=== PATIENT | male | born 1950 | race Caucasian/White ===

== ENCOUNTER 2019-03-19 18:41 | Inpatient (IN) | payer MEDICARE, BC ==
[2019-03-19] MEDS ORDERED: SODIUM CHLORIDE 0.9% 1,000 ML IV STA ×2 (19:36)
[2019-03-19] MEDS ORDERED: KETOROLAC 30 MG/ML 1 ML VIAL IVP STA (19:37)
--- NOTE | 2019-03-19 19:40 | ED ---
Fever HPI - General Chief Complaint: Fever Stated Complaint: Chills, Back Pain Time Seen by Provider: 03/19/19 18:53 Source: patient, family, RN notes reviewed Mode of arrival: wheelchair Limitations: no limitations - History of Present Illness Initial Comments: This is a 68-year-old male with a history of hypertension appendectomy past who just arrived this afternoon for [facility] where he drove from to attend a democrat today. Approximate 2-30 p.m. today started developing shakes upon arrival here he was found have a fever with a temperature 104.7. He is tachycardic he complains left flank pain. No prior history of kidney disease kidney stones pyelonephritis no overt abdominal pain. No cough or shortness of breath no other symptoms other than sharp left-sided flank pain at this time. MD Complaint: fever, other - Related Data Home Medications Medication Instructions Recorded Confirmed Aspirin EC [Ecotrin Low Dose] 81 mg PO DAILY 03/19/19 03/19/19 Atorvastatin [Lipitor] 40 mg PO DAILY 03/19/19 03/19/19 Lisinopril 20 mg PO DAILY 03/19/19 03/19/19 Lisinopril [Zestril] 10 mg PO DAILY 03/19/19 03/19/19 Multivitamins, Thera [Multivitamin 1 tab PO DAILY 03/19/19 03/19/19 (formulary)] Allergies Allergy/AdvReac Type Severity Reaction Status Date / Time No Known Allergies Allergy Verified 03/19/19 19:50 Review of Systems ROS Statement: Those systems with pertinent positive or pertinent negative responses have been documented in the HPI. ROS Other: All systems not noted in ROS Statement are negative. Past Medical History Past Medical History: Hyperlipidemia, Hypertension History of Any Multi-Drug Resistant Organisms: None Reported Past Surgical History: Appendectomy, Orthopedic Surgery Past Psychological History: No Psychological Hx Reported Smoking Status: Never smoker Past Alcohol Use History: Daily Past Drug Use History: None Reported General Exam - General Exam Comments Initial Comments: This is a well-developed well-nourished awake alert oriented times 3 male Limitations: no limitations General appearance: alert, anxious, in distress Head exam: Present: atraumatic, normocephalic, normal inspection Eye exam: Present: normal appearance, PERRL, EOMI. Absent: scleral icterus, conjunctival injection, periorbital swelling ENT exam: Present: mucous membranes dry Neck exam: Present: normal inspection. Absent: tenderness, meningismus, lymphadenopathy Respiratory exam: Present: normal lung sounds bilaterally. Absent: respiratory distress, wheezes, rales, rhonchi, stridor Cardiovascular Exam: Present: normal rhythm, tachycardia, normal heart sounds. Absent: systolic murmur, diastolic murmur, rubs, gallop, clicks GI/Abdominal exam: Present: soft, normal bowel sounds. Absent: distended, tenderness, guarding, rebound, rigid Extremities exam: Present: normal inspection, full ROM, normal capillary refill. Absent: tenderness, pedal edema, joint swelling, calf tenderness Back exam: Present: normal inspection Neurological exam: Present: alert, oriented X3, CN II-XII intact Psychiatric exam: Present: normal affect, normal mood Skin exam: Present: warm, dry, intact, normal color. Absent: rash Course Vital Signs 03/19/19 03/19/19 03/19/19 18:53 19:27 19:42 Temperature 103 F H 104.7 F H 104.7 F H Pulse Rate 129 H 129 H 130 H Respiratory 20 20 20 Rate Blood Pressure 115/70 165/80 149/80 O2 Sat by Pulse 93 L 93 L 95 Oximetry 03/19/19 03/19/19 03/19/19 19:57 20:00 20:15 Temperature 104.7 F H 104.7 F H 104.8 F H Pulse Rate 128 H 135 H 129 H Respiratory 18 19 19 Rate Blood Pressure 141/95 148/82 125/81 O2 Sat by Pulse 94 L 93 L 94 L Oximetry 03/19/19 03/19/19 03/19/19 20:30 20:45 22:03 Temperature 104.9 F H 104.9 F H 102.5 F H Pulse Rate 133 H 130 H 106 H Respiratory 19 19 19 Rate Blood Pressure 122/88 119/76 118/75 O2 Sat by Pulse 95 93 L 93 L Oximetry 03/20/19 00:21 Temperature 99.4 F Pulse Rate 99 Respiratory 18 Rate Blood Pressure 121/77 O2 Sat by Pulse 94 L Oximetry - Reevaluation(s) Reevaluation #1: 03/20/19 00:23 I did reevaluate patient several occasions he did get some improvement after IV fluids and pain medication. Medical Decision Making - Medical Decision Making I did discuss the findings with the patient family members. Patient be admitted I did discuss case with Dr. Rider. The presentation consistent with pneumonia hyper pyrexia some dehydration - Lab Data Result diagrams: 03/19/19 20:41 03/19/19 20:41 Lab Results 03/19/19 03/19/19 03/19/19 Range/Units 19:25 20:41 20:41 WBC 13.8 H (3.8-10.6) k/uL RBC 4.68 (4.30-5.90) m/uL Hgb 14.4 (13.0-17.5) gm/dL Hct 43.6 (39.0-53.0) % MCV 93.2 (80.0-100.0) fL MCH 30.9 (25.0-35.0) pg MCHC 33.1 (31.0-37.0) g/dL RDW 14.0 (11.5-15.5) % Plt Count 243 (150-450) k/uL Neutrophils % 91 % Lymphocytes % 3 % Monocytes % 4 % Eosinophils % 2 % Basophils % 0 % Neutrophils # 12.5 H (1.3-7.7) k/uL Lymphocytes # 0.4 L (1.0-4.8) k/uL Monocytes # 0.5 (0-1.0) k/uL Eosinophils # 0.2 (0-0.7) k/uL Basophils # 0.1 (0-0.2) k/uL Sodium 137 (137-145) mmol/L Potassium 4.2 (3.5-5.1) mmol/L Chloride 105 (98-107) mmol/L Carbon Dioxide 23 (22-30) mmol/L Anion Gap 9 mmol/L BUN 17 (9-20) mg/dL Creatinine 1.04 (0.66-1.25) mg/dL Est GFR (CKD-EPI)AfAm 84 (>60 ml/min/1.73 sqM) Est GFR (CKD-EPI)NonAf 73 (>60 ml/min/1.73 sqM) Glucose 155 H (74-99) mg/dL Plasma Lactic Acid Reilly (0.7-2.0) mmol/L Calcium 9.5 (8.4-10.2) mg/dL Magnesium 1.8 (1.6-2.3) mg/dL Total Bilirubin 0.7 (0.2-1.3) mg/dL AST 23 (17-59) U/L ALT 27 (21-72) U/L Alkaline Phosphatase 98 (38-126) U/L Creatine Kinase 183 H (55-170) U/L Total Protein 7.0 (6.3-8.2) g/dL Albumin 4.1 (3.5-5.0) g/dL Urine Color Yellow Urine Appearance Clear (Clear) Urine pH 6.0 (5.0-8.0) Ur Specific [place] 1.025 (1.001-1.035) Urine Protein 1+ H (Negative) Urine Glucose (UA) Negative (Negative) Urine Ketones Negative (Negative) Urine Blood Negative (Negative) Urine Nitrite Negative (Negative) Urine Bilirubin Negative (Negative) Urine Urobilinogen 4.0 (<2.0) mg/dL Ur Leukocyte Esterase Negative (Negative) Urine RBC 1 (0-5) /hpf Urine WBC 2 (0-5) /hpf Ur Squamous Epith Cells <1 (0-4) /hpf Hyaline Casts 13 H (0-2) /lpf Urine Mucus Many H (None) /hpf 03/19/19 Range/Units 20:41 WBC (3.8-10.6) k/uL RBC (4.30-5.90) m/uL Hgb (13.0-17.5) gm/dL Hct (39.0-53.0) % MCV (80.0-100.0) fL MCH (25.0-35.0) pg MCHC (31.0-37.0) g/dL RDW (11.5-15.5) % Plt Count (150-450) k/uL Neutrophils % % Lymphocytes % % Monocytes % % Eosinophils % % Basophils % % Neutrophils # (1.3-7.7) k/uL Lymphocytes # (1.0-4.8) k/uL Monocytes # (0-1.0) k/uL Eosinophils # (0-0.7) k/uL Basophils # (0-0.2) k/uL Sodium (137-145) mmol/L Potassium (3.5-5.1) mmol/L Chloride (98-107) mmol/L Carbon Dioxide (22-30) mmol/L Anion Gap mmol/L BUN (9-20) mg/dL Creatinine (0.66-1.25) mg/dL Est GFR (CKD-EPI)AfAm (>60 ml/min/1.73 sqM) Est GFR (CKD-EPI)NonAf (>60 ml/min/1.73 sqM) Glucose (74-99) mg/dL Plasma Lactic Acid Reilly 1.6 (0.7-2.0) mmol/L Calcium (8.4-10.2) mg/dL Magnesium (1.6-2.3) mg/dL Total Bilirubin (0.2-1.3) mg/dL AST (17-59) U/L ALT (21-72) U/L Alkaline Phosphatase (38-126) U/L Creatine Kinase (55-170) U/L Total Protein (6.3-8.2) g/dL Albumin (3.5-5.0) g/dL Urine Color Urine Appearance (Clear) Urine pH (5.0-8.0) Ur Specific [place] (1.001-1.035) Urine Protein (Negative) Urine Glucose (UA) (Negative) Urine Ketones (Negative) Urine Blood (Negative) Urine Nitrite (Negative) Urine Bilirubin (Negative) Urine Urobilinogen (<2.0) mg/dL Ur Leukocyte Esterase (Negative) Urine RBC (0-5) /hpf Urine WBC (0-5) /hpf Ur Squamous Epith Cells (0-4) /hpf Hyaline Casts (0-2) /lpf Urine Mucus (None) /hpf - Radiology Data Radiology results: report reviewed (I did review the imaging and report evidence of a left lower lobe infiltrate. Nonspecific abdominal findings renal cyst noted), image reviewed Disposition Clinical Impression: Left lower lobe pneumonia, Hyperpyrexia, Dehydration, Tachycardia, Left flank pain Disposition: ADMITTED IP TO THIS [facility] Condition: Fair Referrals: Nonstaff,Physician [Primary Care Provider] - 1-2 days
[2019-03-19 19:53] LABS: Appearance,Urine Clear (Clear); Bilirubin,Urine Negative (Negative); Blood,Urine Negative (Negative); Color,Urine Yellow; Glucose,Urine (UA) Negative (Negative); Hyaline Casts,Urine 13 /lpf (0-2); Ketones,Urine Negative (Negative); Leukocyte Esterase,Urine Negative (Negative); Mucus,Urine Many /hpf; Nitrite,Urine Negative (Negative); Protein,Urine 1+ (Negative); RBC,Urine 1 /hpf (0-5); Specific Gravity,Urine 1.025 (1.001-1.035); Squamous Epithelial Cell,Urine <1 /hpf (0-4)
[2019-03-19] MEDS ORDERED: cefTRIAXone IN SWFI 1,000 MG/10 ML SYRINGE IVP STA (20:14)
--- NOTE | 2019-03-19 20:18 | XR ---
EXAMINATION TYPE: XR chest 2V DATE OF EXAM: 03/19/2019 COMPARISON: None HISTORY: 68-year-old male with cough TECHNIQUE: PA and lateral views FINDINGS: Are normal size. Low lung volumes and crowded vascular markings. Aorta within normal limits. Possible subtle nodularity or summation artifact right midlung. Possible larger nodularity versus infiltrate along the left heart margin. Additional patchy left basilar and posterior basilar opacity. IMPRESSION: Either atelectasis or pneumonia the left base. Correlate with patient's symptoms. Follow-up after treatment to exclude a mass along the left heart margin. On the follow-up exam, the r ight mid lung can also be assessed to exclude a nodule here.
--- NOTE | 2019-03-19 20:20 | XR ---
EXAMINATION TYPE: XR KUB DATE OF EXAM: 03/19/2019 CLINICAL DATA: 68-year-old male with pain, PHH COMPARISON: None FINDINGS: Lung bases are clear. No evidence for free intraperitoneal air. There are scattered colonic air-fluid levels. No significant stool burden. A small bowel loop in the right midabdomen is dilated at 4.0 cm. Rectal air is present. IMPRESSION: Scattered air-fluid levels. Air-fluid levels are present in the colon as well suggesting liquid stool . A dilated small bowel loop in the right mid abdomen measures 4.0 cm. Correlate for enteritis or gen eralized ileus.
[2019-03-19 20:56] LABS: Basophils # (A) 0.1 k/uL (0-0.2); Basophils % (A) 0 %; Eosinophils # (A) 0.2 k/uL (0-0.7); Eosinophils % (A) 2 %; HCT 43.6 % (39.0-53.0); HGB 14.4 gm/dL (13.0-17.5); Lymphocytes # (A) 0.4 k/uL (1.0-4.8); Lymphocytes % (A) 3 %; MCH 30.9 pg (25.0-35.0); MCHC 33.1 g/dL (31.0-37.0); MCV 93.2 fL (80.0-100.0); Mean Platelet Volume 7.4; Monocytes # (A) 0.5 k/uL (0-1.0); Monocytes % (A) 4 %; Neutrophils # (A) 12.5 k/uL (1.3-7.7); Neutrophils % (A) 91 %; Platelet Count 243 k/uL (150-450); RBC 4.68 m/uL (4.30-5.90); WBC 13.8 k/uL (3.8-10.6)
[2019-03-19 21:04] LABS: Albumin 4.1 g/dL (3.5-5.0); Calcium 9.5 mg/dL (8.4-10.2); Magnesium 1.8 mg/dL (1.6-2.3); Potassium 4.2 mmol/L (3.5-5.1); Total Bilirubin 0.7 mg/dL (0.2-1.3)
--- NOTE | 2019-03-19 23:40 | CT ---
EXAM: CT Chest With Intravenous Contrast CLINICAL HISTORY: Trauma fever chills back pain TECHNIQUE: Axial computed tomography images of the chest with intravenous contrast. CTDI is 24.3 mGy and DLP is 1439 mGy-cm. This CT exam was performed using one or more of the following dose reduction techniques: automated exposure control, adjustment of the mA and/or kV according to patient size, and/or use of iterative reconstruction technique. COMPARISON: No relevant prior studies available. FINDINGS: Lungs: Consolidation and infiltrate in the left lower lobe with small associated pleural effusion findings may represent infectious pneumonic process. Mild chronic changes in the right lung base from atelectasis. Pleural space: Unremarkable. No pneumothorax. No significant effusion. Heart: Unremarkable. No cardiomegaly. No significant pericardial effusion. Bones/joints: Unremarkable. No acute fracture. Old healed rib fractures on the left. Soft tissues: Unremarkable. Vasculature: Unremarkable. No thoracic aortic aneurysm. Lymph nodes: Unremarkable. No enlarged lymph nodes. IMPRESSION: Left lower lobe consolidation and associated effusion suspicious for an infectious pneumonic process EXAM: CT Abdomen and Pelvis With Intravenous Contrast CLINICAL HISTORY: Trauma, fevers chills back pain TECHNIQUE: Axial computed tomography images of the abdomen and pelvis with intravenous contrast. CTDI is 24.3 mGy and DLP is 1439 mGy-cm. This CT exam was performed using one or more of the following dose reduction techniques: automated exposure control, adjustment of the mA and/or kV according to patient size, and/or use of iterative reconstruction technique. COMPARISON: No relevant prior studies available. FINDINGS: Lung bases: Unremarkable. No mass. No consolidation. ABDOMEN: Liver: Unremarkable. No mass. Gallbladder and bile ducts: Unremarkable. No calcified stones. No ductal dilation. Pancreas: Unremarkable. No mass. No ductal dilation. Spleen: Unremarkable. No splenomegaly. Adrenals: Unremarkable. No mass. Kidneys and ureters: 7.4 cm cyst upper pole left kidney. No evidence for hydronephrosis. There is some bilateral perinephric stranding but no evidence for acute abnormality of the kidneys. No solid mass. No hydronephrosis. Stomach and bowel: Unremarkable. No obstruction. No mucosal thickening. PELVIS: Appendix: The appendix is not identified. Bladder: Unremarkable. No mass. Reproductive: Unremarkable as visualized. ABDOMEN and PELVIS: Intraperitoneal space: Unremarkable. No free air. No significant fluid collection. Bones/joints: Chronic degenerative changes lumbar spine no evidence for acute fracture areas bilateral spondylolysis at L5-S1 which is chronic. Soft tissues: Unremarkable. Vasculature: Unremarkable. No abdominal aortic aneurysm. Lymph nodes: Unremarkable. No enlarged lymph nodes. IMPRESSION: No acute abnormality in the abdomen or pelvis
[2019-03-20] MEDS ORDERED: AZITHROMYCIN 500 MG in SODIUM CHLORIDE 0.9% 250 ML IVPB STA (00:26)
[2019-03-20] MEDS ORDERED: PNEUMONIA PROTOCOL UTILIZED 1 EACH MISC PO PRN (00:26)
[2019-03-20] MEDS: SODIUM CHLORIDE 0.9% 1,000 ML IV SCH ×3 (00:55→20:08)
[2019-03-20] MEDS: HYDROcodone/APAP 5-325MG 1 EACH TAB PO PRN ×2 (02:43→11:32)
--- NOTE | 2019-03-20 02:43 | P.HPIM ---
History of Present Illness H&P Date: 03/20/19 Chief Complaint: fever and chills, coughing 5-year-old male with history of hypertension hyperlipidemia Patient has been at his baseline status of health up until few days ago when he noticed some coughing yesterday productive of thick sputum today [place]daughter[place] graduation libertarian when in route he felt weak started having chills and fever felt extremely tired and decided come the hospital He denies any chest pain or trouble breathing denies any wheezing denies any nausea vomiting or any no sore throat abdominal pain changes in his urinary or bowel habits denies any GI bleeding he denies any recent traveling out of the country or exposure to any inhalant irritants. He denies any smoking denies any weight loss denies any hemoptysis denies any night sweats In the ED CT scan showed consolidation left lower lobe with effusion suggestive of pneumonia patient was febrile tachycardic with elevated white count admitted for sepsis 08/20 penumonia Review of Systems Pertinent positives as noted in HPI. All other systems were reviewed and are negative Past Medical History Past Medical History: Hyperlipidemia, Hypertension Additional Past Medical History / Comment(s): Pt has sleep apnea, just completed sleep study; has new CPAP History of Any Multi-Drug Resistant Organisms: None Reported Past Surgical History: Appendectomy, Orthopedic Surgery Additional Past Surgical History / Comment(s): left knee surgery 50 years Past Anesthesia/Blood Transfusion Reactions: No Reported Reaction Past Psychological History: No Psychological Hx Reported Smoking Status: Former smoker Past Alcohol Use History: Daily Past Drug Use History: None Reported Medications and Allergies Home Medications Medication Instructions Recorded Confirmed Type Aspirin EC [Ecotrin Low Dose] 81 mg PO DAILY 03/19/19 03/19/19 History Atorvastatin [Lipitor] 40 mg PO DAILY 03/19/19 03/19/19 History Lisinopril 20 mg PO DAILY 03/19/19 03/19/19 History Lisinopril [Zestril] 10 mg PO DAILY 03/19/19 03/19/19 History Multivitamins, Thera [Multivitamin 1 tab PO DAILY 03/19/19 03/19/19 History (formulary)] Allergies Allergy/AdvReac Type Severity Reaction Status Date / Time No Known Allergies Allergy Verified 03/19/19 19:50 Physical Exam Vitals: Vital Signs Temp Pulse Pulse Resp BP BP Pulse Ox 03/20/19 01:50 98.6 F 83 20 118/73 94 L 03/20/19 00:21 99.4 F 99 18 121/77 94 L 03/19/19 22:03 102.5 F H 106 H 19 118/75 93 L 03/19/19 20:45 104.9 F H 130 H 19 119/76 93 L 03/19/19 20:30 104.9 F H 133 H 19 122/88 95 03/19/19 20:15 104.8 F H 129 H 19 125/81 94 L 03/19/19 20:00 104.7 F H 135 H 19 148/82 93 L 03/19/19 19:57 104.7 F H 128 H 18 141/95 94 L 03/19/19 19:42 104.7 F H 130 H 20 149/80 95 03/19/19 19:27 104.7 F H 129 H 20 165/80 93 L 03/19/19 18:53 103 F H 129 H 20 115/70 93 L Intake and Output 03/19/19 03/19/19 03/20/19 14:59 22:59 06:59 Other: Weight 90.718 kg Constitutional: No acute distress, conversant, pleasant Eyes: Anicteric sclerae, moist conjunctiva, no lid-lag Pupils equal round reactive to light ENMT: NC/AT Oropharynx clear, no erythema, exudates Neck: Supple, FROM, no masses, or JVD No carotid bruits No thyromegaly Lungs: good breath sounds bilaterally, inspiratory rales at lung bases Clear to percussion Normal respiratory effort, no accessory muscle use Cardiovascular: Heart regular in rate and rhythm, No murmurs, gallops, or rubs No peripheral edema Abdominal: Soft Nontender, no guarding, rebound or rigidity Abdomen moving with respiration Normoactive bowel sounds No hepatomegaly, No splenomegaly No palpable mass No abdominal wall hernia noted Skin: Normal temperature, tone, texture, turgor No induration No subcutaneous nodules No rash, lesions No ulcers Extremities: No digital cyanosis No clubbing Pedal pulses intact and symmetrical Radial pulses intact and symmetrical No calf tenderness Psychiatric: Alert and oriented to person, place and time Appropriate affect fair judgement Neuro Muscles Strength 5/5 in all 4 extremities Sensation to light touch grossly present throughout Cranial nerves II-XII grossly intact No focal sensory deficits Lymphatics: no palpable cervical or supraclavicular , or inguinal lymph nodes Results CBC & Chem 7: 03/19/19 20:41 03/19/19 20:41 Labs: Abnormal Lab Results - Last 24 Hours (Table) 03/19/19 03/19/19 03/19/19 Range/Units 19:25 20:41 20:41 WBC 13.8 H (3.8-10.6) k/uL Neutrophils # 12.5 H (1.3-7.7) k/uL Lymphocytes # 0.4 L (1.0-4.8) k/uL Glucose 155 H (74-99) mg/dL Creatine Kinase 183 H (55-170) U/L Urine Protein 1+ H (Negative) Hyaline Casts 13 H (0-2) /lpf Urine Mucus Many H (None) /hpf Thrombosis Risk Factor Assmnt - Choose All That Apply Any of the Below Risk Factors Present?: Yes Each Factor Represents 1 point: Obesity (BMI >25) Other Risk Factors: Yes Each Risk Factor Represents 2 Points: Age 61-74 years Thrombosis Risk Factor Assessment Total Risk Factor Score: 3 Thrombosis Risk Factor Assessment Level: Moderate Risk Assessment and Plan Assessment: 68-year-old male with history of hypertension hyperlipidemia admitted as an inpa tient with anticipated length of stay more than 2 midnights for community- acquired pneumonia and sepsis Plan: sepsis community acquired pneumonia patient started on antibiotics follow-up cultures Continue Rocephin and azithromycin Tylenol for fevers [place] for pain control Monitor vital signs chronic conditions hypertension hyperlipidemia resume home meds CODE STATUS full code DVT prophylaxis: heparin subcu 3 times a day Discussed with: Patient, ER, RN Anticipated length of stay more than [address]: home A total of 60 minutes was spent on the care of this complex patient more than 50% of the time was spent in counseling and care coordination.
[2019-03-20] MEDS: IPRATROPIUM-ALBUTEROL 3 ML NEB INHALATION SCH ×6 (03:26→23:25)
[2019-03-20] MEDS: HEPARIN SODIUM,PORCINE 5,000 UNIT/ML 1 ML VIAL SQ SCH ×2 (08:14→16:56)
[2019-03-20] MEDS: ASPIRIN 81 MG PO SCH (08:15)
[2019-03-20] MEDS: MULTIVITAMINS, THERA 1 EACH TAB PO SCH (08:15)
[2019-03-20] MEDS: ATORVASTATIN 40 MG TAB PO SCH (08:15)
[2019-03-20] MEDS: LISINOPRIL 20 MG TAB PO SCH (08:16)
[2019-03-20] MEDS: LISINOPRIL 10 MG TAB PO SCH (08:16)
[2019-03-20] MEDS: ACETAMINOPHEN TAB 500 MG TAB PO PRN (15:51)
[2019-03-20] MEDS: KETOROLAC 30 MG/ML 1 ML VIAL IVP SCH (16:51)
[2019-03-20] MEDS ORDERED: IPRATROPIUM-ALBUTEROL 3 ML NEB INHALATION PRN (16:56)
--- NOTE | 2019-03-20 16:59 | P.PN ---
Subjective Progress Note Date: 03/20/19 Patient seen and examined in follow-up complaining of posterior left back pain worse with deep breaths, nursing reporting low-grade fever. Objective - Vital Signs Vital signs: Vital Signs Temp 100.6 F H 03/20/19 15:00 Pulse 80 03/20/19 15:51 Resp 20 03/20/19 15:01 BP 152/84 03/20/19 15:00 Pulse Ox 87 L 03/20/19 15:01 Intake & Output 03/19/19 03/20/19 03/20/19 18:59 06:59 18:59 Intake Total 100 520 Balance 100 520 Weight 90.718 kg Intake: Oral 100 520 Other: # Voids 2 4 # Bowel Movements 0 - Exam Constitutional: No acute distress, conversant, pleasant Eyes: Anicteric sclerae, moist conjunctiva, no lid-lag, PERRLA ENMT: NC/AT,Oropharynx clear, no erythema, exudates Neck:Supple, FROM, no masses, or JVD, No carotid bruits; No thyromegaly Lungs: Left Lower lung field rhonchi, unlabored on 2 L nasal cannula Cardiovascular: Heart regular in rate and rhythm, No murmurs, gallops, or rubs no peripheral edema Abdominal: Soft Nontender, nom distended, no guarding, no rebound or rigidity, Normoactive bowel sounds No hepatomegaly, No splenomegaly, No palpable mass No abdominal wall hernia noted Skin: Normal temperature, tone, texture, turgor, No induration No subcutaneous nodules, No rash, lesions, No ulcers Extremities:No digital cyanosis No clubbing, Pedal pulses intact and symmetrical Radial pulses intact and symmetrical Normal gait and station, No calf tenderness Psychiatric: Alert and oriented to person, place and time, Appropriate affect Intact judgement Neuro: Muscles Strength 5/5 in all 4 extremities, Sensation to light touch grossly present throughout, Cranial nerves II-XII grossly intact. No focal sensory deficits - Labs CBC & Chem 7: 03/19/19 20:41 03/19/19 20:41 Labs: Abnormal Lab Results - Last 24 Hours (Table) 03/19/19 03/19/19 03/19/19 Range/Units 19:25 20:41 20:41 WBC 13.8 H (3.8-10.6) k/uL Neutrophils # 12.5 H (1.3-7.7) k/uL Lymphocytes # 0.4 L (1.0-4.8) k/uL Glucose 155 H (74-99) mg/dL Creatine Kinase 183 H (55-170) U/L Urine Protein 1+ H (Negative) Hyaline Casts 13 H (0-2) /lpf Urine Mucus Many H (None) /hpf Assessment and Plan (1) Sepsis Narrative/Plan: * Patient still febrile, recheck CBC previous with leukocytosis of 13.8 * Secondary to left lower lobe community-acquired pneumonia * Continue empiric IV antibiotics with Rocephin and azithromycin, sputum culture sent, blood culture pending * Patient hemodynamically stable, Current Visit: Yes Status: Acute Code(s): A41.9 - SEPSIS, UNSPECIFIED ORGANISM SNOMED Code(s): 61711638 (2) Acute respiratory failure with hypoxia Narrative/Plan: * Secondary to left lower lobe community-acquired pneumonia * noted desaturations On 2 L nasal cannula continue with supplemental titrated up to keep saturations 9092% * Continue breathing treatments, will add Mucinex, Prn DUO nebs, IS Current Visit: Yes Status: Acute Code(s): J96.01 - ACUTE RESPIRATORY FAILURE WITH HYPOXIA SNOMED Code(s): 73726713 (3) Left lower lobe pneumonia Narrative/Plan: * Continue antibiotic coverage for community-acquired protocol Current Visit: Yes Status: Acute Code(s): J18.1 - LOBAR PNEUMONIA, UNSPECIFIED ORGANISM SNOMED Code(s): 366197291 (4) Essential hypertension Narrative/Plan: * Blood pressure stable and controlled continue current regimen Current Visit: Yes Status: Acute Code(s): I10 - ESSENTIAL (PRIMARY) HYPERTENSION SNOMED Code(s): 59056593 (5) Hyperlipidemia Narrative/Plan: * Continue home regimen Current Visit: Yes Status: Acute Code(s): E78.5 - HYPERLIPIDEMIA, UN SPECIFIED SNOMED Code(s): 56090078 Plan: Disposition * Added Toradol for pain, IS, prn duo nebs * Recheck labs tomorrow and chest x-ray
[2019-03-20 17:14] LABS: Basophils # (A) 0.1 k/uL (0-0.2); Basophils % (A) 0 %; Eosinophils # (A) 0.1 k/uL (0-0.7); Eosinophils % (A) 1 %; HCT 40.6 % (39.0-53.0); HGB 13.5 gm/dL (13.0-17.5); Lymphocytes % (A) 7 %; MCH 31.7 pg (25.0-35.0); MCHC 33.3 g/dL (31.0-37.0); MCV 95.3 fL (80.0-100.0); Mean Platelet Volume 7.8; Monocytes # (A) 0.8 k/uL (0-1.0); Monocytes % (A) 5 %; Neutrophils # (A) 13.6 k/uL (1.3-7.7); Neutrophils % (A) 87 %; Platelet Count 247 k/uL (150-450); RBC 4.26 m/uL (4.30-5.90); RDW 14.2 % (11.5-15.5); WBC 15.7 k/uL (3.8-10.6)
[2019-03-20] MEDS: guaiFENesin 600 MG TABLET.ER PO SCH (20:09)
[2019-03-21] MEDS: AZITHROMYCIN 500 MG TAB PO SCH ×2 (00:17→23:59)
[2019-03-21] MEDS: KETOROLAC 30 MG/ML 1 ML VIAL IVP SCH ×4 (00:18→18:47)
[2019-03-21] MEDS: HEPARIN SODIUM,PORCINE 5,000 UNIT/ML 1 ML VIAL SQ SCH ×4 (00:18→23:59)
[2019-03-21] MEDS: IPRATROPIUM-ALBUTEROL 3 ML NEB INHALATION SCH ×6 (05:41→23:45)
[2019-03-21] MEDS: SODIUM CHLORIDE 0.9% 1,000 ML IV SCH ×2 (08:06→16:52)
[2019-03-21] MEDS: ACETAMINOPHEN TAB 500 MG TAB PO PRN ×2 (08:06→22:26)
[2019-03-21] MEDS: ATORVASTATIN 40 MG TAB PO SCH (08:07)
[2019-03-21] MEDS: ASPIRIN 81 MG PO SCH (08:07)
[2019-03-21] MEDS: LISINOPRIL 10 MG TAB PO SCH (08:07)
[2019-03-21] MEDS: guaiFENesin 600 MG TABLET.ER PO SCH ×2 (08:07→22:06)
[2019-03-21] MEDS: MULTIVITAMINS, THERA 1 EACH TAB PO SCH (08:07)
[2019-03-21] MEDS: LISINOPRIL 20 MG TAB PO SCH (08:08)
[2019-03-21 08:16] LABS: Basophils % (A) 0 %; Eosinophils # (A) 0.1 k/uL (0-0.7); Eosinophils % (A) 1 %; HCT 40.1 % (39.0-53.0); HGB 13.2 gm/dL (13.0-17.5); Lymphocytes # (A) 0.6 k/uL (1.0-4.8); Lymphocytes % (A) 4 %; MCHC 32.8 g/dL (31.0-37.0); MCV 94.4 fL (80.0-100.0); Mean Platelet Volume 7.6; Monocytes # (A) 0.7 k/uL (0-1.0); Monocytes % (A) 5 %; Neutrophils # (A) 14.3 k/uL (1.3-7.7); Neutrophils % (A) 90 %; Platelet Count 244 k/uL (150-450); RBC 4.24 m/uL (4.30-5.90); RDW 13.8 % (11.5-15.5); WBC 15.8 k/uL (3.8-10.6)
--- NOTE | 2019-03-21 08:29 | XR ---
EXAMINATION TYPE: XR chest 2V DATE OF EXAM: 03/21/2019 COMPARISON: 03/19/2019 HISTORY: 68-year-old male follow-up pneumonia TECHNIQUE: Frontal and lateral views FINDINGS: Heart normal size. Worsening opacity left mid and lower lung. Right lung and pleural space appear rel atively clear with some strandy atelectasis at the bases. IMPRESSION: Progressively worsening, now small to moderate left effusion with adjacent atelectasis and/or consoli dation.
[2019-03-21 08:36] LABS: African American GFR (CKD) >90 (>60 ml/min/1.73 sqM); Anion Gap 8 mmol/L; Blood Urea Nitrogen 14 mg/dL (9-20); Calcium 8.6 mg/dL (8.4-10.2); Carbon Dioxide 23 mmol/L (22-30); Chloride 108 mmol/L (98-107); Glucose 122 mg/dL (74-99); Potassium 4.3 mmol/L (3.5-5.1); Sodium 139 mmol/L (137-145)
--- NOTE | 2019-03-21 09:28 | P.PN ---
Subjective Progress Note Date: 03/21/19 Patient seen and examined in follow-up reporting that his left-sided back pain is better since being placed on Toradol, symptomatically the patient does feel better. Still febrile this morning at 100.4. White count stable at 15.8 and chest x-ray showing progressive worsening now small to moderate left pleural effusion with adjacent atelectasis and/or consolidation. The patient working well with his incentive spirometer pulling approximately 1500 cc. Objective - Vital Signs Vital signs: Vital Signs Temp 100.4 F H 03/21/19 07:12 Pulse 96 03/21/19 08:48 Resp 16 03/21/19 07:12 BP 147/84 03/21/19 07:12 Pulse Ox 92 L 03/21/19 07:12 Intake & Output 03/20/19 03/21/19 03/21/19 18:59 06:59 18:59 Intake Total 720 100 Balance 720 100 Intake: Oral 720 100 Other: # Voids 4 1 - Exam Constitutional: No acute distress, conversant, pleasant Eyes: Anicteric sclerae, moist conjunctiva, no lid-lag, PERRLA ENMT: NC/AT,Oropharynx clear, no erythema, exudates Neck:Supple, FROM, no masses, or JVD, No carotid bruits; No thyromegaly Lungs: Left Lower lung field rhonchi with basilar crackles unlabored on 2 L nasal cannula Cardiovascular: Heart regular in rate and rhythm, No murmurs, gallops, or rubs no peripheral edema Abdominal: Soft Nontender, nom distended, no guarding, no rebound or rigidity, Normoactive bowel sounds No hepatomegaly, No splenomegaly, No palpable mass No abdominal wall hernia noted Skin: Normal temperature, tone, texture, turgor, No induration No subcutaneous nodules, No rash, lesions, No ulcers Extremities:No digital cyanosis No clubbing, Pedal pulses intact and symmetrical Radial pulses intact and symmetrical Normal gait and station, No calf tenderness Psychiatric: Alert and oriented to person, place and time, Appropriate affect Intact judgement Neuro: Muscles Strength 5/5 in all 4 extremities, Sensation to light touch grossly present throughout, Cranial nerves II-XII grossly intact. No focal sensory deficits - Labs CBC & Chem 7: 03/21/19 07:45 03/21/19 07:45 Labs: Abnormal Lab Results - Last 24 Hours (Table) 03/20/19 03/21/19 03/21/19 Range/Units 16:54 07:45 07:45 WBC 15.7 H 15.8 H (3.8-10.6) k/uL RBC 4.26 L 4.24 L (4.30-5.90) m/uL Neutrophils # 13.6 H 14.3 H (1.3-7.7) k/uL Lymphocytes # 0.6 L (1.0-4.8) k/uL Chloride 108 H (98-107) mmol/L Glucose 122 H (74-99) mg/dL Microbiology - Last 24 Hours (Table) 03/20/19 15:30 Gram Stain - Preliminary Sputum Sputum Culture - Preliminary 03/19/19 20:41 Blood Culture - Preliminary Blood No Growth after 24 hours Assessment and Plan (1) Sepsis Narrative/Plan: * Patient still febrile, leukocytosis stable at 15.8 * Secondary to left lower lobe community-acquired pneumonia * Continue empiric IV antibiotics with Rocephin and azithromycin, sputum culture sent, blood culture pending * Patient hemodynamically stable, Current Visit: Yes Status: Acute Code(s): A41.9 - SEPSIS, UNSPECIFIED ORGANISM SNOMED Code(s): 37759205 (2) Acute respiratory failure with hypoxia Narrative/Plan: * Secondary to left lower lobe community-acquired pneumonia with possible parapneumonic effusion and possible compressive atelectasis * X-ray today shows worsening pneumonia with mild to moderate left-sided pleural effusion likely parapneumonic will order a chest ultrasound and consult pulmonary for further recommendations * noted desaturations On 2 L nasal cannula continue with supplemental titrated up to keep saturations 90-92% * Continue breathing treatments, will add Mucinex, Prn DUO nebs, IS Current Visit: Yes Status: Acute Code(s): J96.01 - ACUTE RESPIRATORY FAILURE WITH HYPOXIA SNOMED Code(s): 44355218 (3) Left lower lobe pneumonia Narrative/Plan: * Continue antibiotic coverage for community-acquired protocol Current Visit: Yes Status: Acute Code(s): J18.1 - LOBAR PNEUMONIA, UNSPECIFIED ORGANISM SNOMED Code(s): 346175009 (4) Essential hypertension Narrative/Plan: * Blood pressure stable and controlled continue current regimen Current Visit: Yes Status: Acute Code(s): I10 - ESSENTIAL (PRIMARY) HYPERTENSION SNOMED Code(s): 36884997 (5) Hyperlipidemia Narrative/Plan: * Continue home regimen Current Visit: Yes Status: Acute Code(s): E78.5 - HYPERLIPIDEMIA, UNSPECIFIED SNOMED Code(s): 91012584 Plan: Disposition * Added Toradol for pain, IS, prn duo nebs * Recheck labs tomorrow and chest x-ray
--- NOTE | 2019-03-21 09:52 | US ---
EXAMINATION TYPE: US chest DATE OF EXAM: 03/21/2019 COMPARISON: 03/21/2019 CLINICAL HISTORY: 68-year-old male pleural effusion. TECHNIQUE: Targeted ultrasound of the posterior lower bilateral chest. Findings: EXAM MEASUREMENTS: Right Pleural Effusion pocket size: no fluid seen Left Pleural Effusion pocket size: 3.1 cm A/P Left skin surface to fluid distance: 4.5 cm Left side WAS NOT marked for possible thoracentesis outside the department as free fluid pocket measu re is less than 5cm with lung and complex fluid noted within entire pleural effusion. Pulmonologists are able to review the images in the patient?s EMR. IMPRESSIONS: Small left pleural effusion. Markings were not performed.
--- NOTE | 2019-03-21 13:15 | P.CNPUL ---
History of Present Illness Consult date: 03/21/19 Reason for consult: pneumonia History of present illness: A pleasant 68-year-old male patient, a nonsmoker without any previous history of lung disease, comes in with pleuritic left-sided chest pain. The patient was admitted to [facility] for a graduation libertarian and he felt sick, he was having chills and fever and he was having pleuritic left-sided chest pain which was quite extensive. At that point, he decided to come in to the hospital. His symptoms developed within 24 hours prior to him coming to the ED. No nausea. No vomiting. He was feeling quite weak. No bronchospasm or wheezing. No hemoptysis. Some limited congested cough without any significant sputum production. No exposure to any chemicals or respiratory irritants. Initial CAT scan of the chest showed left lower lobe consolidation with some pleural thickening consistent with pneumonia and the patient was started on a combination of Rocephin and Zithromax. Over the past 24 hours, the patient's pain remains quite active. Today's chest x-ray shows some worsening in the left lower lobe consolidation. There was some effusion as noted on the chest x-ray. Ultrasound of the chest was done and the fluid was small and based on that no marking was done. Collect however, the patient is feeling better. His pain is subsiding 1 is taking [place] and Toradol for pain control. His white cell count is at 15.8. No recurrent pneumonias. No hemoptysis. No history of DVT or pulmonary embolism. Review of Systems Constitutional: Reports chills, Reports fatigue, Reports fever, Reports weakness Eyes: denies as per HPI, denies blurred vision, denies bulging eye, denies decreased vision, denies diplopia, denies discharge, denies dry eye, denies irritation, denies itching, denies pain, denies photophobia, denies loss of peripheral vision, denies loss of vision, denies tunnel vision/blind spots Ears: deny: decreased hearing, ear discharge, earache, tinnitus Ears, nose, mouth and throat: Reports as per HPI Breasts: absent: as per HPI, gynecomastia Cardiovascular: Reports chest pain, Reports dyspnea on exertion, Reports shortness of breath Respiratory: Reports dyspnea, Reports pain on inspiration, Reports pleurisy Gastrointestinal: Denies abdominal pain, Denies diarrhea, Denies nausea, Denies vomiting Genitourinary: Reports as per HPI Musculoskeletal: Reports as per HPI Musculoskeletal: absent: ankle pain, ankle stiffness, ankle swelling, as per HPI, elbow pain, elbow stiffness, elbow swelling, foot pain, foot stiffness, foot swelling, hand pain, hand stiffness, hand swelling, hip pain, hip stiffness, hip swelling, knee pain, knee stiffness, knee swelling, shoulder pain, shoulder stiffness, shoulder swelling, wrist pain, wrist stiffness, wrist swelling Integumentary: Reports as per HPI Neurological: Reports as per HPI Psychiatric: Reports as per HPI Endocrine: Reports as per HPI, Reports fatigue Hematologic/Lymphatic: Reports as per HPI Allergic/Immunologic: Reports as per HPI Past Medical History Past Medical History: Hyperlipidemia, Hypertension Additional Past Medical History / Comment(s): Pt has sleep apnea, just completed sleep study; has new CPAP History of Any Multi-Drug Resistant Organisms: None Reported Past Surgical History: Appendectomy, Orthopedic Surgery Additional Past Surgical History / Comment(s): left knee surgery 50 years Past Anesthesia/Blood Transfusion Reactions: No Reported Reaction Past Psychological History: No Psychological Hx Reported Smoking Status: Former smoker Past Alcohol Use History: Daily Past Drug Use History: None Reported Medications and Allergies Home Medications Medication Instructions Recorded Confirmed Type Aspirin EC [Ecotrin Low Dose] 81 mg PO DAILY 03/19/19 03/19/19 History Atorvastatin [Lipitor] 40 mg PO DAILY 03/19/19 03/19/19 History Lisinopril 20 mg PO DAILY 03/19/19 03/19/19 History Lisinopril [Zestril] 10 mg PO DAILY 03/19/19 03/19/19 History Multivitamins, Thera [Multivitamin 1 tab PO DAILY 03/19/19 03/19/19 History (formulary)] Allergies Allergy/AdvReac Type Severity Reaction Status Date / Time No Known Allergies Allergy Verified 03/19/19 19:50 Physical Exam Vitals: Vital Signs Temp Pulse Pulse Resp BP Pulse Ox 03/21/19 11:57 92 03/21/19 11:45 88 03/21/19 10:19 97.6 F 03/21/19 08:48 96 03/21/19 08:37 96 03/21/19 07:12 100.4 F H 86 16 147/84 92 L 03/20/19 23:36 84 03/20/19 23:22 80 03/20/19 21:05 98.7 F 84 18 134/75 94 L 03/20/19 19:53 82 03/20/19 19:43 80 03/20/19 18:29 99.5 F 96 92 L 03/20/19 17:23 100.5 F H 03/20/19 15:51 80 03/20/19 15:36 80 03/20/19 15:01 20 87 L 03/20/19 15:00 100.6 F H 89 20 152/84 91 L Intake and Output 03/20/19 03/21/19 03/21/19 22:59 06:59 14:59 Intake Total 200 100 Balance 200 100 Intake: Oral 200 100 Other: # Voids 1 1 The patient appeared well nourished and normally developed. Vital signs as documented. Head exam is unremarkable. No scleral icterus or corneal arcus noted. Neck is without jugular venous distension, thyromegaly, or carotid bruits. Carotid upstrokes are brisk bilaterally. Lungs show diminished breath on the left lung base as the patient is having pleuritic chest pain and he is unable to fully expand his lungs. There is also some egophony and crackles in the left lung base yet mostly diminished breath sounds. No wheezes.. Cardiac exam reveals the PMI to be normally sized and situated. Rhythm is regular. First and second heart sounds normal. No murmurs, rubs or gallops. Abdominal exam reveals normal bowel sounds, no masses, no organomegaly and no aortic enlargement. Extremities are nonedematous and both femoral and pedal pulses are normal.Examination of the skin revealed no evidence of significant rashes, suspicious appearing nevi or other concerning lesions. Neurologically the patient has been awake and alert and there is no focal neurological deficits. Results - Laboratory Findings CBC and BMP: 03/21/19 07:45 03/21/19 07:45 Abnormal lab findings: Abnormal Labs 03/19/19 03/19/19 03/19/19 19:25 20:41 20:41 WBC 13.8 H RBC Neutrophils # 12.5 H Lymphocytes # 0.4 L Chloride Glucose 155 H Creatine Kinase 183 H Urine Protein 1+ H Hyaline Casts 13 H Urine Mucus Many H 03/20/19 03/21/19 03/21/19 16:54 07:45 07:45 WBC 15.7 H 15.8 H RBC 4.26 L 4.24 L Neutrophils # 13.6 H 14.3 H Lymphocytes # 0.6 L Chloride 108 H Glucose 122 H Creatine Kinase Urine Protein Hyaline Casts Urine Mucus - Diagnostic Findings Chest x-ray: image reviewed CT scan - chest: image reviewed Assessment and Plan Plan: 1 acute left lower lobe cleaned acquired pneumonia. The patient has consolidation in small amount of pleural fluid which is not amenable for thoracentesis at this point in time 2 acute hypoxic respiratory failure, improving 3 acute febrile illness secondary left lower lobe pneumonia 4 acute leukocytosis secondary to above 5 small left-sided pleural effusion 6 hypertension 7 hyperlipidemia 8 obstructive sleep apnea with an AHI of 9 and the patient was started on CPAP therapy Plan The sputum cultures still pending. Blood culture is negative. Check a Legionella urine antigen. Highly suspected pneumococcal left lower lobe pneumonia. Continue Rocephin and Zithromax. Watch for any development of sizable pleural effusion that may need to be drained. For now the pleural effusion is small. Continue same antibiotic coverage. Pain control. Incentive spirometer. We'll continue to follow
[2019-03-22] MEDS: KETOROLAC 30 MG/ML 1 ML VIAL IVP SCH ×2 (00:01→05:12)
[2019-03-22] MEDS: IPRATROPIUM-ALBUTEROL 3 ML NEB INHALATION SCH ×5 (05:19→20:26)
[2019-03-22] MEDS: SODIUM CHLORIDE 0.9% 1,000 ML IV SCH (05:32)
[2019-03-22] MEDS: guaiFENesin 600 MG TABLET.ER PO SCH ×2 (08:04→21:01)
[2019-03-22] MEDS: ATORVASTATIN 40 MG TAB PO SCH (08:04)
[2019-03-22] MEDS: LISINOPRIL 20 MG TAB PO SCH (08:04)
[2019-03-22] MEDS: ASPIRIN 81 MG PO SCH (08:04)
[2019-03-22] MEDS: LISINOPRIL 10 MG TAB PO SCH (08:04)
[2019-03-22] MEDS: MULTIVITAMINS, THERA 1 EACH TAB PO SCH (08:04)
[2019-03-22] MEDS: HEPARIN SODIUM,PORCINE 5,000 UNIT/ML 1 ML VIAL SQ SCH ×2 (08:04→15:21)
[2019-03-22] MEDS: HYDROcodone/APAP 5-325MG 1 EACH TAB PO PRN (08:10)
[2019-03-22 08:30] LABS: Basophils % (A) 0 %; Eosinophils # (A) 0.2 k/uL (0-0.7); Eosinophils % (A) 1 %; HCT 37.3 % (39.0-53.0); HGB 12.3 gm/dL (13.0-17.5); Lymphocytes # (A) 0.5 k/uL (1.0-4.8); Lymphocytes % (A) 3 %; MCHC 32.9 g/dL (31.0-37.0); MCV 94.2 fL (80.0-100.0); Mean Platelet Volume 7.4; Monocytes % (A) 7 %; Neutrophils # (A) 13.9 k/uL (1.3-7.7); Neutrophils % (A) 88 %; Platelet Count 214 k/uL (150-450); RBC 3.96 m/uL (4.30-5.90); RDW 12.7 % (11.5-15.5); WBC 15.7 k/uL (3.8-10.6)
[2019-03-22] MEDS: KETOROLAC 30 MG/ML 1 ML VIAL IVP PRN ×2 (11:01→16:49)
--- NOTE | 2019-03-22 11:36 | P.PN ---
Subjective Progress Note Date: 03/22/19 Principal diagnosis: Shortness of breath Patient is a 5-year-old male past medical history of hypertension, dyslipidemia, and remote tobacco abuse who presented to the emergency department with complaints of back pain, coughing, and thick yellow sputum. In the emergen cy department he initially underwent a chest x-ray which showed atelectasis versus pneumonia at the left base. He underwent a KUB which showed scattered air-fluid levels. He then underwent a CT chest/abdomen/pelvis. This demonstrated a left lower lobe consolidation with associated pleural effusion. Abdomen and pelvis was unremarkable. Laboratory analysis showed elevated white blood cell count 13.8. His initial temperature was 103 and then peaked at 104.7. He was started on IV fluids, antibiotics, and arrangements were made for admission for community-acquired pneumonia with sepsis. He was started on Rocephin and Zithromax. Repeat chest x-ray on 03/21 showed progressively worsening small to moderate left pleural effusion. This was followed by chest ultrasound which did not demonstrate significant effusion. Pulmonary was consulted who agreed with continuing Rocephin and Zithromax. Patient seen and examined at bedside. He denies any nausea or vomiting. He states he is still short of breath. Ambulating but not at rest. He walked the hallways 5-6 times yesterday. He continues to have back pain but this is improving. He is still feeling very fatigued and tired. He needs to drive back to [place] after discharge. We discussed arranging either his or friends to come and pick him up. We also discussed that if he is able to come off of oxygen and his white blood cell count decreases by tomorrow he will likely go home tomorrow morning. Patient is in agreement with plan of care. He states that he has a PCP and can easily follow-up next week in the clinic. Objective - Vital Signs Vital signs: Vital Signs Temp 98.8 F 03/22/19 05:15 Pulse 90 03/22/19 08:35 Resp 18 03/22/19 05:15 BP 124/72 03/22/19 05:15 Pulse Ox 94 L 03/22/19 05:15 Intake & Output 03/21/19 03/22/19 03/22/19 18:59 06:59 18:59 Intake Total 500 240 Balance 500 240 Intake: Oral 500 240 Other: # Voids 1 4 - Exam General: ill appearing, no distress, appears at stated age Derm: warm, dry Head: atraumatic, normocephalic, symmetric Eyes: EOMI, no lid lag, anicteric sclera Mouth: no lip lesion, mucus membranes moist Cardiovascular: S1S2 reg, no murmur, positive posterior tibial pulse bilateral, Lungs: decreased breath sounds bilateral, no rhonchi, no rales , no accessory muscle use Abdominal: soft, nontender to palpation, no guarding, no appreciable organomegaly Ext: no gross muscle atrophy, no edema, no contractures Neuro: CN II-XI grossly intact, no focal neuro deficits Psych: Alert, oriented, appropriate affect - Labs CBC & Chem 7: 03/22/19 07:43 03/21/19 07:45 Labs: Abnormal Lab Results - Last 24 Hours (Table) 03/22/19 Range/Units 07:43 WBC 15.7 H (3.8-10.6) k/uL RBC 3.96 L (4.30-5.90) m/uL Hgb 12.3 L (13.0-17.5) gm/dL Hct 37.3 L (39.0-53.0) % Neutrophils # 13.9 H (1.3-7.7) k/uL Lymphocytes # 0.5 L (1.0-4.8) k/uL Microbiology - Last 24 Hours (Table) 03/19/19 20:41 Blood Culture - Preliminary Blood No Growth after 48 hours Assessment and Plan Assessment: Left lower lobe community-acquired pneumonia with sepsis with associated small left-sided pleural effusion - continue with rocephin and zithromax - bronchodilators - Wean off oxygen -Ambulate in hallways -Repeat chest x-ray in 1 week to ensure clearance of pneumonia with PCP -Pulmonary recs -Anticipate discharge home in a.m. if white blood cell count is decreasing. -Pulmonary hygiene, Mucinex -IV fluids completed, we'll discontinue Acute hypoxic respiratory failure, improving -Continue to wean oxygen as able Hypertension, controlled -Continue with lisinopril -Follow blood pressure Dyslipidemia -Continue statin DVT prophylaxis: Early ambulation, heparin Discussed with: Patient, nursing Anticipated discharge: In a.m. if white blood cell count decreasing Anticipated discharge place: Home A total of 25 minutes was spent on the care of this complex patient more than 50% of the time was spent in counseling and care coordination.
--- NOTE | 2019-03-22 13:23 | P.PN ---
Subjective Progress Note Date: 03/22/19 Principal diagnosis: Acute community-acquired left lower lobe pneumonia A pleasant 68-year-old male patient, a nonsmoker without any previous history of lung disease, comes in with pleuritic left-sided chest pain. The patient was admitted to [facility] for a graduation constitution party and he felt sick, he was having chills and fever and he was having pleuritic left-sided chest pain which was quite extensive. At that point, he decided to come in to the hospital. His symptoms developed within 24 hours prior to him coming to the ED. No nausea. No vomiting. He was feeling quite weak. No bronchospasm or wheezing. No hemoptysis. Some limited congested cough without any significant sputum production. No exposure to any chemicals or respiratory irritants. Initial CAT scan of the chest showed left lower lobe consolidation with some pleural thickening consistent with pneumonia and the patient was started on a combination of Rocephin and Zithromax. Over the past 24 hours, the patient's pain remains quite active. Today's chest x-ray shows some worsening in the left lower lobe consolidation. There was some effusion as noted on the chest x-ray. Ultrasound of the chest was done and the fluid was small and based on that no marking was done. Collect however, the patient is feeling better. His pain is subsiding 1 is taking [place] and Toradol for pain control. His white cell count is at 15.8. No recurrent pneumonias. No hemoptysis. No history of DVT or pulmonary embolism. The patient is seen today 03/22/2019 in follow-up on the regular medical floor. He is currently sitting up at the bedside. Awake and alert in no acute distress. He is having a little bit more left-sided chest discomfort today as compared to yesterday. He has a loose cough. Maintaining O2 saturations in the 90s on 2 L. On room air assessment he was 83%. Blood culture reveals no growth to date. Sputum culture pending. White count 15.7. Hemoglobin 12.3. Urine Legionella antigen not detected. He remains on ceftriaxone and azithromycin along with bronchodilators. He is working well with the incentive spirometer. Toradol for pain control. Objective - Vital Signs Vital signs: Vital Signs Temp 98.8 F 03/22/19 05:15 Pulse 94 03/22/19 12:05 Resp 18 03/22/19 05:15 BP 124/72 03/22/19 05:15 Pulse Ox 83 L 03/22/19 11:38 Intake & Output 03/21/19 03/22/19 03/22/19 18:59 06:59 18:59 Intake Total 500 240 Balance 500 240 Intake: Oral 500 240 Other: # Voids 1 4 - Exam GENERAL EXAM: Alert, active, pleasant 68-year-old gentleman, fairly comfortable in no apparent distress. On 2 L nasal cannula. HEAD: Normocephalic. EYES: Normal reaction of pupils, equal size. NOSE: Clear with pink turbinates. THROAT: No erythema or exudates. NECK: No masses, no JVD. CHEST: No chest wall deformity. LUNGS: Equal air entry with few scattered rhonchi, crackles in left posterior base. CVS: S1 and S2 normal with no audible murmur, regular rhythm. ABDOMEN: No hepatosplenomegaly, normal bowel sounds, no guarding or rigidity. SPINE: No scoliosis or deformity SKIN: No rashes CENTRAL NERVOUS SYSTEM: No focal deficits, tone is normal in all 4 extremities. EXTREMITIES: There is no peripheral edema. No clubbing, no cyanosis. Peripher al pulses are intact. - Labs CBC & Chem 7: 03/22/19 07:43 03/21/19 07:45 Labs: Abnormal Lab Results - Last 24 Hours (Table) 03/22/19 Range/Units 07:43 WBC 15.7 H (3.8-10.6) k/uL RBC 3.96 L (4.30-5.90) m/uL Hgb 12.3 L (13.0-17.5) gm/dL Hct 37.3 L (39.0-53.0) % Neutrophils # 13.9 H (1.3-7.7) k/uL Lymphocytes # 0.5 L (1.0-4.8) k/uL Microbiology - Last 24 Hours (Table) 03/19/19 20:41 Blood Culture - Preliminary Blood No Growth after 48 hours Assessment and Plan Assessment: Impression: 1 acute left lower lobe cleaned acquired pneumonia. The patient has consolidation in small amount of pleural fluid which is not amenable for thoracentesis at this point in time 2 acute hypoxic respiratory failure, improving 3 acute febrile illness secondary left lower lobe pneumonia 4 acute leukocytosis secondary to above 5 small left-sided pleural effusion 6 hypertension 7 hyperlipidemia 8 obstructive sleep apnea with an AHI of 9 and the patient was started on CPAP therapy Plan: The patient was seen and evaluated by Dr. Snyder. We'll continue with the current treatment plan for now. Increase his activity as tolerated. Repeat a chest x-ray in the a.m. We will continue to follow and make recommendations based on his clinical status. I, the cosigning physician, performed a history & physical examination of the patient. Lungs sounds with scattered rhonchi, crackles in left base. Maintaining good O2 saturations in the 90s on 2 L/m per nasal cannula. I discussed the assessment and plan of care with my nurse practitioner, Bonny Mejia. I attest to the above note as dictated by her.
[2019-03-22] MEDS: ACETAMINOPHEN TAB 500 MG TAB PO PRN (21:01)
[2019-03-23] MEDS: AZITHROMYCIN 500 MG TAB PO SCH ×2 (00:35→23:54)
[2019-03-23] MEDS: HEPARIN SODIUM,PORCINE 5,000 UNIT/ML 1 ML VIAL SQ SCH ×4 (00:35→23:54)
[2019-03-23] MEDS: IPRATROPIUM-ALBUTEROL 3 ML NEB INHALATION SCH ×6 (01:26→20:23)
[2019-03-23] MEDS: KETOROLAC 30 MG/ML 1 ML VIAL IVP PRN (06:03)
[2019-03-23] MEDS: ASPIRIN 81 MG PO SCH (07:05)
[2019-03-23] MEDS: guaiFENesin 600 MG TABLET.ER PO SCH ×2 (07:05→20:10)
[2019-03-23] MEDS: ATORVASTATIN 40 MG TAB PO SCH (07:05)
[2019-03-23] MEDS: MULTIVITAMINS, THERA 1 EACH TAB PO SCH (07:05)
[2019-03-23 08:02] LABS: HCT 39.8 % (39.0-53.0); HGB 13.2 gm/dL (13.0-17.5); MCH 31.5 pg (25.0-35.0); MCHC 33.2 g/dL (31.0-37.0); MCV 94.9 fL (80.0-100.0); Mean Platelet Volume 7.1; Platelet Count 267 k/uL (150-450); RBC 4.19 m/uL (4.30-5.90); RDW 12.7 % (11.5-15.5); WBC 16.2 k/uL (3.8-10.6)
--- NOTE | 2019-03-23 08:23 | XR ---
EXAMINATION TYPE: XR chest 2V DATE OF EXAM: 03/23/2019 COMPARISON: 03/21/2019 HISTORY: Shortness of breath TECHNIQUE: Frontal and lateral views of the chest are obtained. FINDINGS: Scattered senescent parenchymal changes noted. Hyperinflation compatible with COPD. Large left-sided pleural effusion has increased in size. Underlying atelectasis infiltrate or and/or mass is difficult to exclude. Infiltrate or atelectasis right medial lung base noted. Heart size is stable. Mediastinal structures are stable and grossly unremarkable. No evidence for hilar prominence. Degenerative changes dorsal spine. IMPRESSION: 1. Large left-sided pleural effusion has increased in size. Underlying atelectasis infiltrate or and/ or mass is difficult to exclude. Infiltrate or atelectasis right medial lung base noted.
[2019-03-23] MEDS ORDERED: LISINOPRIL 10 MG TAB PO SCH (09:00)
--- NOTE | 2019-03-23 10:23 | CT ---
EXAMINATION TYPE: CT chest wo con DATE OF EXAM: 03/23/2019 COMPARISON: 03/19/2019 HISTORY: Left pleural effusion, Pneumonia CT DLP: 575.[address] of the chest was performed with lung and mediastinal window settings submitted. The la ck of contrast limits evaluation of the vascular, mediastinal and parenchymal structures including th e upper abdomen. LUNGS: Interval development of large left-sided pleural effusion with small aerated left lung apex no mayank. There is atelectatic change noted of the left lung. Underlying infiltrate or mass is difficult t o exclude. No significant right-sided effusion. MEDIASTINUM/SINDI: Thoracic aorta is of normal caliber with limited evaluation given lack of contrast . The heart is not enlarged. No evidence for mediastinal mass. No lymph nodes greater than 1cm. UPPER ABDOMEN: Large left renal cystic lesion. OTHER: No significant other abnormality. IMPRESSION: 1. Interval development of large left-sided pleural effusion with small aerated left lung apex noted . There is atelectatic change noted of the left lung.
[2019-03-23 12:01] LABS: INR 0.9 (<1.2); Prothrombin Time 10.2 sec (9.0-12.0)
[2019-03-23] MEDS ORDERED: HYDROmorphone 0.5 MG/0.5 ML SYRINGE IVP STA (13:13)
--- NOTE | 2019-03-23 14:43 | CT ---
EXAMINATION TYPE: CT chest tube insertion DATE OF EXAM: 03/23/2019 COMPARISON: CT 03/23/2019 HISTORY: chest tube insertion CT DLP: 1155 mGycm The procedure is discussed with the patient, the risks, complications, benefits and alternatives, wer e discussed and any questions were answered. Informed consent was obtained. The patient is placed p leonora on the CT table, prepped and draped in the usual sterile fashion. Utilizing a 22-gauge Chiba needle access into the left pleural space was achieved and there is conver eva to an O.035 system. Subsequent serial dilation to 0.035 system. There was serial dilation to 8 Trin[place] and placement of an 8 Trinidadian drainage catheter over guidewire. Samples obtained sent to [facility] for analysis. All elements of maximal barrier technique were utilized. The patient remained stable throughout the procedure with no immediate postprocedural complication. IMPRESSION: 1. Successful CT guided left-sided chest tube insertion for suspected empyema
--- NOTE | 2019-03-23 14:43 | P.PN ---
Subjective Progress Note Date: 03/23/19 Principal diagnosis: Acute community acquired left lower lobe pneumonia A pleasant 68-year-old male patient, a nonsmoker without any previous history of lung disease, comes in with pleuritic left-sided chest pain. The patient was admitted to [facility] for a graduation green party and he felt sick, he was having chills and fever and he was having pleuritic left-sided chest pain which was quite extensive. At that point, he decided to come in to the hospital. His symptoms developed within 24 hours prior to him coming to the ED. No nausea. No vomiting. He was feeling quite weak. No bronchospasm or wheezing. No hemoptysis. Some limited congested cough without any significant sputum production. No exposure to any chemicals or respiratory irritants. Initial CAT scan of the chest showed left lower lobe consolidation with some pleural thickening consistent with pneumonia and the patient was started on a combination of Rocephin and Zithromax. Over the past 24 hours, the patient's pain remains quite active. Today's chest x-ray shows some worsening in the left lower lobe consolidation. There was some effusion as noted on the chest x-ray. Ultrasound of the chest was done and the fluid was small and based on that no marking was done. Collect however, the patient is feeling better. His pain is subsiding 1 is taking Depauw and Toradol for pain control. His white cell count is at 15.8. No recurrent pneumonias. No hemoptysis. No history of DVT or pulmonary embolism. The patient is seen today 03/22/2019 in follow-up on the regular medical floor. He is currently sitting up at the bedside. Awake and alert in no acute distress. He is having a little bit more left-sided chest discomfort today as compared to yesterday. He has a loose cough. Maintaining O2 saturations in the 90s on 2 L. On room air assessment he was 83%. Blood culture reveals no growth to date. Sputum culture pending. White count 15.7. Hemoglobin 12.3. Urine Legionella antigen not detected. He remains on ceftriaxone and azithromycin along with bronchodilators. He is working well with the incentive spirometer. Toradol for pain control. On 03/23/2018 patient seen in follow-up. Patient apparently developed worsening dyspnea, he was having difficulty walking, he would the desaturate into the 80s with walking even 20 feet. Follow-up chest x-ray has been reviewed showing increasing left-sided pleural effusion, with underlying atelectasis, infiltrate or mass difficult to exclude. Follow-up chest CT showed interval development of a large left-sided pleural effusion with small aerated left lung apex. Is a parapneumonic effusion, with a recent increase in size. Today's labs have been reviewed, showing white blood cell count of 16.2, hemoglobin of 13.2, influenza screen was negative, urine legionella antigen was not detected, patient is on Flomax and Rocephin for antibiotic coverage. In addition patient had some low- grade fevers last night with a temp of 100.8F. So far blood and sputum cultures remain negative, and discussed the case with interventional radiology and we has agreed to put a CT-guided pigtail chest tube catheter for drainage of the left-sided pleural effusion, and this was done this afternoon by Dr. Bates, Pleur-evac has been connected to the pigtail chest tube and there has already been 500 mL of clear yellow pleural fluid which was sent for cultures, and pleural fluid analysis. Cardiac thoracic surgery has been consulted as well for a possibility of lung decortication Objective - Vital Signs Vital signs: Vital Signs Temp 99.3 F 03/23/19 04:30 Pulse 88 03/23/19 12:45 Resp 18 03/23/19 04:30 BP 126/66 03/23/19 04:30 Pulse Ox 94 L 03/23/19 04:30 Intake & Output 03/22/19 03/23/19 03/23/19 18:59 06:59 18:59 Intake Total 1090 Balance 1090 Intake: IV 850 Sodium Chloride 0.9% 1, 800 000 ml @ 100 mls/hr IV . Q10H [facility] Rx#:[id number] cefTRIAXone 1 gm In 50 Sodium Chloride 0.9% 50 ml @ 100 mls/hr IVPB Q24H [facility] Rx#:[id number] Oral 240 Other: Voiding Method Toilet # Voids 1 2 - Exam GENERAL EXAM: Alert, pleasant, 68-year-old white male, comfortable in no apparent distress. HEAD: Normocephalic/atraumatic. EYES: Normal reaction of pupils, equal size. Conjunctiva pink, sclera white. NOSE: Clear with pink turbinates. THROAT: No erythema or exudates. NECK: No masses, no JVD, no thyroid enlargement, no adenopathy. CHEST: No chest wall deformity. Symmetrical expansion. LUNGS: Equal air entry with diminished breath sounds on the left, no rubs ABDOMEN: Soft, nontender. No hepatosplenomegaly, normal bowel sounds, no guarding or rigidity. EXTREMITIES: No clubbing, no edema, no cyanosis, 2+ pulses and upper and lower extremities. MUSCULOSKELETAL: Muscle strength and tone normal. SPINE: No scoliosis or deformity SKIN: No rashes CENTRAL NERVOUS SYSTEM: Alert and oriented -3. No focal deficits, tone is normal in all 4 extremities. PSYCHIATRIC: Alert and oriented -3. Appropriate affect. Intact judgment and insight. - Labs CBC & Chem 7: 03/23/19 07:39 03/21/19 07:45 Labs: Abnormal Lab Results - Last 24 Hours (Table) 03/23/19 Range/Units 07:39 WBC 16.2 H (3.8-10.6) k/uL RBC 4.19 L (4.30-5.90) m/uL Microbiology - Last 24 Hours (Table) 03/20/19 15:30 Gram Stain - Final Sputum Sputum Culture - Final 03/19/19 20:41 Blood Culture - Preliminary Blood No Growth after 72 hours Assessment and Plan Plan: Assessment: 1. acute left lower lobe community acquired pneumonia, likely streptococcal with parapneumonic pleural effusion on the left, with the interval increase in size with resultant hypoxemia and shortness of breath, is post left chest pigtail chest tube placement. 2 acute hypoxic respiratory failure, improving 3 acute febrile illness secondary left lower lobe pneumonia 4 acute leukocytosis secondary to above 5 small left-sided pleural effusion 6 hypertension 7 hyperlipidemia 8 obstructive sleep apnea with an AHI of 9 and the patient was started on CPAP therapy Plan: Continue current antiemetic coverage, Zithromax and Rocephin, will await the results of the pleural fluid cultures, and pleural fluid analysis. Repeat chest x-ray in the morning. CT surgery has been consulted in case of lung decortication is needed. Continue with nebulized bronchodilators, and deep breathing and coughing. I performed a history & physical examination of the patient and discussed their management with my nurse practitioner, Manda Preston. I reviewed the nurse practitioner's note and agree with the documented findings and plan of care. Lung sounds are positive for diminished sounds over left lung. The findings and the impression was discussed with the patient. I attest to the documentation by the nurse practitioner. Time with Patient: Less than 30
--- NOTE | 2019-03-23 15:53 | P.GSCN ---
<Adrianne Lemos - Last Filed: 03/23/19 15:26> History of Present Illness Consult date: 03/23/19 Reason for Consult: Sided parapneumonic effusion, surgical recommendations Requesting physician: Ashwini Snyder History of present illness: This is a 68-year-old gentleman who follows on an outpatient basis with a primary care provider in [facility]. He has a previous medical history of hypertension, hyperlipidemia, newly diagnosed obstructive sleep apnea on home CPAP, previous tobacco dependence, daily EtOH use, and family history of cancer. Apparently he presented to [facility] emergency room on March 19 with complaints of fever and chills that had started as he was driving from [facility] to attend his granddaughter's graduation constitution party, along with cough which had started that morning. He also complained of lower back pain which he described as sharp in nature and constant, he felt unable to get comfortable and rated his pain at a 10 out of 10. Upon presentation to the emergency room chest x-ray was completed demonstrate the left lower lobe infiltrate. Due to his back pain a KUB was also completed demonstrating possible ileus. CAT scan of the chest abdomen and pelvis was completed confir sol a left lower lobe infiltrate with pleural effusion. He was given IV Toradol which relieved his back pain somewhat. He was admitted for community- acquired pneumonia and sepsis, IV Rocephin and Zithromax were initiated, and consultation was placed to pulmonology. Over the course of several days his chest x-rays continued to worsen, his white blood cell count continued to elevate, and chest x-ray this morning demonstrated a significantly increased left-sided pleural effusion which was confirmed on CAT scan of the chest. Interventional radiology was consulted to place pigtail catheter with immediate evacuation of 500 mL serous fluid. This was sent for culture and cytology. Cardiothoracic surgery was consulted for surgical recommendations for decortication. Review of Systems Review of systems was completed and was negative except as noted. - Constitutional Reports chills, Reports fever - Respiratory Respiratory Comment(s): Back pain Reports cough Past Medical History Past Medical History: Hyperlipidemia, Hypertension, Sleep Apnea/CPAP/BIPAP Additional Past Medical History / Comment(s): Pt has sleep apnea, just completed sleep study; has new CPAP History of Any Multi-Drug Resistant Organisms: None Reported Past Surgical History: Appendectomy, Orthopedic Surgery Additional Past Surgical History / Comment(s): left knee surgery 50 years Past Anesthesia/Blood Transfusion Reactions: No Reported Reaction Past Psychological History: No Psychological Hx Reported Smoking Status: Former smoker Past Alcohol Use History: Daily Past Drug Use History: None Reported - Past Family History Father Family Medical History: Cancer Additional Family Medical History / Comment(s): Throat cancer Mother Family Medical History: Liver Disease Medications and Allergies Home Medications Medication Instructions Recorded Confirmed Type Aspirin EC [Ecotrin Low Dose] 81 mg PO DAILY 03/19/19 03/19/19 History Atorvastatin [Lipitor] 40 mg PO DAILY 03/19/19 03/19/19 History Lisinopril 20 mg PO DAILY 03/19/19 03/19/19 History Lisinopril [Zestril] 10 mg PO DAILY 03/19/19 03/19/19 History Multivitamins, Thera [Multivitamin 1 tab PO DAILY 03/19/19 03/19/19 History (formulary)] Allergies Allergy/AdvReac Type Severity Reaction Status Date / Time No Known Allergies Allergy Verified 03/19/19 19:50 Surgical - Exam Vital Signs Temp Pulse Resp BP Pulse Ox 103 F H 129 H 20 115/70 93 L 03/19/19 18:53 03/19/19 18:53 03/19/19 18:53 03/19/19 18:53 03/19/19 18:53 - General Mild distress well developed, well nourished - Eyes PERRL, normal ocular movement - ENT no hearing loss - Neck no masses, no bruits, trachea midline - Respiratory Lungs sounds diminished bilaterally, left greater than right. Respirations even, slightly labored especially after coughing. Currently on 2 L nasal cannula with oxygen saturation 88-91%. No chest wall deformities. No clubbing or cyanosis. Left-sided pleural pigtail drain connected to atrium, on continuous -20 cm wall suction, currently 1400 mL serous drainage present, no air leak present. - Cardiovascular S1, S2 present. Tachycardic but regular rate and rhythm. Palpable peripheral pulses bilaterally. Trace bilateral lower extremity edema present. No calf marin n or tenderness noted. - Abdomen Abdomen: soft, non tender, bowel sounds - Genitourinary Deferred - Rectum Deferred - Integumentary no rash, no growths, no abnormal pigmentation - Neurologic normal coordination, normal sensation - Musculoskeletal normal posture - Psychiatric oriented to time, oriented to person, oriented to place, speech is normal, memory intact Results - Labs 03/23/19 07:39 03/21/19 07:45 Abnormal Lab Results - Last 24 Hours (Table) 03/23/19 Range/Units 07:39 WBC 16.2 H (3.8-10.6) k/uL RBC 4.19 L (4.30-5.90) m/uL Microbiology - Last 24 Hours (Table) 03/20/19 15:30 Gram Stain - Final Sputum Sputum Culture - Final 03/19/19 20:41 Blood Culture - Preliminary Blood No Growth after 72 hours - Imaging Chest x-ray: report reviewed, image reviewed CT scan - abdomen: report reviewed, image reviewed CT scan - chest: report reviewed, image reviewed CT scan - pelvis: report reviewed, image reviewed Assessment and Plan Assessment: 1. Left-sided parapneumonic effusion, status post placement of pigtail catheter 2. Community-acquired pneumonia on admission, currently on Rocephin and Zithromax 3. History of hypertension 4. History of hyperlipidemia 5. Newly diagnosed obstructive sleep apnea on home CPAP 6. Previous tobacco dependence 7. Daily EtOH use Plan: The patient was seen and examined at the bedside. Chart/diagnostics were reviewed. Continue current antibiotic therapy per primary care services. Will continue to monitor output from pigtail catheter, likely will instill alteplase tomorrow. Will discuss the case in detail with Dr. Flores from cardiothoracic surgery and will make further recommendations regarding conservative treatment versus surgical decortication. Wean O2 as tolerated. Increase activity as tolerated. Encourage incentive spirometry use. Medical management per primary care service. More recommendations follow. Thank you Dr. Snyder for this consult. We look forward to working with you in the care of your patient. Time with Patient: Greater than 30 <Augustine Flores - Last Filed: 03/24/19 19:11> Surgical - Exam Vital Signs Temp Pulse Resp BP Pulse Ox 103 F H 129 H 20 115/70 93 L 03/19/19 18:53 03/19/19 18:53 03/19/19 18:53 03/19/19 18:53 03/19/19 18:53 Results - Labs 03/24/19 09:24 03/24/19 09:24 Abnormal Lab Results - Last 24 Hours (Table) 03/24/19 03/24/19 Range/Units 09:24 09:24 WBC 14.8 H (3.8-10.6) k/uL RBC 4.09 L (4.30-5.90) m/uL Hgb 12.7 L (13.0-17.5) gm/dL Hct 38.4 L (39.0-53.0) % Glucose 129 H (74-99) mg/dL Microbiology - Last 24 Hours (Table) 03/23/19 14:05 Gram Stain - Preliminary Pleural Fluid Body Fluid Culture - Preliminary 03/23/19 14:05 Acid Fast Bacilli Smear - Final Pleural Fluid Acid Fast Bacilli Culture - Preliminary 03/19/19 20:41 Blood Culture - Preliminary Blood No Growth after 96 hours 03/23/19 14:05 Anaerobic Culture - Preliminary Pleural Fluid 03/23/19 14:05 Fungal Culture - Preliminary Pleural Fluid Diabetes panel 03/24/19 Range/Units 09:24 Sodium 139 (137-145) mmol/L Potassium 4.6 (3.5-5.1) mmol/L Chloride 107 (98-107) mmol/L Carbon Dioxide 22 (22-30) mmol/L BUN 11 (9-20) mg/dL Creatinine 0.81 (0.66-1.25) mg/dL Glucose 129 H (74-99) mg/dL Calcium 8.8 (8.4-10.2) mg/dL Calcium panel 03/24/19 Range/Units 09:24 Calcium 8.8 (8.4-10.2) mg/dL Pituitary panel 03/24/19 Range/Units 09:24 Sodium 139 (137-145) mmol/L Potassium 4.6 (3.5-5.1) mmol/L Chloride 107 (98-107) mmol/L Carbon Dioxide 22 (22-30) mmol/L BUN 11 (9-20) mg/dL Creatinine 0.81 (0.66-1.25) mg/dL Glucose 129 H (74-99) mg/dL Calcium 8.8 (8.4-10.2) mg/dL Adrenal panel 03/24/19 Range/Units 09:24 Sodium 139 (137-145) mmol/L Potassium 4.6 (3.5-5.1) mmol/L Chloride 107 (98-107) mmol/L Carbon Dioxide 22 (22-30) mmol/L BUN 11 (9-20) mg/dL Creatinine 0.81 (0.66-1.25) mg/dL Glucose 129 H (74-99) mg/dL Calcium 8.8 (8.4-10.2) mg/dL Assessment and Plan Plan: The patient was seen and examined. The history and physical findings were verified. I agree with the above assessment and plan. The patient is a 68-year-old male who presented to the hospital earlier this week with complaints of shortness of breath and left-sided discomfort. He was initially treated for pneumonia with IV antibiotics. His chest CT was relatively clear. 4 days later, the chest CT was repeated and a large left pleural effusion was verified. This was drained by interventional radiology with placement of pigtail catheter. The patient feels better but follow-up imaging studies suggest residual fluid. At this time we will instill alteplase into the pigtail drain. He will likely need follow-up imaging studies. If the fluid collection is not improved, then the patient may benefit from surgical intervention consisting of left VATS versus thoracotomy decortication. All the patient's questions were answered. He seems to understand and agrees with the plan as outlined. We will certainly follow along with you while he remains hospitalized. Continue IV antibiotics for now.
[2019-03-23 16:02] LABS: Appearance,BF Cloudy; Color,BF Yellow
--- NOTE | 2019-03-23 16:06 | P.PN ---
Subjective Progress Note Date: 03/23/19 ( Delayed charting seen 9 am) Principal diagnosis: Shortness of breath Patient is a 5-year-old male past medical history of hypertension, dyslipidemia, and remote tobacco abuse who presented to the emergency department with complaints of back pain, coughing, and thick yellow sputum. In the emergency department he initially underwent a chest x-ray which showed atelec tasis versus pneumonia at the left base. He underwent a KUB which showed scattered air-fluid levels. He then underwent a CT chest/abdomen/pelvis. This demonstrated a left lower lobe consolidation with associated pleural effusion. Abdomen and pelvis was unremarkable. Laboratory analysis showed elevated white blood cell count 13.8. His initial temperature was 103 and then peaked at 104.7. He was started on IV fluids, antibiotics, and arrangements were made for admission for community-acquired pneumonia with sepsis. He was started on Rocephin and Zithromax. Repeat chest x-ray on 03/21 showed progressively worsening small to moderate left pleural effusion. This was followed by chest ultrasound which did not demonstrate significant effusion. Pulmonary was consulted who agreed with continuing Rocephin and Zithromax. Repeat chest x-ray on the morning of 03/23 to worsening pleural effusion. Patient dyspnea worsened. Patient underwent CT of the chest that showed a large left-sided pleural effusion. He subsequently had a pigtail catheter placed. Patient seen and examined at bedside. Back pain is better, still coughing. Dyspnea much more significant last evening and this morning. Frustrated that he is not getting better. Concerned that he could have a more resistant strain of bacteria. Explained to him that sputum culture grew normal respiratory keshawn. Likely not having significant improvement secondary to effusion. Discussed that case will be discussed with Dr. Snyder. Objective - Vital Signs Vital signs: Vital Signs Temp 99.3 F 03/23/19 04:30 Pulse 99 03/23/19 14:12 Resp 18 03/23/19 14:12 BP 146/81 03/23/19 14:12 Pulse Ox 92 L 03/23/19 14:12 Intake & Output 03/22/19 03/23/19 03/23/19 18:59 06:59 18:59 Intake Total 1090 Balance 1090 Intake: IV 850 Sodium Chloride 0.9% 1, 800 000 ml @ 100 mls/hr IV . Q10H [facility] Rx#:[id number] cefTRIAXone 1 gm In 50 Sodium Chloride 0.9% 50 ml @ 100 mls/hr IVPB Q24H [facility] Rx#:[id number] Oral 240 Other: Voiding Method Toilet # Voids 1 2 - Exam General: ill appearing, no distress, appears at stated age Derm: warm, dry Head: atraumatic, normocephalic, symmetric Eyes: EOMI, no lid lag, anicteric sclera Mouth: no lip lesion, mucus membranes moist Cardiovascular: S1S2 reg, no murmur, positive posterior tibial pulse bilateral, Lungs: Absent breath sounds left base, no rhonchi, no rales , no accessory muscle use Abdominal: soft, nontender to palpation, no guarding, no appreciable organomegaly Ext: no gross muscle atrophy, no edema, no contractures Neuro: CN II-XI grossly intact, no focal neuro deficits Psych: Alert, oriented, appropriate affect - Labs CBC & Chem 7: 03/23/19 07:39 03/21/19 07:45 Labs: Abnormal Lab Results - Last 24 Hours (Table) 03/23/19 Range/Units 07:39 WBC 16.2 H (3.8-10.6) k/uL RBC 4.19 L (4.30-5.90) m/uL Microbiology - Last 24 Hours (Table) 03/20/19 15:30 Gram Stain - Final Sputum Sputum Culture - Final 03/19/19 20:41 Blood Culture - Preliminary Blood No Growth after 72 hours Assessment and Plan Assessment: Left lower lobe community-acquired pneumonia with sepsis with associated large l eft-sided pleural effusion status post pigtail catheter insertion - continue with rocephin but increased to 2 g and zithromax - bronchodilators -Pulmonary recs: CT without contrast was completed which showed large left-sided pleural effusion. Pigtail catheter was placed 03/23 -Cardiothoracic surgery recommendations -Pulmonary hygiene, Mucinex -IV fluids completed Acute hypoxic respiratory failure, improving -Continue to wean oxygen as able Hypertension, elevated -Continue with lisinopril but increase to 40 mg -Follow blood pressure Dyslipidemia -Continue statin DVT prophylaxis: Early ambulation, heparin Discussed with: Patient, nursing Anticipated discharge: 3-[address]: Home A total of 25 minutes was spent on the care of this complex patient more than 50% of the time was spent in counseling and care coordination.
[2019-03-23 16:22] LABS: RBC, Body Fluid 1200 /uL
[2019-03-23 16:23] LABS: Nucleated Cells, Body Fluid 1800 /uL
[2019-03-23 16:24] LABS: Mononuclear WBC,Body Fluid 18 %; Polynuclear WBC,Body Fluid 82 %; Total Cells Counted,Body Fluid 100
[2019-03-23 21:00] LABS: Total Protein, Body Fluid 3400 mg/dL
[2019-03-23] MEDS: ACETAMINOPHEN TAB 500 MG TAB PO PRN (21:42)
[2019-03-24] MEDS: IPRATROPIUM-ALBUTEROL 3 ML NEB INHALATION SCH ×6 (01:22→19:17)
[2019-03-24] MEDS ORDERED: ALTEPLASE 10 MG in SODIUM CHLORIDE 0.9% 100 ML IRRIGATION ONE ×2 (08:29→16:45)
[2019-03-24] MEDS: MULTIVITAMINS, THERA 1 EACH TAB PO SCH (08:34)
[2019-03-24] MEDS: guaiFENesin 600 MG TABLET.ER PO SCH ×2 (08:34→21:14)
[2019-03-24] MEDS: ATORVASTATIN 40 MG TAB PO SCH (08:34)
[2019-03-24] MEDS: LISINOPRIL 20 MG TAB PO SCH (08:34)
[2019-03-24] MEDS: ASPIRIN 81 MG PO SCH (08:34)
[2019-03-24] MEDS: HEPARIN SODIUM,PORCINE 5,000 UNIT/ML 1 ML VIAL SQ SCH ×3 (08:34→23:35)
--- NOTE | 2019-03-24 08:34 | XR ---
EXAMINATION TYPE: XR chest 2V DATE OF EXAM: 03/24/2019 COMPARISON: 03/23/2019 HISTORY: 68-year-old male shortness of breath, pneumonia TECHNIQUE: Frontal and lateral views FINDINGS: Left heart margin partially obscured by adjacent pleural parenchymal opacity. Residual moderate left pleural effusion decreased slightly from prior exam. Suggestion of a small air-fluid level at the lef t midlung. Posterior pigtail pleural catheter is present. IMPRESSION: Decreased, but residual moderate sized left pleural effusion with adjacent atelectasis and/or consoli dation. Small amount of air within the pleural space as well given an air-fluid level at the mid lung level. Left-sided pigtail pleural catheter.
[2019-03-24] MEDS: PANTOPRAZOLE 40 MG TABLET PO SCH (08:40)
[2019-03-24 10:18] LABS: HCT 38.4 % (39.0-53.0); HGB 12.7 gm/dL (13.0-17.5); MCH 31.1 pg (25.0-35.0); MCHC 33.2 g/dL (31.0-37.0); MCV 93.9 fL (80.0-100.0); Mean Platelet Volume 8.2; Platelet Count 334 k/uL (150-450); RBC 4.09 m/uL (4.30-5.90); RDW 13.5 % (11.5-15.5); WBC 14.8 k/uL (3.8-10.6)
[2019-03-24 10:19] LABS: African American GFR (CKD) >90 (>60 ml/min/1.73 sqM); Anion Gap 10 mmol/L; Blood Urea Nitrogen 11 mg/dL (9-20); Calcium 8.8 mg/dL (8.4-10.2); Carbon Dioxide 22 mmol/L (22-30); Chloride 107 mmol/L (98-107); Glucose 129 mg/dL (74-99); Magnesium 1.9 mg/dL (1.6-2.3); Potassium 4.6 mmol/L (3.5-5.1); Sodium 139 mmol/L (137-145)
--- NOTE | 2019-03-24 14:55 | P.PN ---
Subjective Progress Note Date: 03/24/19 (delayed charting seen at 0900) Principal diagnosis: Shortness of breath Patient is a 68-year-old male past medical history of hypertension, dyslipidemia, and remote tobacco abuse who presented to the emergency department with complaints of back pain, coughing, and thick yellow sputum. In the emergency department he initially underwent a chest x-ray which showed ate lectasis versus pneumonia at the left base. He underwent a KUB which showed scattered air-fluid levels. He then underwent a CT chest/abdomen/pelvis. This demonstrated a left lower lobe consolidation with associated pleural effusion. Abdomen and pelvis was unremarkable. Laboratory analysis showed elevated white blood cell count 13.8. His initial temperature was 103 and then peaked at 104.7. He was started on IV fluids, antibiotics, and arrangements were made for admission for community-acquired pneumonia with sepsis. He was started on Rocephin and Zithromax. Repeat chest x-ray on 03/21 showed progressively worsening small to moderate left pleural effusion. This was followed by chest u ltrasound which did not demonstrate significant effusion. Pulmonary was consulted who agreed with continuing Rocephin and Zithromax. Repeat chest x-ray on the morning of 03/23 to worsening pleural effusion. Patient dyspnea worsened. Patient underwent CT of the chest that showed a large left-sided pleural effusion. He subsequently had a pigtail catheter placed. Patient seen and examined at bedside. Breathing is better today able to ambulate better knowing her baseline. Still coughing. Still feeling very tired. Pain is improving daily and catheter is not painful. Objective - Vital Signs Vital signs: Vital Signs Temp 99.4 F 03/24/19 09:50 Pulse 90 03/24/19 12:15 Resp 20 03/24/19 12:00 BP 159/85 03/24/19 12:00 Pulse Ox 94 L 03/24/19 12:00 Intake & Output 03/23/19 03/24/19 03/24/19 18:59 06:59 18:59 Intake Total 440 Output Total 1400 300 Balance -1400 440 -300 Intake: Oral 440 Output: Chest Tube Drainage 1400 Chest Tube Left Posterior 1400 Chest Urine 300 Other: Voiding Method Toilet Toilet # Voids 2 1 - Exam General: ill appearing, no distress, appears at stated age Derm: warm, dry Head: atraumatic, normocephalic, symmetric Eyes: EOMI, no lid lag, anicteric sclera Mouth: no lip lesion, mucus membranes moist Cardiovascular: S1S2 reg, no murmur, positive posterior tibial pulse bilateral, Lungs: Decreased breath sounds left base, no rhonchi, no rales , no accessory muscle use Abdominal: soft, nontender to palpation, no guarding, no appreciable organomegaly Ext: no gross muscle atrophy, no edema, no contractures Neuro: CN II-XI grossly intact, no focal neuro deficits Psych: Alert, oriented, appropriate affect - Labs CBC & Chem 7: 03/24/19 09:24 03/24/19 09:24 Labs: Abnormal Lab Results - Last 24 Hours (Table) 03/24/19 03/24/19 Range/Units 09:24 09:24 WBC 14.8 H (3.8-10.6) k/uL RBC 4.09 L (4.30-5.90) m/uL Hgb 12.7 L (13.0-17.5) gm/dL Hct 38.4 L (39.0-53.0) % Glucose 129 H (74-99) mg/dL Microbiology - Last 24 Hours (Table) 03/23/19 14:05 Gram Stain - Preliminary Pleural Fluid Body Fluid Culture - Preliminary 03/23/19 14:05 Acid Fast Bacilli Smear - Final Pleural Fluid Acid Fast Bacilli Culture - Preliminary 03/19/19 20:41 Blood Culture - Preliminary Blood No Growth after 96 hours 03/23/19 14:05 Anaerobic Culture - Preliminary Pleural Fluid 03/23/19 14:05 Fungal Culture - Preliminary Pleural Fluid 03/20/19 15:30 Gram Stain - Final Sputum Sputum Culture - Final Assessment and Plan Assessment: Left lower lobe community-acquired pneumonia with sepsis with associated large left-sided pleural effusion status post pigtail catheter insertion - continue with rocephin but increased to 2 g and zithromax - bronchodilators -Pulmonary recs: CT without contrast was completed which showed large left-sided pleural effusion. Pigtail catheter was placed 03/23 -Cardiothoracic surgery recommendations -Pulmonary hygiene, Mucinex -IV fluids completed Acute hypoxic respiratory failure, improving -Continue to wean oxygen as able Hypertension, elevated -Received first dose of lisinopril 40 mg today and monitor for improvement in blood pressure -Follow blood pressure Dyslipidemia -Continue statin DVT prophylaxis: Early ambulation, heparin Discussed with: Patient, nursing Anticipated discharge: 3-[address]: Home A total of 25 minutes was spent on the care of this complex patient more than 50% of the time was spent in counseling and care coordination.
[2019-03-24] MEDS: HYDROcodone/APAP 5-325MG 1 EACH TAB PO PRN ×2 (16:32→22:19)
--- NOTE | 2019-03-24 16:55 | P.PN ---
Subjective Progress Note Date: 03/24/19 Principal diagnosis: Left-sided parapneumonic effusion, community-acquired pneumonia, history of hypertension, hyperlipidemia, obstructive sleep apnea on home CPAP, remote history of tobacco dependence and history of daily EtOH use. The patient was admitted to the hospital on 03/19/2019 after presenting to the emergency department here at [facility] with complaints of fever and chills that started as he was driving from [facility] to attend his granddaughter's graduation green party. The patient reports traveling here to the [place] area he developed a cough, fever and lower back pain. On presentation to the emergency department a chest x-ray was completed which showed him to have a left lower lobe infiltrate. He also underwent a KUB due to his complaints of lower back pain which demonstrated a possible ileus. For further evaluation a computed tomography scan of his chest, abdomen and pelvis was completed which demonstrated a left lower lobe infiltrate with pleural effusion. His initial lab results showed a WBC count 13.8, Hgb 14.4, BUN 17, creatinine 1.04 and a random glucose 155. Subsequently he was seen by Dr. Snyder from pulmonary medicine and was started on Rocephin and Zithromax for antibiotic coverage. Daily chest x-rays were completed which showed worsening of his left sided pleural effusion which was confirmed on a computed tomography scan of his chest. Due to the increasing size of his left pleural effusion interventional radiology was consulted and a left chest pigtail catheter was placed yesterday with 500 mL of serous colored fluid drained immediately. The pleural fluid cytology and culture results are pending. This morning the patient is sitting to the bedside edge. He is in no acute distress. He reports he has been trying to ambulate in his room and in the hallway but gets too short winded to tolerate even a short walk. His left pleural pigtail catheter remains in place and is connected to low continuous wall suction -20 cm H2O. Continues to drain thin serous colored drainage. 1.4 L of fluid drained in the last 24 hours. No air leak is present. The patient reports that he has been coughing up some yellowish green colored sputum. He is achieving 1500 mL on his incentive spirometry. Oxygen saturations are 94% on room air. He continues to have intermittent fevers with his T-max temperature in the last 24 hours 102.3F. Objective - Vital Signs Vital signs: Vital Signs Temp 99 F 09/05/19 23:00 Pulse 104 H 03/23/19 21:40 Resp 20 03/23/19 21:40 BP 158/90 03/23/19 21:40 Pulse Ox 94 L 03/23/19 21:40 Intake & Output 03/23/19 03/24/19 03/24/19 18:59 06:59 18:59 Intake Total 340 Output Total 1400 Balance -1400 340 Intake: Oral 340 Output: Chest Tube Drainage 1400 Chest Tube Left Posterior 1400 Chest Other: Voiding Method Toilet # Voids 2 1 - Constitutional General appearance: Present: average body habitus, cooperative, no acute distress - Respiratory Details: Lung sounds diminished throughout his left lobes, essentially clear to his right upper lobe. Respirations symmetrical and nonlabored. Oxygen saturation 94% on room air. Achieving 1500 mL on his incentive spirometry. Left pleural pigtail catheter remains in place to low continuous wall suction -20 cm H2O. No air leak is present. Draining thin serous drainage. - Cardiovascular Details: Irregular rhythm with controlled rate. S1 and S2 present, negative for S3, gallop or murmur. No edema present. - Gastrointestinal Gastrointestinal Comment(s): Abdomen is soft, nontender and nondistended. No guarding or rigidity. No organomegaly appreciated. Active bowel sounds present all 4 abdominal quadrants. - Genitourinary Genitourinary Comment(s): Continues to void clear yellow urine. - Integumentary Integumentary Comment(s): Skin is warm and dry. No clubbing or cyanosis is present. No rash or abnormal pigmentation is present. Left chest pigtail catheter dressing is clean, dry and intact. - Neurologic Neurologic Comment(s): No focal deficits. Neurologic: Present: CNII-XII intact - Musculoskeletal Musculoskeletal: Present: gait normal, generalized weakness, strength equal bilaterally - Psychiatric Psychiatric: Present: A&O x's 3, appropriate affect, intact judgment & insight - Allied health notes Allied health notes reviewed: nursing - Labs CBC & Chem 7: 03/23/19 07:39 03/21/19 07:45 Labs: Abnormal Lab Results - Last 24 Hours (Table) 03/23/19 Range/Units 07:39 WBC 16.2 H (3.8-10.6) k/uL RBC 4.19 L (4.30-5.90) m/uL Microbiology - Last 24 Hours (Table) 03/23/19 14:05 Acid Fast Bacilli Smear - Final Pleural Fluid Acid Fast Bacilli Culture - Preliminary 03/23/19 14:05 Gram Stain - Preliminary Pleural Fluid Body Fluid Culture - Preliminary 03/19/19 20:41 Blood Culture - Preliminary Blood No Growth after 96 hours 03/23/19 14:05 Anaerobic Culture - Preliminary Pleural Fluid 03/23/19 14:05 Fungal Culture - Preliminary Pleural Fluid 03/20/19 15:30 Gram Stain - Final Sputum Sputum Culture - Final - Imaging and Cardiology Chest x-ray: image reviewed Assessment and Plan Assessment: 1. Left-sided parapneumonic effusion, status post placement of pigtail catheter 2. Community-acquired pneumonia on admission, currently on Rocephin and Zithromax 3. History of hypertension 4. History of hyperlipidemia 5. Newly diagnosed obstructive sleep apnea on home CPAP 6. Previous tobacco dependence 7. Daily EtOH use Plan: 1. Keep left pigtail catheter to low continuous wall suction -20 cm H2O. Keep accurate I&O. 2. We will instill alteplase 10 mg/100 mL of 0.9% normal saline for pleural irrigation through his left pigtail catheter. 3. Wean oxygen as tolerated, bronchodilator management per pulmonary medicine recommendations. 4. Encourage use of his incentive spirometry every hour while awake. 5. Antibiotic management per pulmonary medicine. 6. Encourage increase activity. Physical and occupational therapy consulted. 7. GI and DVT prophylaxis. 8. Continue to follow his daily labs and chest x-rays. 9. Medical management per primary care service. 10. More recommendations to follow based on patient's clinical course. Time with Patient: Greater than 30
--- NOTE | 2019-03-24 18:08 | P.PN ---
Subjective Progress Note Date: 03/24/19 Principal diagnosis: Acute community acquired left lower lobe pneumonia A pleasant 68-year-old male patient, a nonsmoker without any previous history of lung disease, comes in with pleuritic left-sided chest pain. The patient was admitted to [facility] for a graduation democrat and he felt sick, he was having chills and fever and he was having pleuritic left-sided chest pain which was quite extensive. At that point, he decided to come in to the hospital. His symptoms developed within 24 hours prior to him coming to the ED. No nausea. No vomiting. He was feeling quite weak. No bronchospasm or wheezing. No hemoptysis. Some limited congested cough without any significant sputum production. No exposure to any chemicals or respiratory irritants. Initial CAT scan of the chest showed left lower lobe consolidation with some pleural thickening consistent with pneumonia and the patient was started on a combination of Rocephin and Zithromax. Over the past 24 hours, the patient's pain remains quite active. Today's chest x-ray shows some worsening in the left lower lobe consolidation. There was some effusion as noted on the chest x-ray. Ultrasound of the chest was done and the fluid was small and based on that no marking was done. Collect however, the patient is feeling better. His pain is subsiding 1 is taking [place] and Toradol for pain control. His white cell count is at 15.8. No recurrent pneumonias. No hemoptysis. No history of DVT or pulmonary embolism. The patient is seen today 03/22/2019 in follow-up on the regular medical floor. He is currently sitting up at the bedside. Awake and alert in no acute distress. He is having a little bit more left-sided chest discomfort today as compared to yesterday. He has a loose cough. Maintaining O2 saturations in the 90s on 2 L. On room air assessment he was 83%. Blood culture reveals no growth to date. Sputum culture pending. White count 15.7. Hemoglobin 12.3. Urine Legionella antigen not detected. He remains on ceftriaxone and azithromycin along with bronchodilators. He is working well with the incentive spirometer. Toradol for pain control. On 03/23/2019 patient seen in follow-up. Patient apparently developed worsening dyspnea, he was having difficulty walking, he would the desaturate into the 80s with walking even 20 feet. Follow-up chest x-ray has been reviewed showing increasing left-sided pleural effusion, with underlying atelectasis, infiltrate or mass difficult to exclude. Follow-up chest CT showed interval development of a large left-sided pleural effusion with small aerated left lung apex. Is a parapneumonic effusion, with a recent increase in size. Today's labs have been reviewed, showing white blood cell count of 16.2, hemoglobin of 13.2, influenza screen was negative, urine legionella antigen was not detected, patient is on Flomax and Rocephin for antibiotic coverage. In addition patient had some low- grade fevers last night with a temp of 100.8F. So far blood and sputum cultures remain negative, and discussed the case with interventional radiology and we has agreed to put a CT-guided pigtail chest tube catheter for drainage of the left-sided pleural effusion, and this was done this afternoon by Dr. Bates, Pleur-evac has been connected to the pigtail chest tube and there has already been 500 mL of clear yellow pleural fluid which was sent for cultures, and pleural fluid analysis. Cardiac thoracic surgery has been consulted as well for a possibility of lung decortication On 03/24/2019 patient was seen in follow-up on selective care unit, this morning patient was quite tachycardic, and was having irregular heart rhythm on auscultation, in addition he continues to be febrile, last night his fever was 102.3 Fahrenheit, EKG was ordered, and patient was placed on remote telemetry, however in view of his significant parapneumonic pleural effusion, requiring drainage, and the possibility of arrhythmia patient was transferred to the selective care unit. While on the monitor patient has been in sinus tachycardia, with occasional PACs, no A. fib was captured on the monitor strips, I could not find the EKG that was ordered this morning. Patient has denied any central chest pain, patient has put out additional 1400 cc of pleural drainage initially draining 500 mL after immediate placement of the left-sided pigtail c hest tube catheter. Follow-up chest x-ray today showed decreased but residual moderate-sized left pleural effusion with adjacent atelectasis. Patient is working on incentive spirometer, achieving 1200 on the today, lung sounds reveal diminished breath sounds over left lower lobe, with some crackles. He is on 2 L of oxygen with a pulse ox of 93%, low-grade fever this afternoon, he is hemodynamically stable. Today's labs have been reviewed, white blood cell count is down trending, 14.8, hemoglobin is 12.7, electrodes and renal profile were within normal limits. Influenza screen has been negative, urine legionella antigen has been negative. Fluid LDH was 740, revealing exudative fluid, pl eural fluid cultures are negative. Objective - Vital Signs Vital signs: Vital Signs Temp 99.5 F 03/24/19 16:00 Pulse 103 H 03/24/19 16:00 Resp 24 03/24/19 16:00 BP 148/97 03/24/19 16:00 Pulse Ox 93 L 03/24/19 16:00 Intake & Output 03/23/19 03/24/19 03/24/19 18:59 06:59 18:59 Intake Total 440 Output Total 1400 300 Balance -1400 440 -300 Intake: Oral 440 Output: Chest Tube Drainage 1400 Chest Tube Left Posterior 1400 Chest Urine 300 Other: Voiding Method Toilet Toilet # Voids 2 1 - Exam GENERAL EXAM: Alert, pleasant, 68-year-old white male, comfortable in no apparent distress. HEAD: Normocephalic/atraumatic. EYES: Normal reaction of pupils, equal size. Conjunctiva pink, sclera white. NOSE: Clear with pink turbinates. THROAT: No erythema or exudates. NECK: No masses, no JVD, no thyroid enlargement, no adenopathy. CHEST: No chest wall deformity. Symmetrical expansion. LUNGS: Equal air entry with diminished breath sounds on the left, no rubs ABDOMEN: Soft, nontender. No hepatosplenomegaly, normal bowel sounds, no guarding or rigidity. EXTREMITIES: No clubbing, no edema, no cyanosis, 2+ pulses and upper and lower extremities. MUSCULOSKELETAL: Muscle strength and tone normal. SPINE: No scoliosis or deformity SKIN: No rashes CENTRAL NERVOUS SYSTEM: Alert and oriented -3. No focal deficits, tone is normal in all 4 extremities. PSYCHIATRIC: Alert and oriented -3. Appropriate affect. Intact judgment and insight. - Labs CBC & Chem 7: 03/24/19 09:24 03/24/19 09:24 Labs: Abnormal Lab Results - Last 24 Hours (Table) 03/24/19 03/24/19 Range/Units 09: 09:24 WBC 14.8 H (3.8-10.6) k/uL RBC 4.09 L (4.30-5.90) m/uL Hgb 12.7 L (13.0-17.5) gm/dL Hct 38.4 L (39.0-53.0) % Glucose 129 H (74-99) mg/dL Microbiology - Last 24 Hours (Table) 03/23/19 14:05 Gram Stain - Preliminary Pleural Fluid Body Fluid Culture - Preliminary 03/23/19 14:05 Acid Fast Bacilli Smear - Final Pleural Fluid Acid Fast Bacilli Culture - Preliminary 03/19/19 20:41 Blood Culture - Preliminary Blood No Growth after 96 hours 03/23/19 14:05 Anaerobic Culture - Preliminary Pleural Fluid 03/23/19 14:05 Fungal Culture - Preliminary Pleural Fluid Assessment and Plan Plan: Assessment: 1. acute left lower lobe community acquired pneumonia, likely streptococcal with parapneumonic pleural effusion on the left, with the interval increase in size with resultant hypoxemia and shortness of breath, is post left chest pigtail chest tube placement. On 03/24/2019 patient continues draining yellow clear pleural fluid from the left-sided chest tube pigtail catheter. Cultures are negative, pleural fluid analysis reveals exudative fluid 2 acute hypoxic respiratory failure, improving 3 acute febrile illness secondary left lower lobe pneumonia 4 acute leukocytosis secondary to above 5 small left-sided pleural effusion 6 hypertension 7 hyperlipidemia 8 obstructive sleep apnea with an AHI of 9 and the patient was started on CPAP therapy Plan: Continue current antibiotic coverage, pleural fluid cultures remain negative thus far, patient still has intermittent fevers, with consulted CT surgery, and a second dose of alteplase has been instilled this afternoon. Patient is tolerating ambulation, he is working on incentive spirometer, will continue with bronchodilators, Mucinex. Follow-up chest x-ray tomorrow. I performed a history & physical examination of the patient and discussed their management with my nurse practitioner, Manda Preston. I reviewed the nurse practitioner's note and agree with the documented findings and plan of care. Lung sounds are positive for diminished sounds over left lung. The findings and the impression was discussed with the patient. I attest to the documentation by the nurse practitioner. Time with Patient: Less than 30
[2019-03-24] MEDS: ACETAMINOPHEN TAB 500 MG TAB PO PRN ×2 (18:48→23:35)
[2019-03-24] MEDS: AZITHROMYCIN 500 MG TAB PO SCH (23:35)
[2019-03-25] MEDS: IPRATROPIUM-ALBUTEROL 3 ML NEB INHALATION SCH ×7 (00:49→23:40)
[2019-03-25] MEDS: PANTOPRAZOLE 40 MG TABLET PO SCH (06:22)
[2019-03-25] MEDS ORDERED: ALTEPLASE 10 MG in SODIUM CHLORIDE 0.9% 100 ML IRRIGATION ONE (08:00)
[2019-03-25 08:08] LABS: HCT 41.9 % (39.0-53.0); HGB 13.7 gm/dL (13.0-17.5); MCH 31.3 pg (25.0-35.0); MCHC 32.8 g/dL (31.0-37.0); MCV 95.4 fL (80.0-100.0); Mean Platelet Volume 7.3; Platelet Count 385 k/uL (150-450); RDW 13.6 % (11.5-15.5); WBC 16.2 k/uL (3.8-10.6)
[2019-03-25 08:14] LABS: African American GFR (CKD) >90 (>60 ml/min/1.73 sqM); Anion Gap 9 mmol/L; Blood Urea Nitrogen 12 mg/dL (9-20); Calcium 8.5 mg/dL (8.4-10.2); Carbon Dioxide 26 mmol/L (22-30); Chloride 104 mmol/L (98-107); Glucose 124 mg/dL (74-99); Sodium 139 mmol/L (137-145)
[2019-03-25] MEDS: HYDROcodone/APAP 5-325MG 1 EACH TAB PO PRN (08:16)
[2019-03-25] MEDS: guaiFENesin 600 MG TABLET.ER PO SCH ×2 (08:17→21:23)
[2019-03-25] MEDS: ATORVASTATIN 40 MG TAB PO SCH (08:17)
[2019-03-25] MEDS: MULTIVITAMINS, THERA 1 EACH TAB PO SCH (08:17)
[2019-03-25] MEDS: LISINOPRIL 20 MG TAB PO SCH (08:17)
[2019-03-25] MEDS: ASPIRIN 81 MG PO SCH (08:18)
[2019-03-25] MEDS: HEPARIN SODIUM,PORCINE 5,000 UNIT/ML 1 ML VIAL SQ SCH ×3 (08:18→23:43)
--- NOTE | 2019-03-25 09:24 | XR ---
EXAMINATION TYPE: XR chest 2V DATE OF EXAM: 03/25/2019 COMPARISON: 03/24/2019 INDICATION: Left pleural effusion TECHNIQUE: Frontal and lateral views of the chest are obtained. Patient is rotated towards the right . FINDINGS: The heart size is mildly prominent. The pulmonary vasculature is normal. There is a moderate size left pleural effusion is stable in size. Previous air-fluid level was not we ll visualized. Minimal infiltrate may be developing at the right base.. IMPRESSION: 1. Stable left pleural effusion. Previous air-fluid level within the pleural effusion is not identifi ed. 2. There may be some minimal developing infiltrate at the right base.
[2019-03-25] MEDS ORDERED: VANCOMYCIN IV PER PHARMACY 1 EACH MISC MISCELLANE PRN (09:34)
--- NOTE | 2019-03-25 09:39 | P.PN ---
Subjective Progress Note Date: 03/25/19 Principal diagnosis: Shortness of breath Patient is a 68-year-old male past medical history of hypertension, dyslipidemia, and remote tobacco abuse who presented to the emergency department with complaints of back pain, coughing, and thick yellow sputum. In the emerge ncy department he initially underwent a chest x-ray which showed atelectasis versus pneumonia at the left base. He underwent a KUB which showed scattered air-fluid levels. He then underwent a CT chest/abdomen/pelvis. This demonstrated a left lower lobe consolidation with associated pleural effusion. Abdomen and pelvis was unremarkable. Laboratory analysis showed elevated white blood cell count 13.8. His initial temperature was 103 and then peaked at 104.7. He was started on IV fluids, antibiotics, and arrangements were made for admission for community-acquired pneumonia with sepsis. He was started on Rocephin and Zithromax. Repeat chest x-ray on 03/21 showed progressively worsening small to moderate left pleural effusion. This was followed by chest ultrasound which did not demonstrate significant effusion. Pulmonary was consulted who agreed with continuing Rocephin and Zithromax. Patient dyspnea worsened. Repeat chest x-ray on the morning of 03/23 showed worsening pleural effusion. Patient underwent CT of the chest that showed a large left-sided pleural effusion. He subsequently had a pigtail catheter placed. Still with pleural effusion on chest x-ray on 03/24 and altaplase instilled. Patient seen and examined at bedside. Feeling tired today, still short of breath, non productive cough, pain with coughing, still spiking fevers with T Max 101 overnight. Objective - Vital Signs Vital signs: Vital Signs Temp 99.3 F 03/25/19 08:00 Pulse 97 03/25/19 08:00 Resp 18 03/25/19 08:00 BP 123/79 03/25/19 08:00 Pulse Ox 97 03/25/19 08:00 Intake & Output 03/24/19 03/25/19 03/25/19 18:59 06:59 18:59 Intake Total 200 840 120 Output Total 300 2110 Balance -100 -1270 120 Weight 102.9 kg Intake: Oral 200 840 120 Output: Chest Tube Drainage 1110 Chest Tube Left Posterior 1110 Chest Urine 300 1000 Other: Voiding Method Toilet Urinal # Voids 2 - Exam General: ill appearing, no distress, appears at stated age Derm: warm, dry Head: atraumatic, normocephalic, symmetric Eyes: EOMI, no lid lag, anicteric sclera Mouth: no lip lesion, mucus membranes moist Cardiovascular: S1S2 tachy, no murmur, positive posterior tibial pulse bilateral, Lungs: Decreased breath sounds left base, no rhonchi, no rales , no accessory muscle use Abdominal: soft, nontender to palpation, no guarding, no appreciable organomegaly Ext: no gross muscle atrophy, trace edema, no contractures Neuro: CN II-XI grossly intact, no focal neuro deficits Psych: lethargic, oriented, appropriate affect - Labs CBC & Chem 7: 03/25/19 07:50 03/25/19 07:50 Labs: Abnormal Lab Results - Last 24 Hours (Table) 03/24/19 03/24/19 03/25/19 Range/Units 09:24 09:24 07:50 WBC 14.8 H 16.2 H (3.8-10.6) k/uL RBC 4.09 L (4.30-5.90) m/uL Hgb 12.7 L (13.0-17.5) gm/dL Hct 38.4 L (39.0-53.0) % Glucose 129 H (74-99) mg/dL 03/25/19 Range/Units 07:50 WBC (3.8-10.6) k/uL RBC (4.30-5.90) m/uL Hgb (13.0-17.5) gm/dL Hct (39.0-53.0) % Glucose 124 H (74-99) mg/dL Microbiology - Last 24 Hours (Table) 03/19/19 20:41 Blood Culture - Preliminary Blood No Growth after 120 hours 03/23/19 14:05 Gram Stain - Preliminary Pleural Fluid Body Fluid Culture - Preliminary Assessment and Plan Assessment: Left lower lobe community-acquired pneumonia with sepsis with associated large left-sided pleural effusion status post pigtail catheter insertion - continue with rocephin and zithromax, and vanco - D/w Pulm concerned about continued effusions despite alteplase and CT/ - bronchodilators -Cardiothoracic surgery recommendations -Pulmonary hygiene, Mucinex -IV fluids completed Acute hypoxic respiratory failure, improving -Continue to wean oxygen as able Hypertension, improved -Continue lisinopril 40 mg -Follow blood pressure Dyslipidemia -Continue statin CONNOR - CPAP DVT prophylaxis: Early ambulation, heparin Discussed with: Patient, nursing Anticipated discharge: 3-[address]: Home A total of 25 minutes was spent on the care of this complex patient more than 5 0% of the time was spent in counseling and care coordination.
[2019-03-25] MEDS: VANCOMYCIN 2,000 MG in SODIUM CHLORIDE 0.9% 500 ML 500 ML IVPB SCH ×2 (13:22→23:43)
[2019-03-25] MEDS: KETOROLAC 30 MG/ML 1 ML VIAL IVP SCH ×2 (13:46→17:50)
--- NOTE | 2019-03-25 13:56 | P.PN ---
Subjective Progress Note Date: 03/25/19 Principal diagnosis: Acute community-acquired left lower lobe pneumonia A pleasant 68-year-old male patient, a nonsmoker without any previous history of lung disease, comes in with pleuritic left-sided chest pain. The patient was admitted to [facility] for a graduation alliance party and he felt sick, he was having chills and fever and he was having pleuritic left-sided chest pain which was quite extensive. At that point, he decided to come in to the hospital. His symptoms developed within 24 hours prior to him coming to the ED. No nausea. No vomiting. He was feeling quite weak. No bronchospasm or wheezing. No hemoptysis. Some limited congested cough without any significant sputum production. No exposure to any chemicals or respiratory irritants. Initial CAT scan of the chest showed left lower lobe consolidation with some pleural thickening consistent with pneumonia and the patient was started on a combination of Rocephin and Zithromax. Over the past 24 hours, the patient's pain remains quite active. Today's chest x-ray shows some worsening in the left lower lobe consolidation. There was some effusion as noted on the chest x-ray. Ultrasound of the chest was done and the fluid was small and based on that no marking was done. Collect however, the patient is feeling better. His pain is subsiding 1 is taking Sinai and Toradol for pain control. His white cell count is at 15.8. No recurrent pneumonias. No hemoptysis. No history of DVT or pulmonary embolism. The patient is seen today 03/22/2019 in follow-up on the regular medical floor. He is currently sitting up at the bedside. Awake and alert in no acute distress. He is having a little bit more left-sided chest discomfort today as compared to yesterday. He has a loose cough. Maintaining O2 saturations in the 90s on 2 L. On room air assessment he was 83%. Blood culture reveals no growth to date. Sputum culture pending. White count 15.7. Hemoglobin 12.3. Urine Legionella antigen not detected. He remains on ceftriaxone and azithromycin along with bronchodilators. He is working well with the incentive spirometer. Toradol for pain control. On 03/23/2019 patient seen in follow-up. Patient apparently developed worsening dyspnea, he was having difficulty walking, he would the desaturate into the 80s with walking even 20 feet. Follow-up chest x-ray has been reviewed showing increasing left-sided pleural effusion, with underlying atelectasis, infiltrate or mass difficult to exclude. Follow-up chest CT showed interval development of a large left-sided pleural effusion with small aerated left lung apex. Is a parapneumonic effusion, with a recent increase in size. Today's labs have been reviewed, showing white blood cell count of 16.2, hemoglobin of 13.2, influenza screen was negative, urine legionella antigen was not detected, patient is on Flomax and Rocephin for antibiotic coverage. In addition patient had some low- grade fevers last night with a temp of 100.8F. So far blood and sputum cultures remain negative, and discussed the case with interventional radiology and we has agreed to put a CT-guided pigtail chest tube catheter for drainage of the left-sided pleural effusion, and this was done this afternoon by Dr. Bates, Pleur-evac has been connected to the pigtail chest tube and there has already been 500 mL of clear yellow pleural fluid which was sent for cultures, and pleural fluid analysis. Cardiac thoracic surgery has been consulted as well for a possibility of lung decortication On 03/24/2019 patient was seen in follow-up on selective care unit, this morning patient was quite tachycardic, and was having irregular heart rhythm on auscultation, in addition he continues to be febrile, last night his fever was 102.3 Fahrenheit, EKG was ordered, and patient was placed on remote telemetry, however in view of his significant parapneumonic pleural effusion, requiring drainage, and the possibility of arrhythmia patient was transferred to the selective care unit. While on the monitor patient has been in sinus tachycardia, with occasional PACs, no A. fib was captured on the monitor strips, I could not find the EKG that was ordered this morning. Patient has denied any central chest pain, patient has put out additional 1400 cc of pleural drainage initially draining 500 mL after immediate placement of the left-sided pigtail c hest tube catheter. Follow-up chest x-ray today showed decreased but residual moderate-sized left pleural effusion with adjacent atelectasis. Patient is working on incentive spirometer, achieving 1200 on the today, lung sounds reveal diminished breath sounds over left lower lobe, with some crackles. He is on 2 L of oxygen with a pulse ox of 93%, low-grade fever this afternoon, he is hemodynamically stable. Today's labs have been reviewed, white blood cell count is down trending, 14.8, hemoglobin is 12.7, electrodes and renal profile were within normal limits. Influenza screen has been negative, urine legionella antigen has been negative. Fluid LDH was 740, revealing exudative fluid, pl eural fluid cultures are negative. The patient is seen today 03/25/2019 in follow-up on the selective care unit. He is currently sitting up at the bedside. Awake and alert in no acute distress. Breathing a little easier today as compared to yesterday. He is x- ray still shows stable left pleural effusion. Chest tube remains in place. He is working well with the incentive spirometer. 18 in good O2 saturations in the upper 90s on 2 L/m per nasal cannula. Fluid analysis is pending. Sputum culture no growth. Blood cultures no growth. White count 16.2. Hemoglobin 13.7. Creatinine 0.89. Remains on ceftriaxone and azithromycin. Objective - Vital Signs Vital signs: Vital Signs Temp 97.9 F 03/25/19 12:00 Pulse 84 03/25/19 12:36 Resp 18 03/25/19 12:00 BP 132/83 03/25/19 12:00 Pulse Ox 97 03/25/19 12:00 Intake & Output 03/24/19 03/25/19 03/25/19 18:59 06:59 18:59 Intake Total 200 840 120 Output Total 300 2110 Balance -100 -1270 120 Weight 102.9 kg Intake: Oral 200 840 120 Output: Chest Tube Drainage 1110 Chest Tube Left Posterior 1110 Chest Urine 300 1000 Other: Voiding Method Toilet Urinal # Voids 2 1 - Exam GENERAL EXAM: Alert, active, pleasant 68-year-old gentleman, fairly comfortable in no apparent distress. On 2 L nasal cannula. HEAD: Normocephalic. EYES: Normal reaction of pupils, equal size. NOSE: Clear with pink turbinates. THROAT: No erythema or exudates. NECK: No masses, no JVD. CHEST: No chest wall deformity. Left chest tube remains in place. LUNGS: Equal air entry with few scattered rhonchi, crackles in left posterior base. CVS: S1 and S2 normal with no audible murmur, regular rhythm. ABDOMEN: No hepatosplenomegaly, normal bowel sounds, no guarding or rigidity. SPINE: No scoliosis or deformity SKIN: No rashes CENTRAL NERVOUS SYSTEM: No focal deficits, tone is normal in all 4 extremities. EXTREMITIES: There is no peripheral edema. No clubbing, no cyanosis. Peripheral pulses are intact. - Labs CBC & Chem 7: 03/25/19 07:50 03/25/19 07:50 Labs: Abnormal Lab Results - Last 24 Hours (Table) 03/25/19 03/25/19 Range/Units 07:50 07:50 WBC 16.2 H (3.8-10.6) k/uL Glucose 124 H (74-99) mg/dL Microbiology - Last 24 Hours (Table) 03/23/19 14:05 Gram Stain - Preliminary Pleural Fluid Body Fluid Culture - Preliminary 03/19/19 20:41 Blood Culture - Preliminary Blood No Growth after 120 hours Assessment and Plan Assessment: Impression: 1 acute left lower lobe cleaned acquired pneumonia. Status post left-sided chest tube placement cultures pending. 2 acute hypoxic respiratory failure, improving 3 acute febrile illness secondary left lower lobe pneumonia 4 acute leukocytosis secondary to above 5 small left-sided pleural effusion 6 hypertension 7 hyperlipidemia 8 obstructive sleep apnea with an AHI of 9 and the patient was started on CPAP therapy Plan: The patient was seen and evaluated by Dr. Snyder. We'll continue with the current treatment plan for now. Increase his activity as tolerated. CT services on the case. Alteplase being infused. Repeat a chest x-ray in the a.m. We will continue to follow and make recommendations based on his clinical status. I, the cosigning physician, performed a history & physical examination of the patient. Lungs sounds with scattered rhonchi, crackles in left base. Maintaining good O2 saturations in the 90s on 2 L/m per nasal cannula. I discussed the assessment and plan of care with my nurse practitioner, Bonny Mejia. I attest to the above note as dictated by her.
--- NOTE | 2019-03-25 15:43 | P.PN ---
Subjective Progress Note Date: 03/25/19 Principal diagnosis: Left-sided parapneumonic effusion, community-acquired pneumonia, history of hypertension, hyperlipidemia, obstructive sleep apnea on home CPAP, remote history of tobacco dependence and history of daily EtOH use. The patient was admitted to the hospital on 03/19/2019 after presenting to the emergency department here at [facility] with complaints of fever and chills that started as he was driving from [facility] to attend his granddaughter's graduation alliance party. The patient reports traveling here to the [place] area he developed a cough, fever and lower back pain. On presentation to the emergency department a chest x-ray was completed which showed him to have a left lower lobe infiltrate. He also underwent a KUB due to his complaints of lower back pain which demonstrated a possible ileus. For further evaluation a computed tomography scan of his chest, abdomen and pelvis was completed which demonstrated a left lower lobe infiltrate with pleural effusion. His initial lab results showed a WBC count 13.8, Hgb 14.4, BUN 17, creatinine 1.04 and a random glucose 155. Subsequently he was seen by Dr. Snyder from pulmonary medicine and was started on Rocephin and Zithromax for antibiotic coverage. Daily chest x-rays were completed which showed worsening of his left sided pleural effusion which was confirmed on a computed tomography scan of his chest. Due to the increasing size of his left pleural effusion interventional radiology was consulted and a left chest pigtail catheter was placed yesterday with 500 mL of serous colored fluid drained immediately. The pleural fluid cytology and culture results are pending. This morning the patient is sitting to the bedside edge. He is in no acute distress. He reports he has been ambulate in the hallway this morning and has tolerated it much better than yesterday. His left pleural pigtail catheter remains in place and is connected to low continuous wall suction -20 cm H2O. Continues to drain thin serous colored drainage. 1.1 L of fluid drained in the last 24 hours. No air leak is present. The patient reports that he has been coughing up some yellowish green colored sputum. He is achieving 1250 mL on his incentive spirometry. Oxygen saturations are 97% on room air. He continues to have intermittent fevers with his T-max temperature in the last 24 hours 101F. He continues on Zithromax 500 mg by mouth every 24 hours, Rocephin and vancomycin. Objective - Vital Signs Vital signs: Vital Signs Temp 97.9 F 03/25/19 12:00 Pulse 84 03/25/19 12:36 Resp 18 03/25/19 12:00 BP 132/83 03/25/19 12:00 Pulse Ox 97 03/25/19 12:00 Intake & Output 03/24/19 03/25/19 03/25/19 18:59 06:59 18:59 Intake Total 200 840 120 Output Total 300 2110 Balance -100 -1270 120 Weight 102.9 kg Intake: Oral 200 840 120 Output: Chest Tube Drainage 1110 Chest Tube Left Posterior 1110 Chest Urine 300 1000 Other: Voiding Method Toilet Urinal # Voids 2 1 - Constitutional General appearance: Present: cooperative, no acute distress, obese - Respiratory Details: Lung sounds with few scattered rhonchi throughout, diminished to his left lower lobe. Respirations are symmetrical and nonlabored. Left chest pigtail catheter remains in place to low continuous wall suction -20 cm H2O. 1.1 L of thin serous drainage drained in the last 24 hours. No air leak is present. He is achieving 1250 mL on his incentive spirometry. Oxygen saturation is 97% on room air. - Cardiovascular Details: Regular rhythm and rate. S1 and S2 present, negative for S3, gallop or murmur. No edema present. - Gastrointestinal Gastrointestinal Comment(s): Abdomen is soft, nontender and nondistended. Active bowel sounds present in all 4 abdominal quadrants. No guarding or rigidity. No organomegaly. - Genitourinary Genitourinary Comment(s): Voiding clear enriqueta urine. - Integumentary Integumentary Comment(s): Skin is warm and dry. No clubbing or cyanosis is present. No rash or abnormal pigmentation is present. - Neurologic Neurologic: Present: CNII-XII intact - Musculoskeletal Musculoskeletal: Present: gait normal, generalized weakness, strength equal bilaterally - Psychiatric Psychiatric: Present: A&O x's 3, appropriate affect, intact judgment & insight - Allied health notes Allied health notes reviewed: nursing - Labs CBC & Chem 7: 03/25/19 07:50 03/25/19 07:50 Labs: Abnormal Lab Results - Last 24 Hours (Table) 03/25/19 03/25/19 Range/Units 07:50 07:50 WBC 16.2 H (3.8-10.6) k/uL Glucose 124 H (74-99) mg/dL Microbiology - Last 24 Hours (Table) 03/23/19 14:05 Anaerobic Culture - Preliminary Pleural Fluid 03/23/19 14:05 Gram Stain - Preliminary Pleural Fluid Body Fluid Culture - Preliminary 03/19/19 20:41 Blood Culture - Preliminary Blood No Growth after 120 hours - Imaging and Cardiology Chest x-ray: report reviewed, image reviewed Assessment and Plan Assessment: 1. Left-sided parapneumonic effusion, status post placement of pigtail catheter 2. Community-acquired pneumonia on admission, currently on Rocephin and Zithromax 3. History of hypertension 4. History of hyperlipidemia 5. Newly diagnosed obstructive sleep apnea on home CPAP 6. Previous tobacco dependence 7. Daily EtOH use Plan: 1. Keep left pigtail catheter to low continuous wall suction -20 cm H2O. Keep accurate I&O. 2. We will instill alteplase 10 mg/100 mL of 0.9% normal saline for pleural irrigation through his left pigtail catheter again today. 3. Wean oxygen as tolerated, bronchodilator management per pulmonary medicine recommendations. 4. Encourage use of his incentive spirometry every hour while awake. 5. Antibiotic management per pulmonary medicine. 6. Encourage increase activity. Physical and occupational therapy following. 7. GI and DVT prophylaxis. 8. Continue to follow his daily labs and chest x-rays. 9. Medical management per primary care service. 10. More recommendations to follow based on patient's clinical course. Time with Patient: Greater than 30
[2019-03-25 21:20] LABS: Glucose,Whole Blood 113 mg/dL (75-99)
[2019-03-25] MEDS: ACETAMINOPHEN TAB 500 MG TAB PO PRN (21:20)
[2019-03-25] MEDS: AZITHROMYCIN 500 MG TAB PO SCH (23:43)
[2019-03-26] MEDS: KETOROLAC 30 MG/ML 1 ML VIAL IVP SCH ×5 (01:00→23:30)
[2019-03-26] MEDS: IPRATROPIUM-ALBUTEROL 3 ML NEB INHALATION SCH ×6 (03:51→23:19)
[2019-03-26 06:04] LABS: HCT 36.9 % (39.0-53.0); MCHC 32.5 g/dL (31.0-37.0); MCV 95.4 fL (80.0-100.0); Mean Platelet Volume 6.7; Platelet Count 368 k/uL (150-450); RBC 3.87 m/uL (4.30-5.90); RDW 12.7 % (11.5-15.5); WBC 13.7 k/uL (3.8-10.6)
[2019-03-26 06:13] LABS: Calcium 8.2 mg/dL (8.4-10.2)
[2019-03-26] MEDS: PANTOPRAZOLE 40 MG TABLET PO SCH (06:32)
--- NOTE | 2019-03-26 07:36 | XR ---
EXAMINATION TYPE: XR chest 1V portable DATE OF EXAM: 03/26/2019 COMPARISON: 03/25/2019 HISTORY: Left pleural effusion TECHNIQUE: Single frontal view of the chest is obtained. FINDINGS: There is a large left pleural effusion, increased from the prior. The previously seen inte rnal focus of air is not visualized at this time. Multifocal right-sided atelectasis is seen. Cardiom ediastinal silhouette is obscured. No sizable pneumothorax. Left thoracostomy tube is coiled along th e expected location of the left hemidiaphragm border. IMPRESSION: Enlarging left pleural effusion, large volume. Similar degree of multifocal right-sided subsegmental atelectasis.
[2019-03-26] MEDS: ASPIRIN 81 MG PO SCH (09:13)
[2019-03-26] MEDS: guaiFENesin 600 MG TABLET.ER PO SCH ×2 (09:13→21:30)
[2019-03-26] MEDS: MULTIVITAMINS, THERA 1 EACH TAB PO SCH (09:13)
[2019-03-26] MEDS: LISINOPRIL 20 MG TAB PO SCH (09:13)
[2019-03-26] MEDS: HEPARIN SODIUM,PORCINE 5,000 UNIT/ML 1 ML VIAL SQ SCH ×3 (09:13→23:35)
[2019-03-26] MEDS: ATORVASTATIN 40 MG TAB PO SCH (09:13)
--- NOTE | 2019-03-26 09:52 | P.PN ---
Subjective Progress Note Date: 03/26/19 Principal diagnosis: Shortness of breath Patient is a 68-year-old male past medical history of hypertension, dyslipidemia, and remote tobacco abuse who presented to the emergency department with complaints of back pain, coughing, and thick yellow sputum. In the emerge ncy department he initially underwent a chest x-ray which showed atelectasis versus pneumonia at the left base. He underwent a KUB which showed scattered air-fluid levels. He then underwent a CT chest/abdomen/pelvis. This demonstrated a left lower lobe consolidation with associated pleural effusion. Abdomen and pelvis was unremarkable. Laboratory analysis showed elevated white blood cell count 13.8. His initial temperature was 103 and then peaked at 104.7. He was started on IV fluids, antibiotics, and arrangements were made for admission for community-acquired pneumonia with sepsis. He was started on Rocephin and Zithromax. Repeat chest x-ray on 03/21 showed progressively worsening small to moderate left pleural effusion. This was followed by chest ultrasound which did not demonstrate significant effusion. Pulmonary was consulted who agreed with continuing Rocephin and Zithromax. Patient dyspnea worsened. Repeat chest x-ray on the morning of 03/23 showed worsening pleural effusion. Patient underwent CT of the chest that showed a large left-sided pleural effusion. He subsequently had a pigtail catheter placed. Still with pleural effusion on chest x-ray on 03/24 and altaplase instilled with good results. Altaplase again instilled on 03/25 without return of fluid. Patient seen and examined at bedside. Frustrated that he has pneumonia and is not getting better. Also frustrated that he had the pneumonia shots and then received a pneumonia. We spent an extensive amount of time discussing with the pneumonia shots covering do not cover, and how disabling pneumonia to be. He was also frustrated that we do not know the exact type of bacteria causing his pneumonia. I spent time going over all the testing that has been done to attempt to figure out the exact cause of his pneumonia. Still feeling short of breath, reports that it was extremely painful and instilled alteplase yesterday. Back pain is about the same as it was yesterday. No nausea, vomiting, or diarrhea. Objective - Vital Signs Vital signs: Vital Signs Temp 99.8 F H 03/26/19 08:00 Pulse 85 09/08/19 08:00 Resp 18 03/26/19 08:00 BP 143/77 03/26/19 08:00 Pulse Ox 97 03/26/19 08:00 Intake & Output 03/25/19 03/26/19 03/26/19 18:59 06:59 18:59 Intake Total 582 240 Output Total 455 606 6841 Balance 462 -500 -790 Weight 104.5 kg Intake: Oral 582 240 Output: Chest Tube Drainage 120 880 Chest Tube Left Posterior 120 880 Chest Urine 500 150 Other: Voiding Method Urinal # Voids 2 1 - Exam General: ill appearing, no distress, appears at stated age, sunken eyes, dark discoloration under eyes Derm: warm, dry Head: atraumatic, normocephalic, symmetric Eyes: EOMI, no lid lag, anicteric sclera Mouth: no lip lesion, mucus membranes moist Cardiovascular: S1S2 tachy, no murmur, positive posterior tibial pulse bilateral, Lungs: Decreased breath sounds left base, no rhonchi, no rales , no accessory muscle use Abdominal: soft, nontender to palpation, no guarding, no appreciable organomegaly Ext: no gross muscle atrophy, trace edema, no contractures Neuro: CN II-XI grossly intact, no focal neuro deficits Psych: Alert, oriented, appropriate affect - Labs CBC & Chem 7: 03/26/19 05:44 03/26/19 05:44 Labs: Abnormal Lab Results - Last 24 Hours (Table) 03/25/19 03/26/19 03/26/19 Range/Units 21:19 05:44 05:44 WBC 13.7 H (3.8-10.6) k/uL RBC 3.87 L (4.30-5.90) m/uL Hgb 12.0 L (13.0-17.5) gm/dL Hct 36.9 L (39.0-53.0) % Glucose 107 H (74-99) mg/dL POC Glucose (mg/dL) 113 H (75-99) mg/dL Calcium 8.2 L (8.4-10.2) mg/dL Microbiology - Last 24 Hours (Table) 03/19/19 20:41 Blood Culture - Final Blood No Growth after 144 hours 03/23/19 14:05 Anaerobic Culture - Preliminary Pleural Fluid 03/23/19 14:05 Gram Stain - Preliminary Pleural Fluid Body Fluid Culture - Preliminary Assessment and Plan Assessment: Left lower lobe community-acquired pneumonia with sepsis with associated large left-sided pleural effusion status post pigtail catheter insertion - possible VATS on Wednesday or Wednesday - continue with rocephin and zithromax and vanco -Pulmonary recs - bronchodilators -Cardiothoracic surgery recommendations -Pulmonary hygiene, Mucinex -IV fluids completed Acute hypoxic respiratory failure, improving -Continue to wean oxygen as able Hypertension, improved -Continue lisinopril 40 mg -Follow blood pressure Dyslipidemia -Continue statin CONNOR - CPAP DVT prophylaxis: Early ambulation, heparin Discussed with: Patient, nursing Anticipated discharge: 3-[address]: Home A total of 25 minutes was spent on the care of this complex patient more than 50% of the time was spent in counseling and care coordination.
[2019-03-26] MEDS ORDERED: ALTEPLASE 10 MG in SODIUM CHLORIDE 0.9% 100 ML IRRIGATION ONE (10:11)
[2019-03-26] MEDS: VANCOMYCIN 2,000 MG in SODIUM CHLORIDE 0.9% 500 ML 500 ML IVPB SCH ×2 (12:17→22:30)
--- NOTE | 2019-03-26 13:08 | P.PN ---
Subjective Progress Note Date: 03/26/19 A pleasant 68-year-old male patient, a nonsmoker without any previous history of lung disease, comes in with pleuritic left-sided chest pain. The patient was admitted to [facility] for a graduation alliance party and he felt sick, he was having chills and fever and he was having pleuritic left-sided chest pain which was quite extensive. At that point, he decided to come in to the hospital. His symptoms developed within 24 hours prior to him coming to the ED. No nausea. No vomiting. He was feeling quite weak. No bronchospasm or wheezing. No hemoptysis. Some limited congested cough without any significant sputum production. No exposure to any chemicals or respiratory irritants. Initial CAT scan of the chest showed left lower lobe consolidation with some pleural thickening consistent with pneumonia and the patient was started on a combination of Rocephin and Zithromax. Over the past 24 hours, the patient's pain remains quite active. Today's chest x-ray shows some worsening in the left lower lobe consolidation. There was some effusion as noted on the chest x-ray. Ultrasound of the chest was done and the fluid was small and based on that no marking was done. Collect however, the patient is feeling better. His pain is subsiding 1 is taking Bacova and Toradol for pain control. His white cell count is at 15.8. No recurrent pneumonias. No hemoptysis. No history of DVT or pul monary embolism. The patient is seen today 03/22/2019 in follow-up on the regular medical floor. He is currently sitting up at the bedside. Awake and alert in no acute distress. He is having a little bit more left-sided chest discomfort today as compared to yesterday. He has a loose cough. Maintaining O2 saturations in the 90s on 2 L. On room air assessment he was 83%. Blood culture reveals no growth to date. Sputum culture pending. White count 15.7. Hemoglobin 12.3. Urine Legionella antigen not detected. He remains on ceftriaxone and azithromycin along with bronchodilators. He is working well with the incentive spirometer. Toradol for pain control. On 03/23/2019 patient seen in follow-up. Patient apparently developed worsening dyspnea, he was having difficulty walking, he would the desaturate into the 80s with walking even 20 feet. Follow-up chest x-ray has been reviewed showing increasing left-sided pleural effusion, with underlying atelectasis, infiltrate or mass difficult to exclude. Follow-up chest CT showed interval development of a large left-sided pleural effusion with small aerated left lung apex. Is a parapneumonic effusion, with a recent increase in size. Today's labs have been reviewed, showing white blood cell count of 16.2, hemoglobin of 13.2, influenza screen was negative, urine legionella antigen was not detected, patient is on Flomax and Rocephin for antibiotic coverage. In addition patient had some low- grade fevers last night with a temp of 100.8F. So far blood and sputum cultures remain negative, and discussed the case with interventional radiology and we has agreed to put a CT-guided pigtail chest tube catheter for drainage of the left-sided pleural effusion, and this was done this afternoon by Dr. Bates, Pleur-evac has been connected to the pigtail chest tube and there has already been 500 mL of clear yellow pleural fluid which was sent for cultures, and pleural fluid analysis. Cardiac thoracic surgery has been consulted as well for a possibility of lung decortication On 03/24/2019 patient was seen in follow-up on selective care unit, this morning patient was quite tachycardic, and was having irregular heart rhythm on auscultation, in addition he continues to be febrile, last night his fever was 102.3 Fahrenheit, EKG was ordered, and patient was placed on remote telemetry, however in view of his significant parapneumonic pleural effusion, requiring drainage, and the possibility of arrhythmia patient was transferred to the selective care unit. While on the monitor patient has been in sinus tachycardia, with occasional PACs, no A. fib was captured on the monitor strips, I could not find the EKG that was ordered this morning. Patient has denied any central chest pain, patient has put out additional 1400 cc of pleural drainage initially draining 500 mL after immediate placement of the left-sided pigtail chest tube catheter. Follow-up chest x-ray today showed decreased but residual moderate-sized left pleural effusion with adjacent atelectasis. Patient is working on incentive spirometer, achieving 1200 on the today, lung sounds reveal diminished breath sounds over left lower lobe, with some crackles. He is on 2 L of oxygen with a pulse ox of 93%, low-grade fever this afternoon, he is hemodyna mically stable. Today's labs have been reviewed, white blood cell count is down trending, 14.8, hemoglobin is 12.7, electrodes and renal profile were within normal limits. Influenza screen has been negative, urine legionella antigen has been negative. Fluid LDH was 740, revealing exudative fluid, pleural fluid cultures are negative. The patient is seen today 03/25/2019 in follow-up on the selective care unit. He is currently sitting up at the bedside. Awake and alert in no acute distress. Breathing a little easier today as compared to yesterday. He is x- ray still shows stable left pleural effusion. Chest tube remains in place. He is working well with the incentive spirometer. 18 in good O2 saturations in the upper 90s on 2 L/m per nasal cannula. Fluid analysis is pending. Sputum culture no growth. Blood cultures no growth. White count 16.2. Hemoglobin 13.7. Creatinine 0.89. Remains on ceftriaxone and azithromycin. On 03/26/2019 the patient is still struggling with his breathing. He has a parapneumonic left-sided pleural effusion which is quite complicated. He has a pigtail catheter in place. He is receiving daily TPA. Following the administration of TPA yesterday the patient did not have much drainage. There were supplied that earlier this morning the drainage picked up and he put out approximately 1.1 L. Nevertheless, the chest x-ray still showing significant opacification of the left lung. He is still having intermittent fever. He is on accommodation Rocephin and Zithromax and vancomycin. Unfortunately he is still struggling with his breathing and is having some discomfort along his left chest area pulling approximately 1500 on his incentive spirometer. I have discussed this case with a thoracic surgeon and the patient is going to be consi dered for video-assisted thoracoscopy and chest tube insertion/possible decortication in a.m. His white cell count is still elevated at 13.7. Negative cultures. No nausea. No vomiting. Still on 2 L about 2 by nasal cannula. Objective - Vital Signs Vital signs: Vital Signs Temp 99.8 F H 03/26/19 08:00 Pulse 86 03/26/19 12:09 Resp 18 03/26/19 08:00 BP 143/77 03/26/19 08:00 Pulse Ox 97 03/26/19 08:00 Intake & Output 03/25/19 03/26/19 03/26/19 18:59 06:59 18:59 Intake Total 582 240 Output Total 572 890 7054 Balance 462 -500 -790 Weight 104.5 kg Intake: Oral 582 240 Output: Chest Tube Drainage 120 880 Chest Tube Left Posterior 120 880 Chest Urine 500 150 Other: Voiding Method Urinal # Voids 2 1 - Exam GENERAL EXAM: Alert, active, pleasant 68-year-old gentleman, fairly comfortable in no apparent distress. On 2 L nasal cannula. HEAD: Normocephalic. EYES: Normal reaction of pupils, equal size. NOSE: Clear with pink turbinates. THROAT: No erythema or exudates. NECK: No masses, no JVD. CHEST: No chest wall deformity. Left chest tube remains in place. LUNGS: Equal air entry with few scattered rhonchi, crackles in left posterior base. The patient has a left-sided pigtail catheter in place which is connected to Pleur-evac. Output over the past 24 hours has been 1.1 L. He is receiving daily TPA infusions through the pleural cavity/pigtail catheter. CVS: S1 and S2 normal with no audible murmur, regular rhythm. ABDOMEN: No hepatosplenomegaly, normal bowel sounds, no guarding or rigidity. SPINE: No scoliosis or deformity SKIN: No rashes CENTRAL NERVOUS SYSTEM: No focal deficits, tone is normal in all 4 extremities. EXTREMITIES: There is no peripheral edema. No clubbing, no cyanosis. Peripheral pulses are intact. - Labs CBC & Chem 7: 03/26/19 05:44 03/26/19 05:44 Labs: Abnormal Lab Results - Last 24 Hours (Table) 03/25/19 03/26/19 03/26/19 Range/Units 21:19 05:44 05:44 WBC 13.7 H (3.8-10.6) k/uL RBC 3.87 L (4.30-5.90) m/uL Hgb 12.0 L (13.0-17.5) gm/dL Hct 36.9 L (39.0-53.0) % Glucose 107 H (74-99) mg/dL POC Glucose (mg/dL) 113 H (75-99) mg/dL Calcium 8.2 L (8.4-10.2) mg/dL Microbiology - Last 24 Hours (Table) 03/23/19 14:05 Gram Stain - Preliminary Pleural Fluid Body Fluid Culture - Preliminary 03/19/19 20:41 Blood Culture - Final Blood No Growth after 144 hours 03/23/19 14:05 Anaerobic Culture - Preliminary Pleural Fluid Assessment and Plan Plan: 1 acute left lower lobe community-acquired pneumonia complicated by a parapneumonic effusion, complicated, requiring a PICC the catheterization with daily 2. Administration with suboptimal results in terms of evacuating the left-sided pleural effusion. The patient continues to have opacification, loculations and the patient will benefit from a thoracoscopic decortication. The patient will be taken to the operating room. Discussed the case with Dr. Marcelo Taylor. He remains quite symptomatic. Still on 2 L of oxygen by nasal cannula. 2 acute hypoxic respiratory failure, improving 3 acute febrile illness secondary left lower lobe pneumonia 4 acute leukocytosis secondary to above 5 small left-sided pleural effusion 6 hypertension 7 hyperlipidemia 8 obstructive sleep apnea with an AHI of 9 and the patient was started on CPAP therapy Plan Continue the current antibiotic regimen. Daily TPA another dose of tachypnea will be administered through the pigtail catheter. Continue vancomycin and Rocephin and Zithromax. Cultures of been all negative. We're going to proceed with a thoracoscopy and thoracoscopic decortication of the left lung with cecal chest tube insertion. The patient is in need for this procedure. His recovery has been quite low due to extensive pneumonia and significant parapneumonic effusions and loculations noted on his left chest following the pneumonia. Case was discussed with the surgery. Case was discussed with the patient.
--- NOTE | 2019-03-26 13:58 | P.PN ---
Subjective Progress Note Date: 03/26/19 Principal diagnosis: Left-sided parapneumonic effusion, community-acquired pneumonia, history of hypertension, hyperlipidemia, obstructive sleep apnea on home CPAP, remote history of tobacco dependence and history of daily EtOH use. The patient was admitted to the hospital on 03/19/2019 after presenting to the emergency department here at [facility] with complaints of fever and chills that started as he was driving from [facility] to attend his granddaughter's graduation republican. The patient reports traveling here to the [place] area he developed a cough, fever and lower back pain. On presentation to the emergency department a chest x-ray was completed which showed him to have a left lower lobe infiltrate. He also underwent a KUB due to his complaints of lower back pain which demonstrated a possible ileus. For further evaluation a computed tomography scan of his chest, abdomen and pelvis was completed which demonstrated a left lower lobe infiltrate with pleural effusion. His initial lab results showed a WBC count 13.8, Hgb 14.4, BUN 17, creatinine 1.04 and a random glucose 155. Subsequently he was seen by Dr. Snyder from pulmonary medicine and was started on Rocephin and Zithromax for antibiotic coverage. Daily chest x-rays were completed which showed worsening of his left sided pleural effusion which was confirmed on a computed tomography scan of his chest. Due to the increasing size of his left pleural effusion interventional radiology was consulted and a left chest pigtail catheter was placed yesterday with 500 mL of serous colored fluid drained immediately. The pleural fluid cytology and culture results are pending. This morning the patient is sitting to the bedside edge. He is in no acute distress. He reports he has been ambulate in the hallway this morning and has tolerated well. His left pleural pigtail catheter remains in place and is connected to low continuous wall suction -20 cm H2O. Continues to drain thin serous colored drainage. 1.0 L of thin serosanguineous fluid drained in the last 24 hours. Intermittent air leak is present. The patient reports that he has continues to cough up some green thick sputum. He is achieving 1250 to 1500 mL on his incentive spirometry. Oxygen saturations are 97% on 2 L nasal cannula. T-max temperature in the last 24 hours 99.9 F. He continues on Zith romax 500 mg by mouth every 24 hours, Rocephin and vancomycin. Dr. Taylor evaluated the patient this morning and the patient is tentatively scheduled for a left VATS possible thoracotomy with decortication tomorrow 03/27/2019. Risks and benefits of the surgery were discussed with the patient by Dr. Taylor and the patient is wishing to proceed with the surgical procedure knowing the risks and benefits. His laboratory results this morning show a WBC count of 13.7, hemoglobin 12.0, and hematocrit 36.9. Objective - Vital Signs Vital signs: Vital Signs Temp 98.7 F 03/26/19 12:00 Pulse 86 03/26/19 12:09 Resp 16 03/26/19 12:00 BP 120/72 03/26/19 12:00 Pulse Ox 88 L 03/26/19 12:00 Intake & Output 03/25/19 03/26/19 03/26/19 18:59 06:59 18:59 Intake Total 582 240 Output Total 143 078 2773 Balance 462 -500 -790 Weight 104.5 kg Intake: Oral 582 240 Output: Chest Tube Drainage 120 880 Chest Tube Left Posterior 120 880 Chest Urine 500 150 Other: Voiding Method Urinal # Voids 2 1 - Constitutional General appearance: Present: cooperative, no acute distress, obese - Respiratory Details: Lung sounds diminished to his left lobes, essentially clear to his right lobes. No wheezing, rhonchi or crackles. Respirations are symmetrical and nonlabored. Oxygen saturation is 97% on 2 L nasal cannula. Left pigtail pleural pigtail catheter in place and connected to low continuous wall suction -20 cm H2O. 1 L of thin serosanguineous drainage over the last 24 hours. Intermittent air leak is present. - Cardiovascular Details: Regular rhythm and rate. S1 and S2 present, negative for S3, gallop or murmur. - Gastrointestinal Gastrointestinal Comment(s): Abdomen is soft, nontender and nondistended. Active bowel sounds present in all 4 abdominal quadrants. No guarding or rigidity. No organomegaly. - Genitourinary Genitourinary Comment(s): Voiding clear enriqueta urine. - Integumentary Integumentary Comment(s): Skin is warm and dry. No clubbing or cyanosis is present. No rash or abnormal pigmentation is present. Left pigtail catheter dressing clean, dry and intact. - Neurologic Neurologic Comment(s): no focal deficits. Neurologic: Present: CNII-XII intact - Psychiatric Psychiatric: Present: A&O x's 3, appropriate affect, intact judgment & insight - Allied health notes Allied health notes reviewed: nursing - Labs CBC & Chem 7: 03/26/19 05:44 03/26/19 05:44 Labs: Abnormal Lab Results - Last 24 Hours (Table) 03/25/19 03/26/19 03/26/19 Range/Units 21:19 05:44 05:44 WBC 13.7 H (3.8-10.6) k/uL RBC 3.87 L (4.30-5.90) m/uL Hgb 12.0 L (13.0-17.5) gm/dL Hct 36.9 L (39.0-53.0) % Glucose 107 H (74-99) mg/dL POC Glucose (mg/dL) 113 H (75-99) mg/dL Calcium 8.2 L (8.4-10.2) mg/dL Microbiology - Last 24 Hours (Table) 03/23/19 14:05 Gram Stain - Preliminary Pleural Fluid Body Fluid Culture - Preliminary 03/19/19 20:41 Blood Culture - Final Blood No Growth after 144 hours 03/23/19 14:05 Anaerobic Culture - Preliminary Pleural Fluid - Imaging and Cardiology Chest x-ray: report reviewed, image reviewed Assessment and Plan Assessment: 1. Left-sided parapneumonic effusion, status post placement of pigtail catheter 2. Community-acquired pneumonia on admission, currently on Rocephin and Zithromax 3. History of hypertension 4. History of hyperlipidemia 5. Newly diagnosed obstructive sleep apnea on home CPAP 6. Previous tobacco dependence 7. Daily EtOH use Plan: 1. Keep left pigtail catheter to low continuous wall suction -20 cm H2O. Keep accurate I&O. 2. We will instill alteplase 10 mg/100 mL of 0.9% normal saline for pleural irrigation through his left pigtail catheter again today. This will make up a total of 3 doses to date. 3. Wean oxygen as tolerated, bronchodilator management per pulmonary medicine recommendations. 4. Encourage use of his incentive spirometry every hour while awake. 5. Antibiotic management per pulmonary medicine. 6. Encourage increase activity. Physical and occupational therapy following. 7. GI and DVT prophylaxis. 8. Continue to follow his daily labs and chest x-rays. 9. Medical management per primary care service. 10. Nothing by mouth after midnight. The patient is scheduled for a left VATS possible thoracotomy with decortication tomorrow 03/27/2019. 11. More recommendations to follow based on patient's clinical course. Time with Patient: Greater than 30
[2019-03-26] MEDS ORDERED: TEMAZEPAM 7.5 MG CAP PO PRN (18:24)
[2019-03-26] MEDS: AZITHROMYCIN 500 MG TAB PO SCH (23:30)
[2019-03-27] MEDS: MELATONIN 5 MG TABLET PO PRN ×2 (00:44→23:26)
[2019-03-27] MEDS: IPRATROPIUM-ALBUTEROL 3 ML NEB INHALATION SCH ×6 (03:14→22:57)
[2019-03-27] MEDS: KETOROLAC 30 MG/ML 1 ML VIAL IVP SCH ×4 (06:35→23:17)
[2019-03-27] MEDS: PANTOPRAZOLE 40 MG TABLET PO SCH (06:35)
--- NOTE | 2019-03-27 08:48 | XR ---
EXAMINATION TYPE: XR chest 1V portable DATE OF EXAM: 03/27/2019 HISTORY: Shortness of breath. COMPARISON: March 26, 2019 TECHNIQUE: Single view of the chest is submitted. FINDINGS: Demonstrated are scattered senescent parenchymal change. Significant diminution in left-sided pleural effusion which continues to persist. Left basilar atelec tasis or associated infiltrate difficult to exclude. Left basilar pleural catheter again redemonstrat ed. No evidence for pneumothorax. The heart is stable. Hilar and mediastinal structures are within normal limits. Degenerative changes are seen of the dorsal spine. IMPRESSION: 1. Significant diminution in left-sided pleural effusion which continues to persist. Left basilar at electasis or associated infiltrate difficult to exclude. Left basilar pleural catheter again redemons trated.
[2019-03-27] MEDS ORDERED: VANCOMYCIN TROUGH DUE 1 EACH MISC MISCELLANE ONE (09:00)
[2019-03-27] MEDS: HEPARIN SODIUM,PORCINE 5,000 UNIT/ML 1 ML VIAL SQ SCH ×3 (09:11→23:18)
[2019-03-27 09:13] LABS: HGB 12.4 gm/dL (13.0-17.5); MCH 30.8 pg (25.0-35.0); MCHC 32.5 g/dL (31.0-37.0); MCV 94.6 fL (80.0-100.0); Mean Platelet Volume 7.1; Platelet Count 466 k/uL (150-450); RBC 4.02 m/uL (4.30-5.90); RDW 13.3 % (11.5-15.5); WBC 11.8 k/uL (3.8-10.6)
[2019-03-27] MEDS: VANCOMYCIN 2,000 MG in SODIUM CHLORIDE 0.9% 500 ML 500 ML IVPB SCH ×2 (09:53→20:41)
--- NOTE | 2019-03-27 10:14 | P.PN ---
Subjective Progress Note Date: 03/27/19 Principal diagnosis: Shortness of breath Patient is a 68-year-old male past medical history of hypertension, dyslipidemia, and remote tobacco abuse who presented to the emergency department with complaints of back pain, coughing, and thick yellow sputum. In the emerge ncy department he initially underwent a chest x-ray which showed atelectasis versus pneumonia at the left base. He underwent a KUB which showed scattered air-fluid levels. He then underwent a CT chest/abdomen/pelvis. This demonstrated a left lower lobe consolidation with associated pleural effusion. Abdomen and pelvis was unremarkable. Laboratory analysis showed elevated white blood cell count 13.8. His initial temperature was 103 and then peaked at 104.7. He was started on IV fluids, antibiotics, and arrangements were made for admission for community-acquired pneumonia with sepsis. He was started on Rocephin and Zithromax. Repeat chest x-ray on 03/21 showed progressively worsening small to moderate left pleural effusion. This was followed by chest ultrasound which did not demonstrate significant effusion. Pulmonary was consulted who agreed with continuing Rocephin and Zithromax. Patient dyspnea worsened. Repeat chest x-ray on the morning of 03/23 showed worsening pleural effusion. Patient underwent CT of the chest that showed a large left-sided pleural effusion. He subsequently had a pigtail catheter placed. Still with pleural effusion on chest x-ray on 03/24 and altaplase instilled with good results. Altaplase again instilled on 03/25 without return of fluid initially but then had good return of fluid later that night. Patient seen and examined at bedside. C/O pain that is less than before the chest tubes, still short of breath, no chest pain, no nausea. Still struggling with constipation. Objective - Vital Signs Vital signs: Vital Signs Temp 98.4 F 03/27/19 07:00 Pulse 112 H 03/27/19 08:16 Resp 18 03/27/19 07:00 BP 144/78 03/27/19 07:00 Pulse Ox 95 03/27/19 07:00 Intake & Output 03/26/19 03/27/19 03/27/19 18:59 06:59 18:59 Intake Total 720 240 Output Total 1030 1600 Balance -310 -1360 Intake: Oral 720 240 Output: Chest Tube Drainage 880 1200 Chest Tube Left Posterior 880 1200 Chest Urine 150 400 Other: Voiding Method Urinal # Voids 1 - Exam General: ill appearing, no distress, appears at stated age, sunken eyes Derm: warm, dry Head: atraumatic, normocephalic, symmetric Eyes: EOMI, no lid lag, anicteric sclera Mouth: no lip lesion, mucus membranes moist Cardiovascular: S1S2 tachy, no murmur, positive posterior tibial pulse bilateral, Lungs: Decreased breath sounds left base, no rhonchi, no rales , no accessory muscle use Abdominal: soft, nontender to palpation, no guarding, no appreciable organomegaly Ext: no gross muscle atrophy, trace edema, no contractures Neuro: CN II-XI grossly intact, no focal neuro deficits Psych: Alert, oriented, appropriate affect - Labs CBC & Chem 7: 03/27/19 08:46 03/26/19 05:44 Labs: Abnormal Lab Results - Last 24 Hours (Table) 03/27/19 Range/Units 08:46 WBC 11.8 H (3.8-10.6) k/uL RBC 4.02 L (4.30-5.90) m/uL Hgb 12.4 L (13.0-17.5) gm/dL Hct 38.0 L (39.0-53.0) % Plt Count 466 H (150-450) k/uL Microbiology - Last 24 Hours (Table) 03/23/19 14:05 Anaerobic Culture - Final Pleural Fluid 03/23/19 14:05 Gram Stain - Preliminary Pleural Fluid Body Fluid Culture - Preliminary Assessment and Plan Assessment: Left lower lobe community-acquired pneumonia with sepsis with associated large left-sided pleural effusion status post pigtail catheter insertion - Likely VATS today - continue with rocephin and zithromax and vanco -Pulmonary recs - Aerobic and Anerobic cultures negative - bronchodilators -Cardiothoracic surgery recommendations: likely VATS today -Pulmonary hygiene, Mucinex -IV fluids completed Acute hypoxic respiratory failure, improving -Continue to wean oxygen as able Hypertension, improved -Continue lisinopril 40 mg -Follow blood pressure Dyslipidemia -Continue statin CONNOR - CPAP - Await AM CR. DVT prophylaxis: Early ambulation, heparin Discussed with: Patient, nursing, Jl Solomon NP Anticipated discharge: 3-[address]: Home vs A total of 25 minutes was spent on the care of this complex patient more than 50% of the time was spent in counseling and care coordination.
--- NOTE | 2019-03-27 10:44 | P.PN ---
Subjective Progress Note Date: 03/27/19 Principal diagnosis: Left-sided parapneumonic effusion, community-acquired pneumonia, history of hypertension, hyperlipidemia, obstructive sleep apnea on home CPAP, remote history of tobacco dependence and history of daily EtOH use. The patient was admitted to the hospital on 03/19/2019 after presenting to the emergency department here at [facility] with complaints of fever and chills that started as he was driving from [facility] to attend his granddaughter's graduation republican. The patient reports traveling here to the [place] area he developed a cough, fever and lower back pain. On presentation to the emergency department a chest x-ray was completed which showed him to have a left lower lobe infiltrate. He also underwent a KUB due to his complaints of lower back pain which demonstrated a possible ileus. For further evaluation a computed tomography scan of his chest, abdomen and pelvis was completed which demonstrated a left lower lobe infiltrate with pleural effusion. His initial lab results showed a WBC count 13.8, Hgb 14.4, BUN 17, creatinine 1.04 and a random glucose 155. Subsequently he was seen by Dr. Snyder from pulmonary medicine and was started on Rocephin and Zithromax for antibiotic coverage. Daily chest x-rays were completed which showed worsening of his left sided pleural effusion which was confirmed on a computed tomography scan of his chest. Due to the increasing size of his left pleural effusion interventional radiology was consulted and a left chest pigtail catheter was placed yesterday with 500 mL of serous colored fluid drained immediately. The pleural fluid cytology and culture results are pending. This morning the patient is sitting up to the bedside chair. He is in no acute distress. His left pleural pigtail catheter remains in place and is connected to low continuous wall suction -20 cm H2O. Continues to drain thin serous colored drainage. 1.5 L of thin serosanguineous fluid drained in the last 24 hours. No air leak is present. He is achieving 1250 mL on his incentive spirometry. Oxygen saturations are 97% on 2 L nasal cannula. T-max temperature in the last 24 hours 98.9 F. Continues to cough up some tenacious le colored sputum. He continues on Zithromax 500 mg by mouth every 24 hours, Rocephin and vancomycin. His laboratory results this morning show a WBC count of 11.8, hemoglobin 12.4, and hematocrit 38.0. Objective - Vital Signs Vital signs: Vital Signs Temp 98.4 F 03/27/19 07:00 Pulse 112 H 03/27/19 08:16 Resp 18 03/27/19 07:00 BP 144/78 03/27/19 07:00 Pulse Ox 95 03/27/19 07:00 Intake & Output 03/26/19 03/27/19 03/27/19 18:59 06:59 18:59 Intake Total 720 240 Output Total 1030 1600 Balance -310 -1360 Intake: Oral 720 240 Output: Chest Tube Drainage 880 1200 Chest Tube Left Posterior 880 1200 Chest Urine 150 400 Other: Voiding Method Urinal # Voids 1 - Constitutional General appearance: Present: cooperative, no acute distress, obese - Respiratory Details: Lung sounds diminished to his left lower lobe, essentially clear to his right lobes. Respirations are symmetrical and nonlabored. Left chest pigtail catheter in place to low continuous wall suction -20 cm H2O. No air leak is present. Draining thin serosanguineous drainage with 1.5 L output in the last 24 hours. - Cardiovascular Details: Regular rhythm and rate. S1 and S2 present, negative for S3, gallop or murmur. - Gastrointestinal Gastrointestinal Comment(s): Abdomen soft, nontender and nondistended. Active bowel sounds present in all 4 abdominal quadrants. No guarding or rigidity. No organomegaly appreciated. - Genitourinary Genitourinary Comment(s): Voiding clear enriqueta urine. - Integumentary Integumentary Comment(s): Skin is warm and dry. No clubbing or cyanosis is present. No rash or abnormal pigmentation present. Left chest pigtail catheter dressing is clean, dry and intact. - Neurologic Neurologic Comment(s): No focal deficits. Neurologic: Present: CNII-XII intact - Musculoskeletal Musculoskeletal: Present: gait normal, strength equal bilaterally - Psychiatric Psychiatric: Present: A&O x's 3, appropriate affect, intact judgment & insight - Allied health notes Allied health notes reviewed: nursing - Labs CBC & Chem 7: 03/27/19 08:46 03/26/19 05:44 Labs: Abnormal Lab Results - Last 24 Hours (Table) 03/27/19 Range/Units 08:46 WBC 11.8 H (3.8-10.6) k/uL RBC 4.02 L (4.30-5.90) m/uL Hgb 12.4 L (13.0-17.5) gm/dL Hct 38.0 L (39.0-53.0) % Plt Count 466 H (150-450) k/uL Microbiology - Last 24 Hours (Table) 03/23/19 14:05 Anaerobic Culture - Final Pleural Fluid 03/23/19 14:05 Gram Stain - Preliminary Pleural Fluid Body Fluid Culture - Preliminary - Imaging and Cardiology Chest x-ray: report reviewed, image reviewed Assessment and Plan Assessment: 1. Left-sided parapneumonic effusion, status post placement of pigtail catheter 2. Community-acquired pneumonia on admission, currently on Rocephin and Zithromax 3. History of hypertension 4. History of hyperlipidemia 5. Newly diagnosed obstructive sleep apnea on home CPAP 6. Previous tobacco dependence 7. Daily EtOH use Plan: 1. Keep left pigtail catheter to low continuous wall suction -20 cm H2O. Keep accurate I&O. 2. We will instill alteplase 10 mg/100 mL of 0.9% normal saline for pleural irrigation through his left pigtail catheter again today. This will make up a total of 4 doses to date. 3. Wean oxygen as tolerated, bronchodilator management per pulmonary medicine recommendations. 4. Encourage use of his incentive spirometry every hour while awake. 5. Antibiotic management per pulmonary medicine. 6. Encourage increase activity. Physical and occupational therapy following. 7. GI and DVT prophylaxis. 8. Continue to follow his daily labs and chest x-rays. 9. Medical management per primary care service. 10. The left VATS/possible thoracotomy with decortication will be postponed today. We will continue to monitor his daily chest x-rays. The patient feels much improved today. 11. More recommendations to follow based on patient's clinical course. Time with Patient: Greater than 30
[2019-03-27 11:34] LABS: African American GFR (CKD) >90 (>60 ml/min/1.73 sqM); Anion Gap 7 mmol/L; Blood Urea Nitrogen 15 mg/dL (9-20); Calcium 8.2 mg/dL (8.4-10.2); Carbon Dioxide 24 mmol/L (22-30); Chloride 108 mmol/L (98-107); Glucose 105 mg/dL (74-99); Potassium 4.3 mmol/L (3.5-5.1); Sodium 139 mmol/L (137-145)
[2019-03-27] MEDS: LISINOPRIL 20 MG TAB PO SCH (11:59)
[2019-03-27] MEDS: ASPIRIN 81 MG PO SCH (12:00)
[2019-03-27] MEDS: ATORVASTATIN 40 MG TAB PO SCH (12:00)
[2019-03-27] MEDS: guaiFENesin 600 MG TABLET.ER PO SCH ×2 (12:00→20:40)
[2019-03-27] MEDS: MULTIVITAMINS, THERA 1 EACH TAB PO SCH (12:00)
[2019-03-27] MEDS: ALTEPLASE 10 MG in SODIUM CHLORIDE 0.9% 100 ML IRRIGATION ONE ×2 (12:05→12:06)
--- NOTE | 2019-03-27 13:36 | P.PN ---
Subjective Progress Note Date: 03/27/19 Principal diagnosis: Acute community acquired left lower lobe pneumonia A pleasant 68-year-old male patient, a nonsmoker without any previous history of lung disease, comes in with pleuritic left-sided chest pain. The patient was admitted to [facility] for a graduation alliance party and he felt sick, he was having chills and fever and he was having pleuritic left-sided chest pain which was quite extensive. At that point, he decided to come in to the hospital. His symptoms developed within 24 hours prior to him coming to the ED. No nausea. No vomiting. He was feeling quite weak. No bronchospasm or wheezing. No hemoptysis. Some limited congested cough without any significant sputum production. No exposure to any chemicals or respiratory irritants. Initial CAT scan of the chest showed left lower lobe consolidation with some pleural thickening consistent with pneumonia and the patient was started on a combination of Rocephin and Zithromax. Over the past 24 hours, the patient's pain remains quite active. Today's chest x-ray shows some worsening in the left lower lobe consolidation. There was some effusion as noted on the chest x-ray. Ultrasound of the chest was done and the fluid was small and based on that no marking was done. Collect however, the patient is feeling better. His pain is subsiding 1 is taking [place] and Toradol for pain control. His white cell count is at 15.8. No recurrent pneumonias. No hemoptysis. No history of DVT or pulmonary embolism. The patient is seen today 03/22/2019 in follow-up on the regular medical floor. He is currently sitting up at the bedside. Awake and alert in no acute distress. He is having a little bit more left-sided chest discomfort today as compared to yesterday. He has a loose cough. Maintaining O2 saturations in the 90s on 2 L. On room air assessment he was 83%. Blood culture reveals no growth to date. Sputum culture pending. White count 15.7. Hemoglobin 12.3. Urine Legionella antigen not detected. He remains on ceftriaxone and azithromycin along with bronchodilators. He is working well with the incentive spirometer. Toradol for pain control. On 03/23/2019 patient seen in follow-up. Patient apparently developed worsening dyspnea, he was having difficulty walking, he would the desaturate into the 80s with walking even 20 feet. Follow-up chest x-ray has been reviewed showing increasing left-sided pleural effusion, with underlying atelectasis, infiltrate or mass difficult to exclude. Follow-up chest CT showed interval development of a large left-sided pleural effusion with small aerated left lung apex. Is a parapneumonic effusion, with a recent increase in size. Today's labs have been reviewed, showing white blood cell count of 16.2, hemoglobin of 13.2, influenza screen was negative, urine legionella antigen was not detected, patient is on Flomax and Rocephin for antibiotic coverage. In addition patient had some low- grade fevers last night with a temp of 100.8F. So far blood and sputum cultures remain negative, and discussed the case with interventional radiology and we has agreed to put a CT-guided pigtail chest tube catheter for drainage of the left-sided pleural effusion, and this was done this afternoon by Dr. Bates, Pleur-evac has been connected to the pigtail chest tube and there has already been 500 mL of clear yellow pleural fluid which was sent for cultures, and pleural fluid analysis. Cardiac thoracic surgery has been consulted as well for a possibility of lung decortication On 03/24/2019 patient was seen in follow-up on selective care unit, this morning patient was quite tachycardic, and was having irregular heart rhythm on auscultation, in addition he continues to be febrile, last night his fever was 102.3 Fahrenheit, EKG was ordered, and patient was placed on remote telemetry, however in view of his significant parapneumonic pleural effusion, requiring drainage, and the possibility of arrhythmia patient was transferred to the selective care unit. While on the monitor patient has been in sinus tachycardia, with occasional PACs, no A. fib was captured on the monitor strips, I could not find the EKG that was ordered this morning. Patient has denied any central chest pain, patient has put out additional 1400 cc of pleural drainage initially draining 500 mL after immediate placement of the left-sided pigtail c hest tube catheter. Follow-up chest x-ray today showed decreased but residual moderate-sized left pleural effusion with adjacent atelectasis. Patient is working on incentive spirometer, achieving 1200 on the today, lung sounds reveal diminished breath sounds over left lower lobe, with some crackles. He is on 2 L of oxygen with a pulse ox of 93%, low-grade fever this afternoon, he is hemodynamically stable. Today's labs have been reviewed, white blood cell count is down trending, 14.8, hemoglobin is 12.7, electrodes and renal profile were within normal limits. Influenza screen has been negative, urine legionella antigen has been negative. Fluid LDH was 740, revealing exudative fluid, pl eural fluid cultures are negative. On 03/27/2019 patient seen in follow-up on selective care unit. He is awake and alert, in no acute distress, left chest pigtail chest tube catheter remains in place, and there has been 1.5 L of output in the last 24 hours with significant improvement in the size of left-sided pleural effusion on today's chest x-ray. There is residual left basilar atelectasis or associated infiltrate. Patient will receive additional dose of TPA today, his surgery is on hold. No fever or chills. Pleural fluid cultures have shown no growth, sputum blood culture were negative. Patient has been on Zithromax and Rocephin, and vancomycin has been started Objective - Vital Signs Vital signs: Vital Signs Temp 98.4 F 03/27/19 07:00 Pulse 111 H 03/27/19 11:10 Resp 18 03/27/19 08:00 BP 144/78 03/27/19 07:00 Pulse Ox 95 03/27/19 07:00 Intake & Output 03/26/19 03/27/19 03/27/19 18:59 06:59 18:59 Intake Total 720 240 Output Total 1030 1600 Balance -310 -1360 Intake: Oral 720 240 Output: Chest Tube Drainage 880 1200 Chest Tube Left Posterior 880 1200 Chest Urine 150 400 Other: Voiding Method Urinal Urinal # Voids 1 - Exam GENERAL EXAM: Alert, pleasant, 68-year-old white male, comfortable in no apparent distress. HEAD: Normocephalic/atraumatic. EYES: Normal reaction of pupils, equal size. Conjunctiva pink, sclera white. NOSE: Clear with pink turbinates. THROAT: No erythema or exudates. NECK: No masses, no JVD, no thyroid enlargement, no adenopathy. CHEST: No chest wall deformity. Symmetrical expansion. Left posterior chest pigtail chest tube catheter connected to Pleur-evac to wall suction with thin serosanguineous pleural fluid in the Pleur-evac LUNGS: Equal air entry with diminished breath sounds on the left, no rubs ABDOMEN: Soft, nontender. No hepatosplenomegaly, normal bowel sounds, no guarding or rigidity. EXTREMITIES: No clubbing, no edema, no cyanosis, 2+ pulses and upper and lower extremities. MUSCULOSKELETAL: Muscle strength and tone normal. SPINE: No scoliosis or deformity SKIN: No rashes CENTRAL NERVOUS SYSTEM: Alert and oriented -3. No focal deficits, tone is normal in all 4 extremities. PSYCHIATRIC: Alert and oriented -3. Appropriate affect. Intact judgment and insight. - Labs CBC & Chem 7: 03/27/19 08:46 03/27/19 08:46 Labs: Abnormal Lab Results - Last 24 Hours (Table) 03/27/19 03/27/19 Range/Units 08:46 08:46 WBC 11.8 H (3.8-10.6) k/uL RBC 4.02 L (4.30-5.90) m/uL Hgb 12.4 L (13.0-17.5) gm/dL Hct 38.0 L (39.0-53.0) % Plt Count 466 H (150-450) k/uL Chloride 108 H (98-107) mmol/L Glucose 105 H (74-99) mg/dL Calcium 8.2 L (8.4-10.2) mg/dL Microbiology - Last 24 Hours (Table) 03/23/19 14:05 Gram Stain - Final Pleural Fluid Body Fluid Culture - Final 03/23/19 14:05 Anaerobic Culture - Final Pleural Fluid Assessment and Plan Plan: Assessment: 1 acute left lower lobe community-acquired pneumonia complicated by a parapneumonic effusion, complicated, requiring a PICC the catheterization with daily 2. Administration with suboptimal results in terms of evacuating the left-sided pleural effusion. The patient continues to have opacification, loculations and the patient will benefit from a thoracoscopic decortication. The patient will be taken to the operating room. Discussed the case with Dr. Marcelo Taylor. He remains quite symptomatic. Still on 2 L of oxygen by nasal cannula. 2 acute hypoxic respiratory failure, improving 3 acute febrile illness secondary left lower lobe pneumonia 4 acute leukocytosis secondary to above 5 small left-sided pleural effusion 6 hypertension 7 hyperlipidemia 8 obstructive sleep apnea with an AHI of 9 and the patient was started on CPAP therapy Plan: Continue with the current antibiotic coverage, today's chest x-ray shows significant improvement in the appearance of the left parapneumonic pleural effusion, patient's thoracoscopic surgery is on hold, and he has received additional dose of alteplase. No fever or chills, pleural fluid cultures have shown no growth so far. Encourage deep breathing and coughing, continue with daily chest x-rays. I performed a history & physical examination of the patient and discussed their management with my nurse practitioner, Manda Preston. I reviewed the nurse practitioner's note and agree with the documented findings and plan of care. Lung sounds are positive for diminished sounds over left lung. The findings and the impression was discussed with the patient. I attest to the documentation by the nurse practitioner. Time with Patient: Less than 30
[2019-03-27] MEDS: SENNOSIDES 8.6 MG TAB PO SCH (20:39)
[2019-03-27] MEDS: AZITHROMYCIN 500 MG TAB PO SCH (23:17)
[2019-03-28] MEDS: IPRATROPIUM-ALBUTEROL 3 ML NEB INHALATION SCH ×6 (03:22→20:18)
[2019-03-28 06:37] LABS: HCT 36.3 % (39.0-53.0); HGB 11.8 gm/dL (13.0-17.5); MCH 30.9 pg (25.0-35.0); MCHC 32.5 g/dL (31.0-37.0); MCV 95.1 fL (80.0-100.0); Mean Platelet Volume 7.3; Platelet Count 481 k/uL (150-450); RBC 3.82 m/uL (4.30-5.90); RDW 13.2 % (11.5-15.5); WBC 9.9 k/uL (3.8-10.6)
[2019-03-28 06:43] LABS: African American GFR (CKD) >90 (>60 ml/min/1.73 sqM); Anion Gap 7 mmol/L; Blood Urea Nitrogen 13 mg/dL (9-20); Calcium 8.1 mg/dL (8.4-10.2); Carbon Dioxide 27 mmol/L (22-30); Chloride 108 mmol/L (98-107); Glucose 108 mg/dL (74-99); Potassium 4.2 mmol/L (3.5-5.1); Sodium 142 mmol/L (137-145)
[2019-03-28] MEDS: PANTOPRAZOLE 40 MG TABLET PO SCH (07:03)
[2019-03-28] MEDS: KETOROLAC 30 MG/ML 1 ML VIAL IVP SCH ×4 (07:03→23:25)
[2019-03-28] MEDS: VANCOMYCIN 2,000 MG in SODIUM CHLORIDE 0.9% 500 ML 500 ML IVPB SCH ×2 (07:03→17:47)
--- NOTE | 2019-03-28 08:07 | XR ---
EXAMINATION TYPE: XR chest 1V portable DATE OF EXAM: 03/28/2019 CLINICAL HISTORY: Difficulty breathing progress study. Left-sided pleural effusion and chest tube. TECHNIQUE: Single AP portable upright view of the chest is obtained. COMPARISON: Chest x-ray from one day earlier and older studies. CT chest June 22, 2019 FINDINGS: Left basilar coiled chest tube or pleural drainage catheter is redemonstrated and stable i n position projecting over left upper quadrant. There is persistent left greater than right bibasilar opacities. Cardiac silhouette size is stable and mildly enlarged. Upper lungs are clear without pneu mothorax. Osseous structures are intact. IMPRESSION: Overall stable findings, persistent left basilar pleural drainage catheter with small l eft greater than right pleural effusions and associated bibasilar acute infiltrate and/or atelectasis all are redemonstrated.
[2019-03-28] MEDS: MULTIVITAMINS, THERA 1 EACH TAB PO SCH (08:25)
[2019-03-28] MEDS: ATORVASTATIN 40 MG TAB PO SCH (08:25)
[2019-03-28] MEDS: guaiFENesin 600 MG TABLET.ER PO SCH ×2 (08:25→20:57)
[2019-03-28] MEDS: HEPARIN SODIUM,PORCINE 5,000 UNIT/ML 1 ML VIAL SQ SCH ×3 (08:25→23:25)
[2019-03-28] MEDS: ASPIRIN 81 MG PO SCH (08:26)
[2019-03-28] MEDS: LISINOPRIL 20 MG TAB PO SCH (08:26)
--- NOTE | 2019-03-28 09:39 | CT ---
EXAMINATION TYPE: CT chest wo con DATE OF EXAM: 03/28/2019 COMPARISON: CT chest 5 days earlier. Chest x-ray earlier today an older x-rays HISTORY: Left loculated pleural effusion CT DLP: 576.2 mGycm. Automated Exposure Control for Dose Reduction was Utilized. TECHNIQUE: CT scan of the thorax is performed without IV contrast. FINDINGS: LUNGS: Pigtail drainage catheter lateral left lung base is felt to be coiled in the pleural space wit hin the small residual left pleural fluid collection. Perhaps the fluid collection is too thick to co mpletely drain? There is associated left basilar compressive atelectasis and/or consolidation. Pleur al fluid collection is improved from prior CT. There is stable trace or tiny right-sided pleural fluid collection with associated right lower lung c onsolidation and/or atelectasis axial image 35 which is slightly more prominent from prior CT. Respiratory motion artifact degradation is present. No suspicious nodules or masses. MEDIASTINUM: Lack of IV contrast is noted to limit evaluation for mediastinal and especially hilar ad enopathy. There are no definitive new greater than 1 cm hilar or mediastinal lymph nodes. Scattered p rominent but subcentimeter lymph nodes prevascular space and pericarinal level are stable. No signif icant pericardial effusion is seen. Stable mild cardiomegaly. OTHER: Partial visualization of simple thin-walled 7.2 cm cyst upper pole of the left kidney. Multile mónica spurring in the spine. Straightening of cervical spine with disc space narrowing T10-T11 level. S light S-shaped scoliotic curvature. IMPRESSION: Left basilar pigtail pleural drainage catheter spelled satisfactory in position with smal l residual left pleural fluid collection that is improved from prior CT. It is uncertain why there is not complete drainage of pleural fluid collection. Correlate clinically with output. There is associ ated left basilar atelectasis and/or consolidation. There is developing central right infrahilar cons olidation and/or atelectasis noted.
--- NOTE | 2019-03-28 09:58 | P.PN ---
Subjective Progress Note Date: 03/28/19 Principal diagnosis: Left-sided parapneumonic effusion, community-acquired pneumonia, history of hypertension, hyperlipidemia, obstructive sleep apnea on home CPAP, remote history of tobacco dependence and history of daily EtOH use. The patient was admitted to the hospital on 03/19/2019 after presenting to the emergency department here at [facility] with complaints of fever and chills that started as he was driving from [facility] to attend his granddaughter's graduation alliance party. The patient reports traveling here to the [place] area he developed a cough, fever and lower back pain. On presentation to the emergency department a chest x-ray was completed which showed him to have a left lower lobe infiltrate. He also underwent a KUB due to his complaints of lower back pain which demonstrated a possible ileus. For further evaluation a computed tomography scan of his chest, abdomen and pelvis was completed which demonstrated a left lower lobe infiltrate with pleural effusion. His initial lab results showed a WBC count 13.8, Hgb 14.4, BUN 17, creatinine 1.04 and a random glucose 155. Subsequently he was seen by Dr. Snyder from pulmonary medicine and was started on Rocephin and Zithromax for antibiotic coverage. Daily chest x-rays were completed which showed worsening of his left sided pleural effusion which was confirmed on a computed tomography scan of his chest. Due to the increasing size of his left pleural effusion interventional radiology was consulted and a left chest pigtail catheter was placed yesterday with 500 mL of serous colored fluid drained immediately. The pleural fluid cytology and culture results are pending. POD #5 CT-guided insertion of left pigtail catheter by interventional radiology. This morning the patient is sitting up to the bedside chair. He is in no acute distress. His left pleural pigtail catheter remains in place and is connected to low continuous wall suction -20 cm H2O. Continues to drain thin serous colored drainage. 900 milliliters of thin serosanguineous fluid drained in the last 24 hours. No air leak is present. Alteplase 10 mg/100 mL of 0.9% normal saline instilled through his left chest pigtail catheter yesterday. He is achieving 1500 mL on his incentive spirometry. Oxygen saturations are 94% on 2 L nasal cannula. The patient remains afebrile in the last 24 hours. Continues to cough up some tenacious le colored sputum. He continues on Rocephin and vancomycin. His laboratory results this morning show a WBC count of 9.9, hemoglobin 11.8, and hematocrit 36.3. He reports that he has been ambulating in the [address] [place] [id number] with minimal assistance. He also reports that he is feeling better on a daily basis. Objective - Vital Signs Vital signs: Vital Signs Temp 99.1 F 03/28/19 08:33 Pulse 92 03/28/19 08:33 Resp 20 03/28/19 08:33 BP 132/68 03/28/19 08:33 Pulse Ox 94 L 03/28/19 08:33 Intake & Output 03/27/19 03/28/19 03/28/19 18:59 06:59 18:59 Intake Total 480 Output Total 810 1100 600 Balance -330 -1100 -600 Intake: Oral 480 Output: Chest Tube Drainage 510 600 Chest Tube Left Posterior 510 600 Chest Urine 300 1100 Other: Voiding Method Urinal Urinal Urinal # Voids 1 # Bowel Movements 0 - Constitutional General appearance: Present: cooperative, no acute distress, obese - Respiratory Details: Lungs sounds essentially clear to his bilateral upper lobes, diminished to his bilateral bases left greater than right. Respirations are symmetrical and nonlabored. No wheezes, rhonchi or crackles. Oxygen saturation is 94% on 2 L nasal cannula. Achieving 1500 mL on his incentive spirometry. Left pleural pigtail catheter in place to low continuous wall suction -20 cm H2O. No air leak is present. Draining thin serosanguineous drainage with 900 mL output in the last 24 hours. - Cardiovascular Details: Regular rhythm and rate. S1 and S2 present, negative for S3, gallop or murmur. - Gastrointestinal Gastrointestinal Comment(s): Abdomen is soft, nontender and nondistended. Active bowel sounds present in all 4 abdominal quadrants. No guarding or rigidity. No organomegaly. - Genitourinary Genitourinary Comment(s): Continuing to void clear enriqueta urine. - Integumentary Integumentary Comment(s): No rash or abnormal pigmentation is present. +1 edema to his bilateral lower extremities. Left chest pigtail catheter site dressing clean, dry and intact. - Neurologic Neurologic Comment(s): No focal deficits. Neurologic: Present: CNII-XII intact - Musculoskeletal Musculoskeletal: Present: gait normal, generalized weakness, strength equal bilaterally - Psychiatric Psychiatric: Present: A&O x's 3, appropriate affect, intact judgment & insight - Allied health notes Allied health notes reviewed: nursing - Labs CBC & Chem 7: 03/28/19 05:39 03/28/19 05:39 Labs: Abnormal Lab Results - Last 24 Hours (Table) 03/27/19 03/28/19 03/28/19 Range/Units 08:46 05:39 05:39 RBC 3.82 L (4.30-5.90) m/uL Hgb 11.8 L (13.0-17.5) gm/dL Hct 36.3 L (39.0-53.0) % Plt Count 481 H (150-450) k/uL Chloride 108 H 108 H (98-107) mmol/L Glucose 105 H 108 H (74-99) mg/dL Calcium 8.2 L 8.1 L (8.4-10.2) mg/dL Microbiology - Last 24 Hours (Table) 03/23/19 14:05 Gram Stain - Final Pleural Fluid Body Fluid Culture - Final 03/23/19 14:05 Anaerobic Culture - Final Pleural Fluid - Imaging and Cardiology Chest x-ray: report reviewed, image reviewed CT scan - chest: report reviewed, image reviewed Assessment and Plan Assessment: 1. Left-sided parapneumonic effusion, status post placement of pigtail catheter 2. Community-acquired pneumonia on admission, currently on Rocephin and Zithrom ax 3. History of hypertension 4. History of hyperlipidemia 5. Newly diagnosed obstructive sleep apnea on home CPAP 6. Previous tobacco dependence 7. Daily EtOH use Plan: 1. Keep left pigtail catheter to low continuous wall suction -20 cm H2O. May disconnected from suction to a Satinder in the hallway. Keep accurate I&O. 2. We will obtain a CT of the chest without contrast to reevaluate his left pleural effusion. He tentatively put on the OR schedule for this afternoon at 1 PM for a left VATS/possible thoracotomy with decortication to be performed by Dr. Augustine Flores. 3. Wean oxygen as tolerated, bronchodilator management per pulmonary medicine recommendations. 4. Encourage use of his incentive spirometry every hour while awake. 5. Antibiotic management per pulmonary medicine. 6. Encourage increase activity. Physical and occupational therapy following. 7. GI and DVT prophylaxis. 8. Continue to follow his daily labs and chest x-rays. 9. Medical management per primary care service. 10. More recommendations to follow based on patient's clinical course. Time with Patient: Greater than 30
--- NOTE | 2019-03-28 10:27 | CDI ---
Documentation Clarification Form Date: 03/28/2019 9:54:38 AM From: Gosia Zamora Admit Date: 03/21/2019 11:38:00 AM Patient Name: Andriy Garsia Visit Number: [id number] ATTENTION: The Clinical Documentation Specialists (CDI) and [facility] Coding Staff appreciate your assistance in clarifying documentation. Please respond to the clarification below the line at the bottom and electronically sign. The CDI & [facility] Coding staff will review the response and follow-up if needed. Please note: Queries are made part of the Legal Health Record. If you have any questions, please contact the author of this message via ITS. Dr. Yolie Bolanos Pneumonia was documented in the H&P and progress Notes and requires further specificity. History/Risk Factors: HTN, Hyperlipidemia, sleep apnea, pleural effusion- Patient has documented sepsis this admission and a chest tune has also been placed for a pleural effusion. Clinical Indicators: 03/27 Attending Progress Note: "Left lower lobe community-acquired pneumonia with sepsis with associated large left-sided pleural effusion status post pigtail catheter insertion - Likely VATS today." Vital signs: Temp 103, Hr 129, B/P 115/70, RR 20, spo2 93% ra WBC; 13.8/15.8/16.2 Left shift:12.5/13.6/14.3 03/19 CXR: "Left basilar coiled chest tube or pleural drainage catheter is redemonstrated and stable in position projecting over left upper quadrant. There is persistent left greater than right bibasilar opacities. Cardiac silhouette size is stable and mildly enlarged." 03/27 Pulmonary Lung/Breathing assessment: "LUNGS: Equal air entry with diminished breath sounds on the left." Cultures: Sputum, blood and pleural fluid all negative Treatment: Antibiotics: IV Rocephin, IV Zithromax, IV Vanco PTD O2: Room air 2L Nasal cannula Breathing Tx: Duoneb Q 4 hrs and Q 2 hrs PRN SOB IVF Bolus In order to capture the severity of condition, please clarify if the condition signifies and you are treating for: Aspiration Pneumonia, identify if: Due to solids or liquids Bacterial Pneumonia, specify causal organism (if known) Gram Negative Pneumonia Due to Strep Due to Staph Due to E. coli Other bacteria (please specify) Viral Pneumonia, specify casual organism (if known) Ventilator Associated Pneumonia Healthcare Acquired Pneumonia/Pneumonia, unspecified Other, please specify Unable to determine (Last Revision: October 2017) bacterial pneumonia MTDD
[2019-03-28 11:27] VITALS: BMI 31.2
[2019-03-28] MEDS ORDERED: IV FLUID CONTINUATION 1,000 ML IV ONE (12:43)
--- NOTE | 2019-03-28 12:46 | P.PN ---
Subjective Progress Note Date: 03/28/19 Principal diagnosis: Acute community acquired left lower lobe pneumonia A pleasant 68-year-old male patient, a nonsmoker without any previous history of lung disease, comes in with pleuritic left-sided chest pain. The patient was admitted to [facility] for a graduation libertarian and he felt sick, he was having chills and fever and he was having pleuritic left-sided chest pain which was quite extensive. At that point, he decided to come in to the hospital. His symptoms developed within 24 hours prior to him coming to the ED. No nausea. No vomiting. He was feeling quite weak. No bronchospasm or wheezing. No hemoptysis. Some limited congested cough without any significant sputum production. No exposure to any chemicals or respiratory irritants. Initial CAT scan of the chest showed left lower lobe consolidation with some pleural thickening consistent with pneumonia and the patient was started on a combination of Rocephin and Zithromax. Over the past 24 hours, the patient's pain remains quite active. Today's chest x-ray shows some worsening in the left lower lobe consolidation. There was some effusion as noted on the chest x-ray. Ultrasound of the chest was done and the fluid was small and based on that no marking was done. Collect however, the patient is feeling better. His pain is subsiding 1 is taking Vesta and Toradol for pain control. His white cell count is at 15.8. No recurrent pneumonias. No hemoptysis. No history of DVT or pulmonary embolism. The patient is seen today 03/22/2019 in follow-up on the regular medical floor. He is currently sitting up at the bedside. Awake and alert in no acute distress. He is having a little bit more left-sided chest discomfort today as compared to yesterday. He has a loose cough. Maintaining O2 saturations in the 90s on 2 L. On room air assessment he was 83%. Blood culture reveals no growth to date. Sputum culture pending. White count 15.7. Hemoglobin 12.3. Urine Legionella antigen not detected. He remains on ceftriaxone and azithromycin along with bronchodilators. He is working well with the incentive spirometer. Toradol for pain control. On 03/23/2019 patient seen in follow-up. Patient apparently developed worsening dyspnea, he was having difficulty walking, he would the desaturate into the 80s with walking even 20 feet. Follow-up chest x-ray has been reviewed showing increasing left-sided pleural effusion, with underlying atelectasis, infiltrate or mass difficult to exclude. Follow-up chest CT showed interval development of a large left-sided pleural effusion with small aerated left lung apex. Is a parapneumonic effusion, with a recent increase in size. Today's labs have been reviewed, showing white blood cell count of 16.2, hemoglobin of 13.2, influenza screen was negative, urine legionella antigen was not detected, patient is on Flomax and Rocephin for antibiotic coverage. In addition patient had some low- grade fevers last night with a temp of 100.8F. So far blood and sputum cultures remain negative, and discussed the case with interventional radiology and we has agreed to put a CT-guided pigtail chest tube catheter for drainage of the left-sided pleural effusion, and this was done this afternoon by Dr. Bates, Pleur-evac has been connected to the pigtail chest tube and there has already been 500 mL of clear yellow pleural fluid which was sent for cultures, and pleural fluid analysis. Cardiac thoracic surgery has been consulted as well for a possibility of lung decortication On 03/24/2019 patient was seen in follow-up on selective care unit, this morning patient was quite tachycardic, and was having irregular heart rhythm on auscultation, in addition he continues to be febrile, last night his fever was 102.3 Fahrenheit, EKG was ordered, and patient was placed on remote telemetry, however in view of his significant parapneumonic pleural effusion, requiring drainage, and the possibility of arrhythmia patient was transferred to the selective care unit. While on the monitor patient has been in sinus tachycardia, with occasional PACs, no A. fib was captured on the monitor strips, I could not find the EKG that was ordered this morning. Patient has denied any central chest pain, patient has put out additional 1400 cc of pleural drainage initially draining 500 mL after immediate placement of the left-sided pigtail c hest tube catheter. Follow-up chest x-ray today showed decreased but residual moderate-sized left pleural effusion with adjacent atelectasis. Patient is working on incentive spirometer, achieving 1200 on the today, lung sounds reveal diminished breath sounds over left lower lobe, with some crackles. He is on 2 L of oxygen with a pulse ox of 93%, low-grade fever this afternoon, he is hemodynamically stable. Today's labs have been reviewed, white blood cell count is down trending, 14.8, hemoglobin is 12.7, electrodes and renal profile were within normal limits. Influenza screen has been negative, urine legionella antigen has been negative. Fluid LDH was 740, revealing exudative fluid, pl eural fluid cultures are negative. On 03/27/2019 patient seen in follow-up on selective care unit. He is awake and alert, in no acute distress, left chest pigtail chest tube catheter remains in place, and there has been 1.5 L of output in the last 24 hours with significant improvement in the size of left-sided pleural effusion on today's chest x-ray. There is residual left basilar atelectasis or associated infiltrate. Patient will receive additional dose of TPA today, his surgery is on hold. No fever or chills. Pleural fluid cultures have shown no growth, sputum blood culture were negative. Patient has been on Zithromax and Rocephin, and vancomycin has been started On 03/28/2019 patient had additional 600 mL out of the left posterior pigtail chest tube catheter after another dose of alteplase that was given yesterday. Chest x-ray showed persistent left greater than right pleural effusions and associated bibasilar acute infiltrate. This was followed by CT chest without contrast knowing small residual left pleural fluid collection which has improved from prior CT chest however there is incomplete drainage of the pleural fluid collection, still showing loculated pleural effusion. And developing central and right infrahilar consolidation. In view of these findings, and persistence of loculated parapneumonic pleural effusions surgery is tentatively put the patient on a schedule Ceftin for a left VATS/possible thoracotomy with decortication by Dr. Flores. Objective - Vital Signs Vital signs: Vital Signs Temp 98.9 F 03/28/19 12:35 Pulse 78 03/28/19 12:35 Resp 18 03/28/19 12:35 BP 148/66 03/28/19 12:35 Pulse Ox 95 03/28/19 12:35 Intake & Output 03/27/19 03/28/19 03/28/19 18:59 06:59 18:59 Intake Total 480 240 Output Total 810 1100 600 Balance -330 -1100 -360 Weight 104.5 kg Intake: Oral 480 240 Output: Chest Tube Drainage 510 600 Chest Tube Left Posterior 510 600 Chest Urine 300 1100 0 Other: Voiding Method Urinal Urinal Urinal # Voids 1 # Bowel Movements 0 - Exam GENERAL EXAM: Alert, pleasant, 68-year-old white male, comfortable in no apparent distress. HEAD: Normocephalic/atraumatic. EYES: Normal reaction of pupils, equal size. Conjunctiva pink, sclera white. NOSE: Clear with pink turbinates. THROAT: No erythema or exudates. NECK: No masses, no JVD, no thyroid enlargement, no adenopathy. CHEST: No chest wall deformity. Symmetrical expansion. Left posterior chest pigtail chest tube catheter connected to Pleur-evac to wall suction with thin serosanguineous pleural fluid in the Pleur-evac LUNGS: Equal air entry with diminished breath sounds on the left, no rubs ABDOMEN: Soft, nontender. No hepatosplenomegaly, normal bowel sounds, no guarding or rigidity. EXTREMITIES: No clubbing, no edema, no cyanosis, 2+ pulses and upper and lower extremities. MUSCULOSKELETAL: Muscle strength and tone normal. SPINE: No scoliosis or deformity SKIN: No rashes CENTRAL NERVOUS SYSTEM: Alert and oriented -3. No focal deficits, tone is normal in all 4 extremities. PSYCHIATRIC: Alert and oriented -3. Appropriate affect. Intact judgment and insight. - Labs CBC & Chem 7: 03/28/19 05:39 03/28/19 05:39 Labs: Abnormal Lab Results - Last 24 Hours (Table) 03/28/19 03/28/19 Range/Units 05:39 05:39 RBC 3.82 L (4.30-5.90) m/uL Hgb 11.8 L (13.0-17.5) gm/dL Hct 36.3 L (39.0-53.0) % Plt Count 481 H (150-450) k/uL Chloride 108 H (98-107) mmol/L Glucose 108 H (74-99) mg/dL Calcium 8.1 L (8.4-10.2) mg/dL Microbiology - Last 24 Hours (Table) 03/23/19 14:05 Gram Stain - Final Pleural Fluid Body Fluid Culture - Final 03/23/19 14:05 Anaerobic Culture - Final Pleural Fluid Assessment and Plan Plan: Assessment: 1 acute left lower lobe community-acquired pneumonia complicated by a parapneumonic effusion, complicated, requiring a PICC the catheterization with daily 2. Administration with suboptimal results in terms of evacuating the left-sided pleural effusion. The patient continues to have opacification, loculations and the patient will benefit from a thoracoscopic decortication. On 03/28/2019 patient is still having persistence of loculated pleural effusions on follow-up CT chest without contrast after several doses of TPA has been given with significant drainage of the parapneumonic pleural fluid. Case was discussed with the CT surgery, and patient will undergo thoracoscopic VATS/decortication of the left lung today. All cultures remain negative, patient is afebrile mildly short of breath. Is on a combination of Zosyn Zithromax and vancomycin 2 acute hypoxic respiratory failure, improving 3 acute febrile illness secondary left lower lobe pneumonia, improved 4 acute leukocytosis secondary to above, improving 5 small left-sided pleural effusion 6 hypertension 7 hyperlipidemia 8 obstructive sleep apnea with an AHI of 9 and the patient was started on CPAP therapy Plan: Follow-up CT chest has been reviewed with Dr. Cowart and shows persistence an incomplete emptying of the left parapneumonic pleural effusion despite the TPA. Although patient did drain significant amount of fluid after alteplase infusions, he may ultimately benefit from VATS/decortication. CT surgery is following, and is plan on proceeding with VATS/decortication this afternoon. Continue with current antibiotic coverage, nebulized bronchodilators. Will follow I performed a history & physical examination of the patient and discussed their management with my nurse practitioner, Manda Preston. I reviewed the nurse practitioner's note and agree with the documented findings and plan of care. Lung sounds are positive for diminished sounds over left lung. The findings and the impression was discussed with the patient. I attest to the documentation by the nurse practitioner. Time with Patient: Less than 30
[2019-03-28] MEDS ORDERED: MIDAZOLAM (PF) 2 MG/2 ML VIAL IVP ONE (12:54)
[2019-03-28] MEDS ORDERED: LACTATED RINGERS 1,000 ML IV ONE ×2 (13:02→14:58)
[2019-03-28] MEDS ORDERED: GLYCOPYRROLATE 0.2 MG/ML 2 ML VIAL ONE (13:56)
[2019-03-28] MEDS ORDERED: PROPOFOL 10 MG/ML 20 ML VIAL IV ONE (13:56)
[2019-03-28] MEDS ORDERED: PHENYLEPHRINE-0.9% NACL SYG 1 MG/10 ML SYRINGE ONE (13:56)
[2019-03-28] MEDS ORDERED: ePHEDrine SULFATE/0.9% NACL/PF 50 MG/5 ML SYRINGE IV ONE (13:56)
[2019-03-28] MEDS ORDERED: NEOSTIGMINE 1 MG/ML 10 ML VIAL ONE (13:56)
[2019-03-28] MEDS ORDERED: ROCURONIUM BROMIDE 10 MG/ML 10 ML VIAL IV ONE (13:56)
[2019-03-28] MEDS ORDERED: SUCCINYLCHOLINE CHLORIDE 100 MG/5 ML SYR IV ONE (13:56)
[2019-03-28] MEDS ORDERED: HYDROmorphone (PF) 1 MG/ML ONE (13:56)
[2019-03-28] MEDS ORDERED: LIDOCAINE 1% INJ 10MG/ML (20 ML MDV) ONE (13:56)
[2019-03-28] MEDS ORDERED: fentaNYL (PF) 50 MCG/ML 2 ML AMP ONE (13:56)
[2019-03-28] MEDS ORDERED: BUPIVACAINE (PF) 0.5% 30 ML VIAL SQ ONE (14:40)
[2019-03-28] MEDS: HYDROmorphone 1 MG/ML 1 ML SYRINGE IVP ONE ×2 (15:59→16:09)
--- NOTE | 2019-03-28 16:21 | XR ---
EXAMINATION TYPE: XR chest 1V portable DATE OF EXAM: 03/28/2019 COMPARISON: Prior chest x-ray 03/28/2019 HISTORY: Postop left decortication, chest tube placement TECHNIQUE: Single frontal view of the chest is obtained. FINDINGS: Technique is somewhat apical lordotic. There is subcutaneous emphysema. Left-sided chest t ubes are present coursing inferiorly and superiorly. No evident pneumothorax. Some improved aeration present at the left lung base. Subsegmental basilar atelectatic changes are suspected, lung volumes a re low. Heart size is likely stable accounting for technique. IMPRESSION: Cardiothoracic surgery follow-up, postprocedural changes.
[2019-03-28] MEDS ORDERED: HYDROmorphone 1 MG/ML 1 ML SYRINGE IVP ONE (16:25)
[2019-03-28] MEDS ORDERED: ONDANSETRON 4 MG/2 ML VIAL IVP PRN (16:33)
[2019-03-28] MEDS ORDERED: DEXTROSE 5%-0.45% NACL 1,000 ML IV SCH (16:33)
--- NOTE | 2019-03-28 16:37 | P.PN ---
Subjective Progress Note Date: 03/28/19 Principal diagnosis: Shortness of breath Patient is a 68-year-old male past medical history of hypertension, dyslipidemia, and remote tobacco abuse who presented to the emergency department with complaints of back pain, coughing, and thick yellow sputum. In the emerge ncy department he initially underwent a chest x-ray which showed atelectasis versus pneumonia at the left base. He underwent a KUB which showed scattered air-fluid levels. He then underwent a CT chest/abdomen/pelvis. This demonstrated a left lower lobe consolidation with associated pleural effusion. Abdomen and pelvis was unremarkable. Laboratory analysis showed elevated white blood cell count 13.8. His initial temperature was 103 and then peaked at 104.7. He was started on IV fluids, antibiotics, and arrangements were made for admission for community-acquired pneumonia with sepsis. He was started on Rocephin and Zithromax. Repeat chest x-ray on 03/21 showed progressively worsening small to moderate left pleural effusion. This was followed by chest ultrasound which did not demonstrate significant effusion. Pulmonary was consulted who agreed with continuing Rocephin and Zithromax. Patient dyspnea worsened. Repeat chest x-ray on the morning of 03/23 showed worsening pleural effusion. Patient underwent CT of the chest that showed a large left-sided pleural effusion. He subsequently had a pigtail catheter placed. Still with pleural effusion on chest x-ray on 03/24 and altaplase instilled with good results. Altaplase again instilled on 03/25 without return of fluid initially but then had good return of fluid later that night. instilled again on 03/26 and 03/27. Still with significant effusion on 03/28. Patient seen and examined at bedside. No chest pain, SOB is improving but not a baseline, cough is better, still with constipation, no diarrhea. Objective - Vital Signs Vital signs: Vital Signs Temp 98.6 F 03/28/19 15:45 Pulse 84 03/28/19 16:02 Resp 20 03/28/19 16:02 BP 120/69 03/28/19 16:02 Pulse Ox 97 03/28/19 16:02 Intake & Output 03/27/19 03/28/19 03/28/19 18:59 06:59 18:59 Intake Total 480 1590 Output Total 810 1100 1550 Balance -330 -1100 40 Weight 104.5 kg Intake: IV 1350 Oral 480 240 Output: Chest Tube Drainage 510 600 Chest Tube Left Posterior 510 600 Chest Urine 300 1100 800 Estimated Blood Loss 150 Other: Voiding Method Urinal Urinal Urinal # Voids 1 1 # Bowel Movements 0 - Exam General: ill appearing, no distress, appears at stated age, sunken eyes Derm: warm, dry Head: atraumatic, normocephalic, symmetric Eyes: EOMI, no lid lag, anicteric sclera Mouth: no lip lesion, mucus membranes moist Cardiovascular: S1S2, no murmur, positive posterior tibial pulse bilateral, Lungs: Decreased breath sounds left base, no rhonchi, no rales , no accessory muscle use Abdominal: soft, nontender to palpation, no guarding, no appreciable organomeg adria Ext: no gross muscle atrophy, trace edema, no contractures Neuro: CN II-XI grossly intact, no focal neuro deficits Psych: Alert, oriented, appropriate affect - Labs CBC & Chem 7: 03/28/19 05:39 03/28/19 05:39 Labs: Abnormal Lab Results - Last 24 Hours (Table) 03/28/19 03/28/19 Range/Units 05:39 05:39 RBC 3.82 L (4.30-5.90) m/uL Hgb 11.8 L (13.0-17.5) gm/dL Hct 36.3 L (39.0-53.0) % Plt Count 481 H (150-450) k/uL Chloride 108 H (98-107) mmol/L Glucose 108 H (74-99) mg/dL Calcium 8.1 L (8.4-10.2) mg/dL Microbiology - Last 24 Hours (Table) 03/23/19 14:05 Gram Stain - Final Pleural Fluid Body Fluid Culture - Final Assessment and Plan Assessment: Left lower lobe community-acquired pneumonia, bacterial probable staph or strep, with sepsis with associated Loculated left-sided pleural effusion status post pigtail catheter insertion - D/W cardiovascular thoracic surgery. Possible VATS today. No improvement with chest tube. Repeat CT scan. - continue with rocephin and vanco. stop zithromax -Pulmonary recs - Aerobic and Anerobic cultures negative - bronchodilators -Cardiothoracic surgery recommendations -Pulmonary hygiene, Mucinex -IV fluids completed Acute hypoxic respiratory failure, improving -Continue to wean oxygen as able Hypertension, improved -Continue lisinopril 40 mg -Follow blood pressure Dyslipidemia -Continue statin CONNOR - CPAP DVT prophylaxis: Early ambulation, heparin Discussed with: Patient, nursing, Jl Solomon NP Anticipated discharge: 2-[address]: Home vs A total of 25 minutes was spent on the care of this complex patient more than 50% of the time was spent in counseling and care coordination.
[2019-03-28] MEDS: POLYETHYLENE GLYCOL 3350 17 GM POWD.PACK PO SCH (17:46)
[2019-03-28] MEDS: HYDROcodone/APAP 5-325MG 1 EACH TAB PO PRN (20:57)
[2019-03-28] MEDS: SENNOSIDES 8.6 MG TAB PO SCH (20:57)
[2019-03-29] MEDS: IPRATROPIUM-ALBUTEROL 3 ML NEB INHALATION SCH ×7 (00:09→23:35)
[2019-03-29] MEDS: VANCOMYCIN 2,000 MG in SODIUM CHLORIDE 0.9% 500 ML 500 ML IVPB SCH ×3 (01:41→22:29)
[2019-03-29 06:16] LABS: Basophils # (A) 0.1 k/uL (0-0.2); Basophils % (A) 1 %; Eosinophils # (A) 0.4 k/uL (0-0.7); Eosinophils % (A) 3 %; HCT 35.2 % (39.0-53.0); HGB 11.6 gm/dL (13.0-17.5); Lymphocytes # (A) 0.5 k/uL (1.0-4.8); Lymphocytes % (A) 4 %; MCH 31.7 pg (25.0-35.0); MCHC 33.1 g/dL (31.0-37.0); MCV 95.8 fL (80.0-100.0); Mean Platelet Volume 6.8; Monocytes # (A) 0.7 k/uL (0-1.0); Monocytes % (A) 5 %; Neutrophils # (A) 12.2 k/uL (1.3-7.7); Neutrophils % (A) 87 %; Platelet Count 516 k/uL (150-450); RBC 3.68 m/uL (4.30-5.90); RDW 12.8 % (11.5-15.5)
[2019-03-29 06:21] LABS: African American GFR (CKD) >90 (>60 ml/min/1.73 sqM); Anion Gap 5 mmol/L; Blood Urea Nitrogen 10 mg/dL (9-20); Carbon Dioxide 28 mmol/L (22-30); Chloride 104 mmol/L (98-107); Glucose 137 mg/dL (74-99); Potassium 4.2 mmol/L (3.5-5.1); Sodium 137 mmol/L (137-145)
[2019-03-29] MEDS: KETOROLAC 30 MG/ML 1 ML VIAL IVP SCH ×2 (06:35→12:11)
[2019-03-29] MEDS: PANTOPRAZOLE 40 MG TABLET PO SCH (06:35)
--- NOTE | 2019-03-29 07:23 | OP ---
OPERATIVE REPORT DATE OF SURGERY: 03/28/2019 PREOPERATIVE DIAGNOSIS: Loculated left pleural effusion. POSTOPERATIVE DIAGNOSIS: Loculated left pleural effusion. PROCEDURE: Left VATS decortication. SURGEON: Augustine Flores MD. MAIL HANDLER: CHARLEEN Weiner. ANESTHESIA: General. SPECIMEN: Pleural fluid. COMPLICATIONS: None. INDICATION: The patient is an 78-year-old male with a past medical history significant for hyperlipidemia, hypertension, sleep apnea, and tobacco use who presented to the hospital about 10 days ago with fevers and chills. He subsequently developed lower back pain and again presented to the Emergency Department. Workup revealed a left lower lobe infiltrate. He was started on antibiotics. After several days, imaging studies revealed a large left pleural effusion. A pigtail drain was placed with drainage of some of the fluid. In addition, alteplase was subsequently injected for several days with improvement but not resolution. Left VATS decortication was recommended. The risks, benefits, and alternatives to this procedure were discussed with the patient. All his questions were answered. Consent was obtained. FINDINGS: There was approximately 500 mL of serosanguineous fluid within the chest cavity. There were adhesions between the lung and the chest wall. There was no evidence of purulent fluid. There was a thin peel on the lung. PROCEDURE IN DETAIL: The patient was taken to the operating room and placed supine on the operating table. A double-lumen endotracheal tube was placed by the Anesthesia Service. Its position was confirmed using a bronchoscope. The patient was then placed in a right lateral decubitus position with left side up. The chest and flank were then prepped and draped in the usual sterile fashion. With the left lung down, an incision was made at approximately the 6th intercostal space along the posterior axillary line. Blunt dissection was carried out as the lung was stuck to the chest wall. Enough room was made to place a 2nd working port. Using blunt dissection, a fair amount of the lung was taken down from the chest wall. There was approximately 500 mL of serosanguineous fluid that was initially drained. A portion of fluid was sent to Microbiology. Adhesions were noted between the lung and the chest wall which were carefully taken down. The inferior lobe of the left lung was freed up from the underlying diaphragm. Fibrinous debris was also removed. At the completion of this dissection, both the left upper lobe and left lower lobe were completely free. No additional pockets of fluid were noted. The left chest was copiously irrigated with 3 L of warm saline solution. Strict hemostasis was assured. A straight 32-Gu[place]ian chest tube was placed and directed toward the apex. A right angle 32-[place]ian chest tube was placed and directed over the diaphragm. These were both secured to the skin using sutures. The left lung was then inflated and appeared to expand nicely under direct vision. The two incisions were then closed in layers. Sterile dressings were applied. The patient appeared to tolerate the procedure well. There were no immediate complications. He was extubated at the completion of the case and returned to the recovery room in stable condition. MMODL / IJN: [id number] / MTDD
--- NOTE | 2019-03-29 08:20 | XR ---
EXAMINATION TYPE: XR chest 1V DATE OF EXAM: 03/29/2019 COMPARISON: 03/28/2019 HISTORY: 68-year-old male postoperative left VATS with decortication. TECHNIQUE: Single frontal view of the chest is obtained. FINDINGS: Apically directed left-sided chest tube. Suspect a second left basilar drain. Diffuse interstitial pr ominence is similar. Focal right basilar opacity persists, slightly increased. Additional retrocardia c opacity similar. No appreciable pneumothorax. Heart likely mildly enlarged. IMPRESSION: 1. No appreciable pneumothorax. There appear to be 2 chest tubes on the left. 2. Low lung volumes. Bibasilar opacities persist, slightly increased on the right now.
[2019-03-29] MEDS: POLYETHYLENE GLYCOL 3350 17 GM POWD.PACK PO SCH (08:28)
[2019-03-29] MEDS: MULTIVITAMINS, THERA 1 EACH TAB PO SCH (08:28)
[2019-03-29] MEDS: HEPARIN SODIUM,PORCINE 5,000 UNIT/ML 1 ML VIAL SQ SCH ×3 (08:28→23:31)
[2019-03-29] MEDS: ATORVASTATIN 40 MG TAB PO SCH (08:29)
[2019-03-29] MEDS: ACETAMINOPHEN TAB 500 MG TAB PO PRN ×2 (08:29→20:27)
[2019-03-29] MEDS: guaiFENesin 600 MG TABLET.ER PO SCH ×2 (08:29→22:29)
[2019-03-29] MEDS: ASPIRIN 81 MG PO SCH (08:29)
[2019-03-29] MEDS: LISINOPRIL 20 MG TAB PO SCH (08:29)
--- NOTE | 2019-03-29 09:59 | P.PN ---
Subjective Progress Note Date: 03/29/19 Principal diagnosis: Left-sided parapneumonic effusion, community-acquired pneumonia, history of hypertension, hyperlipidemia, obstructive sleep apnea on home CPAP, remote history of tobacco dependence and history of daily EtOH use. POD #1 left video-assisted thorascopic surgery with decortication. The patient is sitting up to the bedside chair in no acute distress on the car diac stepdown unit. Denies any complaints of pain or shortness of breath this morning. Reports that he has been having some pain with urination and some urine retention this morning. He is urinating in his urinal is dark enriqueta in appearance. There is some subcu emphysema present to his left posterior chest. Left pleural chest tubes remain in place to low continuous wall suction -20 cm H2O. No air leak is present. Draining thin serosanguineous drainage with 160 mL output since surgery. He is achieving 5769-6973 mL on his incentive spirometry. Oxygen saturations are 96% on 4 L nasal cannula. He has a productive cough with le and red tinged sputum. Encourage the patient to be using his incentive spirometry every hour while awake and to ambulate in the hallway with assistance 2-3 times today. Pleural fluid cultures from yesterday remain pending. Laboratory results show a WBC 14.0, hemoglobin 11.6, platelet count 516 today. Objective - Vital Signs Vital signs: Vital Signs Temp 99.7 F H 03/29/19 08:00 Pulse 98 03/29/19 08:25 Resp 18 03/29/19 08:00 BP 112/70 03/29/19 08:00 Pulse Ox 95 03/29/19 08:25 Intake & Output 03/28/19 03/29/19 03/29/19 18:59 06:59 18:59 Intake Total 1590 Output Total 1550 380 Balance 40 -380 Weight 104.5 kg Intake: IV 1350 Oral 240 Output: Chest Tube Drainage 600 Chest Tube Left Posterior 600 Chest Drainage 155 Left Anterior Chest 155 Urine 800 225 Estimated Blood Loss 150 Other: Voiding Method Urinal Urinal # Voids 1 - Constitutional General appearance: Present: cooperative, no acute distress, obese - Respiratory Details: Lung sounds essentially clear to his bilateral upper lobes, diminished to his bilateral bases, few scattered crackles to his left lower lobe. No wheezes or rhonchi. Respirations are symmetrical and nonlabored. Oxygen saturation is 96% on 4 L nasal cannula. Achieving 8625-7036 mL on his incentive spirometry. Left pleural chest tubes remain in place low continuous wall suction -20 cm H2O. No air leak is present. Subcu emphysema present to his left posterior chest. - Cardiovascular Details: Regular rhythm and rate. S1 and S2 present, negative for S3, gallop or murmur. Remote telemetry showing normal sinus rhythm heart rate 93. - Gastrointestinal Gastrointestinal Comment(s): Abdomen is soft, nontender nondistended. Active bowel sounds present in all 4 abdominal quadrants. No guarding or rigidity. No organomegaly appreciated. - Genitourinary Genitourinary Comment(s): Voiding dark enriqueta urine. - Integumentary Integumentary Comment(s): Skin is warm and dry. No clubbing or cyanosis is present. Left thoracoscopic incisions clean, dry and approximated. Dressings clean and dry. - Neurologic Neurologic Comment(s): No focal deficits. Neurologic: Present: CNII-XII intact - Musculoskeletal Musculoskeletal: Present: gait normal, generalized weakness, strength equal bilaterally - Psychiatric Psychiatric: Present: A&O x's 3, appropriate affect, intact judgment & insight - Allied health notes Allied health notes reviewed: nursing - Labs CBC & Chem 7: 03/29/19 05:26 03/29/19 05:26 Labs: Abnormal Lab Results - Last 24 Hours (Table) 03/29/19 03/29/19 Range/Units 05:26 05:26 WBC 14.0 H (3.8-10.6) k/uL RBC 3.68 L (4.30-5.90) m/uL Hgb 11.6 L (13.0-17.5) gm/dL Hct 35.2 L (39.0-53.0) % Plt Count 516 H (150-450) k/uL Neutrophils # 12.2 H (1.3-7.7) k/uL Lymphocytes # 0.5 L (1.0-4.8) k/uL Glucose 137 H (74-99) mg/dL Calcium 8.0 L (8.4-10.2) mg/dL Microbiology - Last 24 Hours (Table) 03/28/19 14:44 Gram Stain - Preliminary Pleural Fluid Body Fluid Culture - Preliminary 03/28/19 14:44 Anaerobic Culture - Preliminary Pleural Fluid - Imaging and Cardiology Chest x-ray: report reviewed, image reviewed Assessment and Plan Assessment: 1. Loculated left-sided pleural effusion, status post placement of pigtail catheter, status post left VATS with decortication 2. Community-acquired pneumonia on admission, currently on Rocephin and Zithromax 3. History of hypertension 4. History of hyperlipidemia 5. Newly diagnosed obstructive sleep apnea on home CPAP 6. Previous tobacco dependence 7. Daily EtOH use Plan: 1. Keep left left pleural chest tubes in place, place to waterseal. 2. Obtain a UA with reflex culture. Postvoid residual bladder scan. 3. Wean oxygen as tolerated, bronchodilator management per pulmonary medicine recommendations. 4. Encourage use of his incentive spirometry every hour while awake. 5. Antibiotic management per pulmonary medicine. 6. Encourage increase activity. Physical and occupational therapy following. 7. GI and DVT prophylaxis. 8. Continue to follow his daily labs and chest x-rays. 9. Medical management per primary care service. 10. Lasix 20 mg IV 1 now. 11. Cytology and culture results pending from the pleural fluid. 12. We will order chest physiotherapy. 13. More recommendations to follow based on patient's clinical course. Time with Patient: Greater than 30
[2019-03-29] MEDS ORDERED: FUROSEMIDE 10 MG/ML 2 ML VIAL IV ONE (10:15)
[2019-03-29] MEDS ORDERED: VANCOMYCIN TROUGH DUE 1 EACH MISC MISCELLANE ONE (11:00)
--- NOTE | 2019-03-29 11:11 | P.PN ---
Subjective Progress Note Date: 03/29/19 Principal diagnosis: Acute community acquired left lower lobe pneumonia A pleasant 68-year-old male patient, a nonsmoker without any previous history of lung disease, comes in with pleuritic left-sided chest pain. The patient was admitted to [facility] for a graduation green party and he felt sick, he was having chills and fever and he was having pleuritic left-sided chest pain which was quite extensive. At that point, he decided to come in to the hospital. His symptoms developed within 24 hours prior to him coming to the ED. No nausea. No vomiting. He was feeling quite weak. No bronchospasm or wheezing. No hemoptysis. Some limited congested cough without any significant sputum production. No exposure to any chemicals or respiratory irritants. Initial CAT scan of the chest showed left lower lobe consolidation with some pleural thickening consistent with pneumonia and the patient was started on a combination of Rocephin and Zithromax. Over the past 24 hours, the patient's pain remains quite active. Today's chest x-ray shows some worsening in the left lower lobe consolidation. There was some effusion as noted on the chest x-ray. Ultrasound of the chest was done and the fluid was small and based on that no marking was done. Collect however, the patient is feeling better. His pain is subsiding 1 is taking [place] and Toradol for pain control. His white cell count is at 15.8. No recurrent pneumonias. No hemoptysis. No history of DVT or pulmonary embolism. The patient is seen today 03/22/2019 in follow-up on the regular medical floor. He is currently sitting up at the bedside. Awake and alert in no acute distress. He is having a little bit more left-sided chest discomfort today as compared to yesterday. He has a loose cough. Maintaining O2 saturations in the 90s on 2 L. On room air assessment he was 83%. Blood culture reveals no growth to date. Sputum culture pending. White count 15.7. Hemoglobin 12.3. Urine Legionella antigen not detected. He remains on ceftriaxone and azithromycin along with bronchodilators. He is working well with the incentive spirometer. Toradol for pain control. On 03/23/2019 patient seen in follow-up. Patient apparently developed worsening dyspnea, he was having difficulty walking, he would the desaturate into the 80s with walking even 20 feet. Follow-up chest x-ray has been reviewed showing increasing left-sided pleural effusion, with underlying atelectasis, infiltrate or mass difficult to exclude. Follow-up chest CT showed interval development of a large left-sided pleural effusion with small aerated left lung apex. Is a parapneumonic effusion, with a recent increase in size. Today's labs have been reviewed, showing white blood cell count of 16.2, hemoglobin of 13.2, influenza screen was negative, urine legionella antigen was not detected, patient is on Flomax and Rocephin for antibiotic coverage. In addition patient had some low- grade fevers last night with a temp of 100.8F. So far blood and sputum cultures remain negative, and discussed the case with interventional radiology and we has agreed to put a CT-guided pigtail chest tube catheter for drainage of the left-sided pleural effusion, and this was done this afternoon by Dr. Bates, Pleur-evac has been connected to the pigtail chest tube and there has already been 500 mL of clear yellow pleural fluid which was sent for cultures, and pleural fluid analysis. Cardiac thoracic surgery has been consulted as well for a possibility of lung decortication On 03/24/2019 patient was seen in follow-up on selective care unit, this morning patient was quite tachycardic, and was having irregular heart rhythm on auscultation, in addition he continues to be febrile, last night his fever was 102.3 Fahrenheit, EKG was ordered, and patient was placed on remote telemetry, however in view of his significant parapneumonic pleural effusion, requiring drainage, and the possibility of arrhythmia patient was transferred to the selective care unit. While on the monitor patient has been in sinus tachycardia, with occasional PACs, no A. fib was captured on the monitor strips, I could not find the EKG that was ordered this morning. Patient has denied any central chest pain, patient has put out additional 1400 cc of pleural drainage initially draining 500 mL after immediate placement of the left-sided pigtail c hest tube catheter. Follow-up chest x-ray today showed decreased but residual moderate-sized left pleural effusion with adjacent atelectasis. Patient is working on incentive spirometer, achieving 1200 on the today, lung sounds reveal diminished breath sounds over left lower lobe, with some crackles. He is on 2 L of oxygen with a pulse ox of 93%, low-grade fever this afternoon, he is hemodynamically stable. Today's labs have been reviewed, white blood cell count is down trending, 14.8, hemoglobin is 12.7, electrodes and renal profile were within normal limits. Influenza screen has been negative, urine legionella antigen has been negative. Fluid LDH was 740, revealing exudative fluid, pl eural fluid cultures are negative. On 03/27/2019 patient seen in follow-up on selective care unit. He is awake and alert, in no acute distress, left chest pigtail chest tube catheter remains in place, and there has been 1.5 L of output in the last 24 hours with significant improvement in the size of left-sided pleural effusion on today's chest x-ray. There is residual left basilar atelectasis or associated infiltrate. Patient will receive additional dose of TPA today, his surgery is on hold. No fever or chills. Pleural fluid cultures have shown no growth, sputum blood culture were negative. Patient has been on Zithromax and Rocephin, and vancomycin has been started On 03/28/2019 patient had additional 600 mL out of the left posterior pigtail chest tube catheter after another dose of alteplase that was given yesterday. Chest x-ray showed persistent left greater than right pleural effusions and associated bibasilar acute infiltrate. This was followed by CT chest without contrast knowing small residual left pleural fluid collection which has improved from prior CT chest however there is incomplete drainage of the pleural fluid collection, still showing loculated pleural effusion. And developing central and right infrahilar consolidation. In view of these findings, and persistence of loculated parapneumonic pleural effusions surgery is tentatively put the patient on a schedule Ceftin for a left VATS/possible thoracotomy with decortication by Dr. Flores. On 03/29/2019 patient seen in follow-up on selective care unit. He is awake and alert, having some mild discomfort from the postsurgical incisions. Incentive spirometry effort is 1500 today, patient has a productive cough with production of small dark bloody phlegm. Low-grade fever with a temp of 99.7 Fahrenheit, blood pressure stable. This is postop day 1 post thoracoscopic video-assisted decortication of the left lung for loculated parapneumonic effusion. 2 left- sided chest tubes are present, and there has been 600 mL out of the posterior chest tube and 155 mL out of the left anterior chest tube, thin serosanguineous fluid in the Pleur-evac. Today's labs showed a white blood cell count of 14.0, hemoglobin of 11.6, electrolytes and renal profile within normal limits. All cultures remain negative to date. Patient is on IV Rocephin, and vancomycin. Objective - Vital Signs Vital signs: Vital Signs Temp 99.7 F H 03/29/19 08:00 Pulse 98 03/29/19 08:36 Resp 18 03/29/19 08:00 BP 112/70 03/29/19 08:00 Pulse Ox 95 03/29/19 08:25 Intake & Output 03/28/19 03/29/19 03/29/19 18:59 06:59 18:59 Intake Total 1590 Output Total 1550 380 780 Balance 40 -380 -780 Weight 104.5 kg Intake: IV 1350 Oral 240 Output: Chest Tube Drainage 600 Chest Tube Left Posterior 600 Chest Drainage 155 Left Anterior Chest 155 Urine 800 225 500 Post Void Residual 280 Estimated Blood Loss 150 Other: Voiding Method Urinal Urinal # Voids 1 - Exam GENERAL EXAM: Alert, pleasant, 68-year-old white male, on 4 L of oxygen and mild amount of discomfort from the surgical incisions but no apparent distress. HEAD: Normocephalic/atraumatic. EYES: Normal reaction of pupils, equal size. Conjunctiva pink, sclera white. NOSE: Clear with pink turbinates. THROAT: No erythema or exudates. NECK: No masses, no JVD, no thyroid enlargement, no adenopathy. CHEST: No chest wall deformity. Symmetrical expansion. Left posterior and left anterior chest tubes are present with serosanguineous output in the Pleur-evac, no evidence of air leak, to wall suction LUNGS: Equal air entry with diminished breath sounds on the left, no rubs ABDOMEN: Soft, nontender. No hepatosplenomegaly, normal bowel sounds, no guarding or rigidity. EXTREMITIES: No clubbing, no edema, no cyanosis, 2+ pulses and upper and lower extremities. MUSCULOSKELETAL: Muscle strength and tone normal. SPINE: No scoliosis or deformity SKIN: No rashes CENTRAL NERVOUS SYSTEM: Alert and oriented -3. No focal deficits, tone is normal in all 4 extremities. PSYCHIATRIC: Alert and oriented -3. Appropriate affect. Intact judgment and insight. - Labs CBC & Chem 7: 03/29/19 05:26 03/29/19 05:26 Labs: Abnormal Lab Results - Last 24 Hours (Table) 03/29/19 03/29/19 Range/Units 05:26 05:26 WBC 14.0 H (3.8-10.6) k/uL RBC 3.68 L (4.30-5.90) m/uL Hgb 11.6 L (13.0-17.5) gm/dL Hct 35.2 L (39.0-53.0) % Plt Count 516 H (150-450) k/uL Neutrophils # 12.2 H (1.3-7.7) k/uL Lymphocytes # 0.5 L (1.0-4.8) k/uL Glucose 137 H (74-99) mg/dL Calcium 8.0 L (8.4-10.2) mg/dL Microbiology - Last 24 Hours (Table) 03/28/19 14:44 Gram Stain - Preliminary Pleural Fluid Body Fluid Culture - Preliminary 03/28/19 14:44 Anaerobic Culture - Preliminary Pleural Fluid Assessment and Plan Plan: Assessment: 1 acute left lower lobe community-acquired pneumonia complicated by a parapneumonic effusion, complicated, status post thoracoscopic decortication of the left lung, postoperative day 1. 2 acute hypoxic respiratory failure, improving 3 acute febrile illness secondary left lower lobe pneumonia, improved 4 acute leukocytosis secondary to above, improving 5 hypertension 6 hyperlipidemia 7 obstructive sleep apnea with an AHI of 9 and the patient was started on CPAP therapy Plan: Continue with deep breathing and coughing, incentive spirometry use, maintain pain control. Continue current antibiotics, all cultures remain negative to date. Patient is currently on combination of Rocephin and vancomycin. Continue nebulized bronchodilators, today's chest x-ray has been reviewed showing no pneumothorax, low lung volumes with bibasilar opacities and interstitial prominence. Will await the results of the final cultures. Continue pulmonary toileting. I performed a history & physical examination of the patient and discussed their management with my nurse practitioner, Manda Preston. I reviewed the nurse practitioner's note and agree with the documented findings and plan of care. Lung sounds are positive for diminished sounds over left lung. The findings and the impression was discussed with the patient. I attest to the documentation by the nurse practitioner. Time with Patient: Less than 30
[2019-03-29 12:14] LABS: Appearance,Urine Cloudy (Clear); Bacteria,Urine Rare /hpf; Bilirubin,Urine Negative (Negative); Blood,Urine Large (Negative); Color,Urine Light Red; Glucose,Urine (UA) Negative (Negative); Ketones,Urine Negative (Negative); Leukocyte Esterase,Urine Negative (Negative); Mucus,Urine Rare /hpf; Nitrite,Urine Negative (Negative); Protein,Urine Trace (Negative); RBC,Urine >182 /hpf (0-5); Specific Gravity,Urine 1.011 (1.001-1.035); Urobilinogen,Urine <2.0 mg/dL (<2.0)
--- NOTE | 2019-03-29 16:08 | P.PN ---
Subjective Progress Note Date: 03/29/19 (Delayed charting seen at 0930) Principal diagnosis: Shortness of breath Patient is a 68-year-old male past medical history of hypertension, dyslipidemia, and remote tobacco abuse who presented to the emergency department with complaints of back pain, coughing, and thick yellow sputum. In the emergency department he initially underwent a chest x-ray which showed ate lectasis versus pneumonia at the left base. He underwent a KUB which showed scattered air-fluid levels. He then underwent a CT chest/abdomen/pelvis. This demonstrated a left lower lobe consolidation with associated pleural effusion. Abdomen and pelvis was unremarkable. Laboratory analysis showed elevated white blood cell count 13.8. His initial temperature was 103 and then peaked at 104.7. He was started on IV fluids, antibiotics, and arrangements were made for admission for community-acquired pneumonia with sepsis. He was started on Rocephin and Zithromax. Repeat chest x-ray on 03/21 showed progressively worsening small to moderate left pleural effusion. This was followed by chest u ltrasound which did not demonstrate significant effusion. Pulmonary was consulted who agreed with continuing Rocephin and Zithromax. Patient dyspnea worsened. Repeat chest x-ray on the morning of 03/23 showed worsening pleural effusion. Patient underwent CT of the chest that showed a large left-sided pleural effusion. He subsequently had a pigtail catheter placed. Still with pleural effusion on chest x-ray on 03/24 and altaplase instilled with good results. Altaplase again instilled on 03/25 without return of fluid initially but then had good return of fluid later that night. instilled again on 03/26 and 03/27. Still with significant effusion on 03/28. He underwent VATS with decortication. Patient seen and examined at bedside. Having slight pain today, breathing he states feels better than yesterday, no nausea, no vomiting, still no bowel movement took MiraLAX today. Objective - Vital Signs Vital signs: Vital Signs Temp 99 F 03/29/19 11:47 Pulse 89 03/29/19 12:33 Resp 18 03/29/19 12:00 BP 119/78 03/29/19 11:47 Pulse Ox 94 L 03/29/19 11:47 Intake & Output 03/28/19 03/29/19 03/29/19 18:59 06:59 18:59 Intake Total 1590 Output Total 5195 684 5700 Balance 40 -380 -1680 Weight 104.5 kg Intake: IV 1350 Oral 240 Output: Chest Tube Drainage 600 Chest Tube Left Posterior 600 Chest Drainage 155 Left Anterior Chest 155 Urine 338 810 9292 Post Void Residual 280 Estimated Blood Loss 150 Other: Voiding Method Urinal Urinal # Voids 1 - Exam General: ill appearing, no distress, appears at stated age, sunken eyes Derm: warm, dry Head: atraumatic, normocephalic, symmetric Eyes: EOMI, no lid lag, anicteric sclera Mouth: no lip lesion, mucus membranes moist Cardiovascular: S1S2, no murmur, positive posterior tibial pulse bilateral, Lungs: Decreased breath sounds bilateral, no rhonchi, no rales , no accessory muscle use Abdominal: soft, nontender to palpation, no guarding, no appreciable organomegaly Ext: no gross muscle atrophy, trace edema, no contractures Neuro: CN II-XI grossly intact, no focal neuro deficits Psych: Alert, oriented, appropriate affect - Labs CBC & Chem 7: 03/29/19 05:26 03/29/19 05:26 Labs: Abnormal Lab Results - Last 24 Hours (Table) 03/29/19 03/29/19 03/29/19 Range/Units 05:26 05:26 09:35 WBC 14.0 H (3.8-10.6) k/uL RBC 3.68 L (4.30-5.90) m/uL Hgb 11.6 L (13.0-17.5) gm/dL Hct 35.2 L (39.0-53.0) % Plt Count 516 H (150-450) k/uL Neutrophils # 12.2 H (1.3-7.7) k/uL Lymphocytes # 0.5 L (1.0-4.8) k/uL Glucose 137 H (74-99) mg/dL Calcium 8.0 L (8.4-10.2) mg/dL Urine Protein Trace H (Negative) Urine Blood Large H (Negative) Urine RBC >182 H (0-5) /hpf Urine Bacteria Rare H (None) /hpf Urine Mucus Rare H (None) /hpf Microbiology - Last 24 Hours (Table) 03/28/19 14:44 Gram Stain - Preliminary Pleural Fluid Body Fluid Culture - Preliminary 03/28/19 14:44 Anaerobic Culture - Preliminary Pleural Fluid Assessment and Plan Assessment: Left lower lobe community-acquired pneumonia, bacterial probable staph or strep, with sepsis with associated Loculated left-sided pleural effusion status post VATS 03/28 -Cardiovascular thoracic surgery recs - continue with rocephin and vanco -Pulmonary recs - Aerobic and Anerobic cultures negative - bronchodilators -Cardiothoracic surgery recommendations -Pulmonary hygiene, Mucinex -IV fluids completed Acute hypoxic respiratory failure, improving -Continue to wean oxygen as able Hypertension, improved -Continue lisinopril 40 mg -Follow blood pressure Dyslipidemia -Continue statin Anemia, dilutional - follow CBC CONNOR - CPAP DVT prophylaxis: Early ambulation, heparin Discussed with: Patient, nursing, Anticipated discharge: 2-[address]: Home vs A total of 25 minutes was spent on the care of this complex patient more than 50% of the time was spent in counseling and care coordination.
[2019-03-29] MEDS: SENNOSIDES 8.6 MG TAB PO SCH (22:28)
[2019-03-30] MEDS: HYDROcodone/APAP 5-325MG 1 EACH TAB PO PRN (01:42)
[2019-03-30] MEDS: IPRATROPIUM-ALBUTEROL 3 ML NEB INHALATION SCH ×5 (03:45→20:32)
[2019-03-30] MEDS: ACETAMINOPHEN TAB 500 MG TAB PO PRN ×2 (04:08→10:04)
[2019-03-30 06:02] LABS: HCT 33.1 % (39.0-53.0); HGB 10.8 gm/dL (13.0-17.5); MCHC 32.5 g/dL (31.0-37.0); MCV 95.4 fL (80.0-100.0); Mean Platelet Volume 6.9; Platelet Count 544 k/uL (150-450); RBC 3.47 m/uL (4.30-5.90); RDW 13.8 % (11.5-15.5); WBC 12.1 k/uL (3.8-10.6)
[2019-03-30 06:10] LABS: African American GFR (CKD) >90 (>60 ml/min/1.73 sqM); Anion Gap 4 mmol/L; Blood Urea Nitrogen 10 mg/dL (9-20); Calcium 8.3 mg/dL (8.4-10.2); Carbon Dioxide 29 mmol/L (22-30); Chloride 107 mmol/L (98-107); Glucose 143 mg/dL (74-99); Potassium 3.9 mmol/L (3.5-5.1); Sodium 140 mmol/L (137-145)
[2019-03-30] MEDS: PANTOPRAZOLE 40 MG TABLET PO SCH (06:33)
[2019-03-30] MEDS ORDERED: FUROSEMIDE 10 MG/ML 2 ML VIAL IV STA (08:02)
--- NOTE | 2019-03-30 08:31 | XR ---
EXAMINATION TYPE: XR chest 2V DATE OF EXAM: 03/30/2019 COMPARISON: 03/29/2019 HISTORY: Shortness of breath TECHNIQUE: Frontal and lateral views of the chest are obtained. FINDINGS: 2 left-sided chest tubes are again noted. No evidence for sizable pneumothorax. Basilar atelectasis and/or infiltrates persist. Improving aeration left lung base. Heart size is stable. Mediastinal structures are stable and grossly unremarkable. No evidence for hilar prominence. Degenerative changes dorsal spine. IMPRESSION: 1. 2 left-sided chest tubes are again noted. No evidence for sizable pneumothorax. 2. Basilar atelectasis and/or infiltrates persist. Improving aeration left lung base.
--- NOTE | 2019-03-30 09:26 | P.PN ---
Subjective Progress Note Date: 03/30/19 Principal diagnosis: Left-sided parapneumonic effusion, community-acquired pneumonia, history of hypertension, hyperlipidemia, obstructive sleep apnea on home CPAP, remote history of tobacco dependence and history of daily EtOH use. POD #2 left video-assisted thorascopic surgery with decortication. The patient is sitting up to the bedside chair on the cardiac stepdown unit. He is in no acute distress. He denies any further complaints of pain with urination or any more blood in his urine. Complaining of surgical type pain to his left chest tube insertion sites. Oxygen saturation is 92% on room air and he is achieving 1500 mL on his incentive spirometry. This pleural fluid cultures remain pending, although less far no organism is identified. Remains on IV antibiotics Rocephin and vancomycin managed by primary care service. Left pleural chest tubes remain in place to water seal. No air leak is present. Draining thin serosanguineous drainage with 50 mL output in the last 24 hours. The patient reports he is feeling much better today. He has been ambulating in the cardiac stepdown unit hallway with minimal assist. Remains having a productive cough with frothy white sputum. Laboratory results this morning show a WBC count of 4.1, Hgb 10.8, platelets 544, BUN 10, creatinine 0.85. Objective - Vital Signs Vital signs: Vital Signs Temp 99.1 F 03/30/19 04:00 Pulse 92 03/30/19 07:45 Resp 16 03/30/19 04:00 BP 146/79 03/30/19 04:00 Pulse Ox 97 03/30/19 04:00 Intake & Output 03/29/19 03/30/19 03/30/19 18:59 06:59 18:59 Intake Total 410 222 Output Total 2480 901 Balance -2069 Intake: Oral 410 222 Output: Chest Tube Drainage 26 Chest Tube Left Upper 26 Lateral Chest Urine 2200 875 Post Void Residual 280 Other: Voiding Method Urinal Urinal - Constitutional General appearance: Present: cooperative, no acute distress, obese - Respiratory Details: Lung sounds with few scattered crackles throughout, diminished to his left lower lobe. No rhonchi or wheezes. Respirations are symmetrical and nonlabored. Oxygen saturation 92% on room air. Achieving 1500 mL on his incentive spirometry. Left pleural chest tubes in place to water seal. Draining thin serosanguineous drainage with 50 mL output in the last 24 hours. No air leak is present. - Cardiovascular Details: Regular rhythm and rate. S1 and S2 present, negative for S3, gallop or murmur. +1 edema to his bilateral lower extremities. Remote telemetry showing normal sinus rhythm heart rate 84. - Gastrointestinal Gastrointestinal Comment(s): Abdomen is soft, nontender and nondistended. Active bowel sounds present in all 4 abdominal quadrants. No guarding or rigidity. No organomegaly appreciated. - Genitourinary Genitourinary Comment(s): Voiding clear yellow urine. - Integumentary Integumentary Comment(s): Skin is warm and dry. No clubbing or cyanosis is present. No rash or abnormal pigmentation is present. Left thoracoscopic incision sites clean, dry and ap proximated. No drainage or redness is present. Dressings clean, dry and intact to left chest tube insertion sites. - Neurologic Neurologic Comment(s): No focal deficits. Neurologic: Present: CNII-XII intact - Musculoskeletal Musculoskeletal: Present: gait normal, generalized weakness, strength equal bilaterally - Psychiatric Psychiatric: Present: A&O x's 3, appropriate affect, intact judgment & insight - Allied health notes Allied health notes reviewed: nursing - Labs CBC & Chem 7: 03/30/19 05:35 03/30/19 05:35 Labs: Abnormal Lab Results - Last 24 Hours (Table) 03/29/19 03/30/19 03/30/19 Range/Units 09:35 05:35 05:35 WBC 12.1 H (3.8-10.6) k/uL RBC 3.47 L (4.30-5.90) m/uL Hgb 10.8 L (13.0-17.5) gm/dL Hct 33.1 L (39.0-53.0) % Plt Count 544 H (150-450) k/uL Glucose 143 H (74-99) mg/dL Calcium 8.3 L (8.4-10.2) mg/dL Urine Protein Trace H (Negative) Urine Blood Large H (Negative) Urine RBC >182 H (0-5) /hpf Urine Bacteria Rare H (None) /hpf Urine Mucus Rare H (None) /hpf Microbiology - Last 24 Hours (Table) 03/28/19 14:44 Gram Stain - Preliminary Pleural Fluid Body Fluid Culture - Preliminary - Imaging and Cardiology Chest x-ray: image reviewed Assessment and Plan Assessment: 1. Loculated left-sided pleural effusion, status post placement of pigtail catheter, status post left VATS with decortication 2. Community-acquired pneumonia on admission, currently on Rocephin and Zithromax 3. History of hypertension 4. History of hyperlipidemia 5. Newly diagnosed obstructive sleep apnea on home CPAP 6. Previous tobacco dependence 7. Daily EtOH use Plan: 1. Remove left pleural chest tubes. 2. Lasix 20 mg IV 1 now. 3. Bronchodilator management per pulmonary medicine recommendations. 4. Encourage use of his incentive spirometry every hour while awake. 5. Antibiotic management per primary care service. Currently on Rocephin and vancomycin. 6. Encourage increase activity. Physical and occupational therapy following. 7. GI and DVT prophylaxis. 8. Continue to follow his daily labs and chest x-rays. 9. Medical management per primary care service. 10. Continue chest physiotherapy 11. Cytology and culture final results pending from the pleural fluid. 12. More recommendations to follow based on patient's clinical course. Time with Patient: Greater than 30
[2019-03-30] MEDS: HEPARIN SODIUM,PORCINE 5,000 UNIT/ML 1 ML VIAL SQ SCH ×3 (09:57→23:36)
[2019-03-30] MEDS: ASPIRIN 81 MG PO SCH (10:05)
[2019-03-30] MEDS: guaiFENesin 600 MG TABLET.ER PO SCH ×2 (10:06→21:41)
[2019-03-30] MEDS: MULTIVITAMINS, THERA 1 EACH TAB PO SCH (10:06)
[2019-03-30] MEDS: ATORVASTATIN 40 MG TAB PO SCH (10:06)
[2019-03-30] MEDS: LISINOPRIL 20 MG TAB PO SCH (10:06)
[2019-03-30] MEDS: POLYETHYLENE GLYCOL 3350 17 GM POWD.PACK PO SCH (10:09)
--- NOTE | 2019-03-30 12:44 | P.PN ---
Subjective Progress Note Date: 03/30/19 Principal diagnosis: Acute community acquired left lower lobe pneumonia A pleasant 68-year-old male patient, a nonsmoker without any previous history of lung disease, comes in with pleuritic left-sided chest pain. The patient was admitted to [facility] for a graduation libertarian and he felt sick, he was having chills and fever and he was having pleuritic left-sided chest pain which was quite extensive. At that point, he decided to come in to the hospital. His symptoms developed within 24 hours prior to him coming to the ED. No nausea. No vomiting. He was feeling quite weak. No bronchospasm or wheezing. No hemoptysis. Some limited congested cough without any significant sputum production. No exposure to any chemicals or respiratory irritants. Initial CAT scan of the chest showed left lower lobe consolidation with some pleural thickening consistent with pneumonia and the patient was started on a combination of Rocephin and Zithromax. Over the past 24 hours, the patient's pain remains quite active. Today's chest x-ray shows some worsening in the left lower lobe consolidation. There was some effusion as noted on the chest x-ray. Ultrasound of the chest was done and the fluid was small and based on that no marking was done. Collect however, the patient is feeling better. His pain is subsiding 1 is taking [place] and Toradol for pain control. His white cell count is at 15.8. No recurrent pneumonias. No hemoptysis. No history of DVT or pulmonary embolism. The patient is seen today 03/22/2019 in follow-up on the regular medical floor. He is currently sitting up at the bedside. Awake and alert in no acute distress. He is having a little bit more left-sided chest discomfort today as compared to yesterday. He has a loose cough. Maintaining O2 saturations in the 90s on 2 L. On room air assessment he was 83%. Blood culture reveals no growth to date. Sputum culture pending. White count 15.7. Hemoglobin 12.3. Urine Legionella antigen not detected. He remains on ceftriaxone and azithromycin along with bronchodilators. He is working well with the incentive spirometer. Toradol for pain control. On 03/23/2019 patient seen in follow-up. Patient apparently developed worsening dyspnea, he was having difficulty walking, he would the desaturate into the 80s with walking even 20 feet. Follow-up chest x-ray has been reviewed showing increasing left-sided pleural effusion, with underlying atelectasis, infiltrate or mass difficult to exclude. Follow-up chest CT showed interval development of a large left-sided pleural effusion with small aerated left lung apex. Is a parapneumonic effusion, with a recent increase in size. Today's labs have been reviewed, showing white blood cell count of 16.2, hemoglobin of 13.2, influenza screen was negative, urine legionella antigen was not detected, patient is on Flomax and Rocephin for antibiotic coverage. In addition patient had some low- grade fevers last night with a temp of 100.8F. So far blood and sputum cultures remain negative, and discussed the case with interventional radiology and we has agreed to put a CT-guided pigtail chest tube catheter for drainage of the left-sided pleural effusion, and this was done this afternoon by Dr. Bates, Pleur-evac has been connected to the pigtail chest tube and there has already been 500 mL of clear yellow pleural fluid which was sent for cultures, and pleural fluid analysis. Cardiac thoracic surgery has been consulted as well for a possibility of lung decortication On 03/24/2019 patient was seen in follow-up on selective care unit, this morning patient was quite tachycardic, and was having irregular heart rhythm on auscultation, in addition he continues to be febrile, last night his fever was 102.3 Fahrenheit, EKG was ordered, and patient was placed on remote telemetry, however in view of his significant parapneumonic pleural effusion, requiring drainage, and the possibility of arrhythmia patient was transferred to the selective care unit. While on the monitor patient has been in sinus tachycardia, with occasional PACs, no A. fib was captured on the monitor strips, I could not find the EKG that was ordered this morning. Patient has denied any central chest pain, patient has put out additional 1400 cc of pleural drainage initially draining 500 mL after immediate placement of the left-sided pigtail c hest tube catheter. Follow-up chest x-ray today showed decreased but residual moderate-sized left pleural effusion with adjacent atelectasis. Patient is working on incentive spirometer, achieving 1200 on the today, lung sounds reveal diminished breath sounds over left lower lobe, with some crackles. He is on 2 L of oxygen with a pulse ox of 93%, low-grade fever this afternoon, he is hemodynamically stable. Today's labs have been reviewed, white blood cell count is down trending, 14.8, hemoglobin is 12.7, electrodes and renal profile were within normal limits. Influenza screen has been negative, urine legionella antigen has been negative. Fluid LDH was 740, revealing exudative fluid, pl eural fluid cultures are negative. On 03/27/2019 patient seen in follow-up on selective care unit. He is awake and alert, in no acute distress, left chest pigtail chest tube catheter remains in place, and there has been 1.5 L of output in the last 24 hours with significant improvement in the size of left-sided pleural effusion on today's chest x-ray. There is residual left basilar atelectasis or associated infiltrate. Patient will receive additional dose of TPA today, his surgery is on hold. No fever or chills. Pleural fluid cultures have shown no growth, sputum blood culture were negative. Patient has been on Zithromax and Rocephin, and vancomycin has been started On 03/28/2019 patient had additional 600 mL out of the left posterior pigtail chest tube catheter after another dose of alteplase that was given yesterday. Chest x-ray showed persistent left greater than right pleural effusions and associated bibasilar acute infiltrate. This was followed by CT chest without contrast knowing small residual left pleural fluid collection which has improved from prior CT chest however there is incomplete drainage of the pleural fluid collection, still showing loculated pleural effusion. And developing central and right infrahilar consolidation. In view of these findings, and persistence of loculated parapneumonic pleural effusions surgery is tentatively put the patient on a schedule Ceftin for a left VATS/possible thoracotomy with decortication by Dr. Flores. On 03/29/2019 patient seen in follow-up on selective care unit. He is awake and alert, having some mild discomfort from the postsurgical incisions. Incentive spirometry effort is 1500 today, patient has a productive cough with production of small dark bloody phlegm. Low-grade fever with a temp of 99.7 Fahrenheit, blood pressure stable. This is postop day 1 post thoracoscopic video-assisted decortication of the left lung for loculated parapneumonic effusion. 2 left- sided chest tubes are present, and there has been 600 mL out of the posterior chest tube and 155 mL out of the left anterior chest tube, thin serosanguineous fluid in the Pleur-evac. Today's labs showed a white blood cell count of 14.0, hemoglobin of 11.6, electrolytes and renal profile within normal limits. All cultures remain negative to date. Patient is on IV Rocephin, and vancomycin. On 03/30/2019 patient seen in follow-up on selective care unit, he is awake and alert, he is off the oxygen today is pulse ox is 90%, incentive spirometry effort is around 1500 mL. He states he is breathing easier, although still having some left-sided chest discomfort from his incisions and chest tube placements. His been afebrile, so far microbiology results pleural fluid blood and sputum cultures are negative. He is on Rocephin and vancomycin. There has been minimal output from the left posterior and anterior chest tubes in the last 24 hours, chest tubes have been placed to waterseal. This morning's chest x-ray shows no evidence of pneumothorax, and some basilar atelectasis, and improving aeration at the left lung base. Objective - Vital Signs Vital signs: Vital Signs Temp 98.7 F 03/30/19 08:20 Pulse 92 03/30/19 11:21 Resp 18 03/30/19 08:20 BP 129/76 03/30/19 08:20 Pulse Ox 90 L 03/30/19 08:20 Intake & Output 03/29/19 03/30/19 03/30/19 18:59 06:59 18:59 Intake Total 410 222 480 Output Total 2480 901 400 Balance -2069 -9 80 Intake: Oral 410 222 480 Output: Chest Tube Drainage 26 Chest Tube Left Upper 26 Lateral Chest Urine 2200 875 400 Post Void Residual 280 Other: Voiding Method Urinal Urinal Urinal # Voids 1 - Exam GENERAL EXAM: Alert, pleasant, 68-year-old white male, on room air and mild amount of discomfort from the surgical incisions but no apparent distress. HEAD: Normocephalic/atraumatic. EYES: Normal reaction of pupils, equal size. Conjunctiva pink, sclera white. NOSE: Clear with pink turbinates. THROAT: No erythema or exudates. NECK: No masses, no JVD, no thyroid enlargement, no adenopathy. CHEST: No chest wall deformity. Symmetrical expansion. Left posterior and left anterior chest tubes are present with serosanguineous output in the Pleur-evac, no evidence of air leak, to waterseal LUNGS: Equal air entry with diminished breath sounds on the left, no rubs ABDOMEN: Soft, nontender. No hepatosplenomegaly, normal bowel sounds, no guarding or rigidity. EXTREMITIES: No clubbing, no edema, no cyanosis, 2+ pulses and upper and lower extremities. MUSCULOSKELETAL: Muscle strength and tone normal. SPINE: No scoliosis or deformity SKIN: No rashes CENTRAL NERVOUS SYSTEM: Alert and oriented -3. No focal deficits, tone is normal in all 4 extremities. PSYCHIATRIC: Alert and oriented -3. Appropriate affect. Intact judgment and insight. - Labs CBC & Chem 7: 03/30/19 05:35 03/30/19 05:35 Labs: Abnormal Lab Results - Last 24 Hours (Table) 03/30/19 03/30/19 Range/Units 05:35 05:35 WBC 12.1 H (3.8-10.6) k/uL RBC 3.47 L (4.30-5.90) m/uL Hgb 10.8 L (13.0-17.5) gm/dL Hct 33.1 L (39.0-53.0) % Plt Count 544 H (150-450) k/uL Glucose 143 H (74-99) mg/dL Calcium 8.3 L (8.4-10.2) mg/dL Microbiology - Last 24 Hours (Table) 03/28/19 14:44 Gram Stain - Preliminary Pleural Fluid Body Fluid Culture - Preliminary Assessment and Plan Plan: Assessment: 1 acute left lower lobe community-acquired pneumonia complicated by a parapneumonic effusion, complicated, status post thoracoscopic decortication of the left lung, postoperative day 2. 2 acute hypoxic respiratory failure, improving 3 acute febrile illness secondary left lower lobe pneumonia, improved 4 acute leukocytosis secondary to above, improving 5 hypertension 6 hyperlipidemia 7 obstructive sleep apnea with an AHI of 9 and the patient was started on CPAP therapy Plan: Today's chest x-ray shows improvement in aeration of the left lower lobe, patient remains afebrile, all cultures remain negative to date. Room air pulse ox is 90%, patient has been tolerating ambulation, deep breathing and coughing, maintained control, encourage deep breathing and coughing, anticipate removal of the left-sided chest tubes today. I performed a history & physical examination of the patient and discussed their management with my nurse practitioner, Manda Preston. I reviewed the nurse practitioner's note and agree with the documented findings and plan of care. Lung sounds are positive for diminished sounds over left lung. The findings and the impression was discussed with the patient. I attest to the documentation by the nurse practitioner. Time with Patient: Less than 30
[2019-03-30] MEDS: VANCOMYCIN 2,000 MG in SODIUM CHLORIDE 0.9% 500 ML 500 ML IVPB SCH ×2 (13:01→23:43)
--- NOTE | 2019-03-30 13:33 | P.PN ---
Subjective Progress Note Date: 03/30/19 Principal diagnosis: Shortness of breath Patient was seen and examined. No acute events overnight. Patient reports some left-sided chest discomfort at the site of chest tubes. Tube was pulled out by cardiothoracic team today. Patient reports considerable improvement in his b reathing since admission. T-max 100.5 Fahrenheit 03/29/2019. He denies any palpitations. No nausea or vomiting. Objective - Vital Signs Vital signs: Vital Signs Temp 98.7 F 03/30/19 08:20 Pulse 92 03/30/19 11:21 Resp 18 03/30/19 08:20 BP 129/76 03/30/19 08:20 Pulse Ox 90 L 03/30/19 08:20 Intake & Output 03/29/19 03/30/19 03/30/19 18:59 06:59 18:59 Intake Total 410 222 480 Output Total 2480 901 1950 Balance -8144 -588 -2080 Intake: Oral 410 222 480 Output: Chest Tube Drainage 26 Chest Tube Left Upper 26 Lateral Chest Urine 2200 875 1950 Post Void Residual 280 Other: Voiding Method Urinal Urinal Urinal # Voids 1 - Exam General: [non toxic], [no distress], [appears at stated age] Derm: [warm], [dry] Head: [atraumatic], [normocephalic], [symmetric] Eyes: [EOMI], [no lid lag], [anicteric sclera] Mouth: [no lip lesion], [mucus membranes moist] Cardiovascular: [S1S2 reg], [tachycardia], [positive posterior tibial pulse bilateral], [left-sided chest dressing clean dry and intact] Lungs: [Decreased breath sounds on the left side], [no rhonchi, no rales] , [no accessory muscle use] Abdominal: [soft], [ nontender to palpation], [no guarding], [no appreciable organomegaly] Ext: [no gross muscle atrophy], [no edema], [no contractures] Neuro: [no focal neuro deficits] Psych: [Alert], [oriented], [appropriate affect] - Labs CBC & Chem 7: 03/30/19 05:35 03/30/19 05:35 Labs: Abnormal Lab Results - Last 24 Hours (Table) 03/30/19 03/30/19 Range/Units 05:35 05:35 WBC 12.1 H (3.8-10.6) k/uL RBC 3.47 L (4.30-5.90) m/uL Hgb 10.8 L (13.0-17.5) gm/dL Hct 33.1 L (39.0-53.0) % Plt Count 544 H (150-450) k/uL Glucose 143 H (74-99) mg/dL Calcium 8.3 L (8.4-10.2) mg/dL Microbiology - Last 24 Hours (Table) 03/28/19 14:44 Gram Stain - Preliminary Pleural Fluid Body Fluid Culture - Preliminary Assessment and Plan Assessment: Left lower lobe community-acquired pneumonia, likely bacterial staph or strep, with sepsis and associated loculated left-sided pleural effusion status post VATS Urinary retention Acute hypoxic respiratory failure Hypertension Dyslipidemia Anemia CONNOR Left-sided chest tube discontinued today. Plans: Continue vancomycin and ceftriaxone. Follow pleural cultures. O2 per NC to maintain O2 saturation greater than 92%. Intermittent Lasix per cardiothoracic surgery. DuoNeb as needed for shortness of breath and wheezing. Telemetry monitoring. Incentive spirometry. Continue Mucinex. Repeat chest x-ray tomorrow morning. Pulmonology and cardiothoracic surgery following. Retention after pulling Evans catheter. Plans: Intermittent bladder scan. Start Flomax daily. Plans: Management as above BP 129/76. Plans: Continue lisinopril. Monitor vitals, adjust medications as necessary. Plans: Start Lipitor. Likely dilutional and some acute blood loss. Plans: Daily CBC. Transfuse if hemoglobin less than 7. Plans: CPAP. [Patient admitted for left lower lobe pneumonia with loculated left-sided pleural effusion status post VATS 03/28/2019. Chest tubes removed today. Cardiothoracic surgery and pulmonology following. On IV antibiotics pending cultures. Likely DC in 1-2 days.]
[2019-03-30] MEDS: TAMSULOSIN 0.4 MG CAP.ER.24H PO SCH (17:43)
[2019-03-30] MEDS: SENNOSIDES 8.6 MG TAB PO SCH (21:39)
[2019-03-31] MEDS: IPRATROPIUM-ALBUTEROL 3 ML NEB INHALATION SCH ×4 (01:20→11:48)
[2019-03-31 06:21] LABS: Basophils # (A) 0.1 k/uL (0-0.2); Basophils % (A) 1 %; Eosinophils # (A) 0.5 k/uL (0-0.7); Eosinophils % (A) 5 %; HCT 35.5 % (39.0-53.0); HGB 11.4 gm/dL (13.0-17.5); Lymphocytes # (A) 0.8 k/uL (1.0-4.8); Lymphocytes % (A) 7 %; MCH 30.5 pg (25.0-35.0); MCHC 32.2 g/dL (31.0-37.0); MCV 94.7 fL (80.0-100.0); Mean Platelet Volume 7.2; Monocytes # (A) 0.6 k/uL (0-1.0); Monocytes % (A) 6 %; Neutrophils # (A) 8.1 k/uL (1.3-7.7); Neutrophils % (A) 79 %; Platelet Count 604 k/uL (150-450); RBC 3.75 m/uL (4.30-5.90); WBC 10.2 k/uL (3.8-10.6)
[2019-03-31 06:31] LABS: ALT 255 U/L (21-72); AST 106 U/L (17-59); African American GFR (CKD) >90 (>60 ml/min/1.73 sqM); Albumin 2.7 g/dL (3.5-5.0); Alkaline Phosphatase 147 U/L (38-126); Anion Gap 8 mmol/L; Blood Urea Nitrogen 9 mg/dL (9-20); Calcium 8.7 mg/dL (8.4-10.2); Carbon Dioxide 27 mmol/L (22-30); Chloride 104 mmol/L (98-107); Glucose 112 mg/dL (74-99); Potassium 4.2 mmol/L (3.5-5.1); Sodium 139 mmol/L (137-145); Total Bilirubin 0.3 mg/dL (0.2-1.3); Total Protein 5.3 g/dL (6.3-8.2)
[2019-03-31] MEDS: PANTOPRAZOLE 40 MG TABLET PO SCH (06:51)
--- NOTE | 2019-03-31 07:55 | XR ---
EXAMINATION TYPE: XR chest 2V DATE OF EXAM: 03/31/2019 COMPARISON: Chest x-ray from yesterday. CT chest from 3 days ago. HISTORY: Left-sided chest tube removed yesterday. TECHNIQUE: Frontal and lateral views of the chest are obtained. FINDINGS: Interval removal of left-sided chest tubes. No pneumothorax is evident. No new mediastinal shift. There is persistent left lateral lower wall subcutaneous emphysema. There is persistent small left pleural effusion or pleural fluid collection. There is bibasilar atelectasis and/or infiltrate r edemonstrated. Cardiac silhouette size is stable and mildly enlarged. Osseous structures are intact. Overlying EKG leads are present IMPRESSION: Interval removal of left-sided chest 2, no pneumothorax. Persistent small left pleural f luid collection. Persistent left greater than right bibasilar acute atelectasis and/or infiltrate.
--- NOTE | 2019-03-31 08:29 | P.PN ---
Subjective Progress Note Date: 03/31/19 Principal diagnosis: Left-sided parapneumonic effusion, community-acquired pneumonia, history of hypertension, hyperlipidemia, obstructive sleep apnea on home CPAP, remote history of tobacco dependence and history of daily EtOH use. POD #3 left video-assisted thorascopic surgery with decortication. The patient's currently sitting up in bed in no acute distress. States pain is well-controlled, denies shortness of breath. Ambulated in the hallway yesterday. Tolerating diet. Chest tubes were discontinued yesterday, chest x- ray this morning is stable. Complains of inability to sleep, otherwise no new concerns. Objective - Vital Signs Vital signs: Vital Signs Temp 98.5 F 03/31/19 07:34 Pulse 91 03/31/19 07:34 Resp 14 03/31/19 07:34 BP 159/90 03/31/19 07:34 Pulse Ox 94 L 03/31/19 07:34 Intake & Output 03/30/19 03/31/19 03/31/19 18:59 06:59 18:59 Intake Total 702 Output Total 3150 2600 Balance -2448 -2600 Weight 104.5 kg Intake: Oral 702 Output: Urine 3150 2600 Other: Voiding Method Urinal Urinal # Voids 2 2 - Constitutional General appearance: Present: cooperative, no acute distress, obese - Respiratory Details: Lungs sounds diminished bilaterally. Respirations even, nonlabored. Currently on room air saturation 92%. Able to achieve 1500 mL on his incentive spirometry. - Cardiovascular Details: S1, S2 present. Regular rate and rhythm, sinus rhythm on telemetry. Palpable peripheral pulses bilaterally. 1-2+ bilateral lower extremity edema. No calf pain or tenderness noted. SCDs present. - Gastrointestinal Gastrointestinal Comment(s): Abdomen soft, nontender, nondistended. Active bowel sounds present 4 quadrants. Tolerating diet. - Genitourinary Genitourinary Comment(s): Continues to void clear, yellow urine. - Integumentary Integumentary Comment(s): Skin is warm and dry with evidence of good perfusion. Left previous chest tube site covered with dry intact dressing. - Neurologic Neurologic: Present: CNII-XII intact - Musculoskeletal Musculoskeletal: Present: gait normal, strength equal bilaterally - Psychiatric Psychiatric: Present: A&O x's 3, appropriate affect, intact judgment & insight - Allied health notes Allied health notes reviewed: nursing - Labs CBC & Chem 7: 03/31/19 05:31 03/31/19 05:31 Labs: Abnormal Lab Results - Last 24 Hours (Table) 03/31/19 03/31/19 Range/Units 05:31 05:31 RBC 3.75 L (4.30-5.90) m/uL Hgb 11.4 L (13.0-17.5) gm/dL Hct 35.5 L (39.0-53.0) % Plt Count 604 H (150-450) k/uL Neutrophils # 8.1 H (1.3-7.7) k/uL Lymphocytes # 0.8 L (1.0-4.8) k/uL Glucose 112 H (74-99) mg/dL AST 106 H (17-59) U/L ALT 255 H (21-72) U/L Alkaline Phosphatase 147 H (38-126) U/L Total Protein 5.3 L (6.3-8.2) g/dL Albumin 2.7 L (3.5-5.0) g/dL Microbiology - Last 24 Hours (Table) 03/28/19 14:44 Anaerobic Culture - Preliminary Pleural Fluid 03/28/19 14:44 Gram Stain - Preliminary Pleural Fluid Body Fluid Culture - Preliminary - Imaging and Cardiology Chest x-ray: report reviewed, image reviewed Assessment and Plan Assessment: 1. Left-sided parapneumonic effusion, status post placement of pigtail catheter, status post left VATS with decortication 2. Community-acquired pneumonia on admission, currently on Rocephin and vancomycin 3. History of hypertension 4. History of hyperlipidemia 5. Newly diagnosed obstructive sleep apnea on home CPAP 6. Previous tobacco dependence 7. Daily EtOH use Plan: 1. Antibiotic management per primary care service. 2. Encourage is and spirometry 10 times every hour while awake. 3. Bronchodilators per pulmonology. 4. Increase activity, ambulate in hallway. 5. GI/DVT prophylaxis. 6. Medical management per primary care service. 7. May be discharged home from cardiothoracic surgery standpoint when okay with other services. 8. Will continue to see on an as-needed basis. Please contact us with any questions. Time with Patient: Greater than 30
[2019-03-31] MEDS: TAMSULOSIN 0.4 MG CAP.ER.24H PO SCH (09:17)
[2019-03-31] MEDS: ATORVASTATIN 40 MG TAB PO SCH (09:18)
[2019-03-31] MEDS: guaiFENesin 600 MG TABLET.ER PO SCH (09:18)
[2019-03-31] MEDS: LISINOPRIL 20 MG TAB PO SCH (09:18)
[2019-03-31] MEDS: ASPIRIN 81 MG PO SCH (09:18)
[2019-03-31] MEDS: MULTIVITAMINS, THERA 1 EACH TAB PO SCH (09:18)
[2019-03-31] MEDS: POLYETHYLENE GLYCOL 3350 17 GM POWD.PACK PO SCH (09:19)
[2019-03-31] MEDS: HEPARIN SODIUM,PORCINE 5,000 UNIT/ML 1 ML VIAL SQ SCH (09:19)
[2019-03-31] MEDS: VANCOMYCIN 2,000 MG in SODIUM CHLORIDE 0.9% 500 ML 500 ML IVPB SCH (10:31)
[2019-03-31 10:50] VITALS: TEMP 98.3
--- NOTE | 2019-03-31 11:26 | P.DS ---
Providers Date of admission: 03/21/19 11:38 Expected date of discharge: 03/31/19 Attending physician: Naomie Pulido MD Consults: 03/21/19 09:00 Consult Physician Routine Consulting Provider: Ashwini Snyder Consult Reason/Comments: pneumonia with effusion Do you want consulting provider notified?: Yes 03/23/19 13:59 Consult Physician Routine Consulting Provider: Marcelo Taylor Consult Reason/Comments: loculated parapneumonic pleural effusion Do you want consulting provider notified?: Yes Primary care physician: Physician Nonsta Hospital Course: 68-year-old male past medical history of hypertension, dyslipidemia, and remote tobacco abuse who presented to the emergency department with complaints of back pain, coughing, and thick yellow sputum. In the emergency department he initially underwent a chest x-ray which showed atelectasis versus pneumonia at the left base. He underwent a KUB which showed scattered air-fluid levels. He then underwent a CT chest/abdomen/pelvis. This demonstrated a left lower lobe consolidation with associated pleural effusion. Abdomen and pelvis was unremarkable. Laboratory analysis showed elevated white blood cell count 13.8. His initial temperature was 103 and then peaked at 104.7. He was started on IV fluids, antibiotics, and arrangements were made for admission for community-acquired pneumonia with sepsis. He was started on Rocephin and Zithromax. Repeat chest x-ray on 03/21 showed progressively worsening small to moderate left pleural effusion. This was followed by chest ultrasound which did not demonstrate significant effusion. Pulmonary was consulted who agreed with continuing Rocephin and Zithromax. Repeat chest x-ray on the morning of 03/23 showed worsening pleural effusion. Patient underwent CT of the chest that showed a large left-sided pleural effusion. He subsequently had a pigtail catheter placed. Altaplase was instilled on 03/24-03/27 with good results. Patient was noted to have significant effusion on 03/28. He underwent VATS with decortication under cardiothoracic team on 03/28/2019. His chest tube was removed on 03/30/2019. Chest x-ray on 03/31/2019 showed no pneumothorax, persistent small left pleural fluid collection persistent left greater than right basilar acute atelectasis and/or infiltrate. Patient was cleared for discharge from a cardiothoracic standpoint. Patient was seen and examined prior to discharge. No acute events. Patient reports considerable improvement in his breathing since admission. He denies any chest pain, shortness of breath or palpitations. no nausea or vomiting. No fever or chills. Currently saturating low 90s on room air. Looking forward to going home. General: [non toxic], [no distress], [appears at stated age] Derm: [warm], [dry] Head: [atraumatic], [normocephalic], [symmetric] Eyes: [EOMI], [no lid lag], [anicteric sclera]( Cardiovascular: [S1S2 reg], [no murmur], [positive DP pulse bilateral], [left- sided chest dressing clean dry and intact] Lungs: [Decreased breath sounds on the left side], [no rhonchi, no rales] , [no accessory muscle use] Abdominal: [soft], [ nontender to palpation], [no guarding], [no appreciable organomegaly] Ext: [no gross muscle atrophy], [no edema], [no contractures] Neuro: [no focal neuro deficits] Psych: [Alert], [oriented], [appropriate affect] Left lower lobe community-acquired pneumonia, likely bacterial staph or strep, with sepsis and associated loculated left-sided pleural effusion status post VATS Urinary retention Acute hypoxic respiratory failure Hypertension Dyslipidemia Anemia CONNOR Leukocytosis downtrending. Plans: Patient completed 7 days of ceftriaxone and vancomycin, cultures negative thus far, advised to continue levofloxacin for another 7 days. Follow pleural cultures. Cleared by cardiothoracic surgery.needs outpatient follow-up with cardiothoracic surgery and pulmonology. 6 minute walk test to determine oxygen needs. Resolved. Plans: Management as above BP 159/90. Plans: Continue lisinopril. Monitor vitals, adjust medications as necessary. Plans: Start Lipitor. Likely dilutional and some acute blood loss. Plans: Daily CBC. Transfuse if hemoglobin less than 7. Plans: CPAP. [Patient admitted for left lower lobe pneumonia with loculated left-sided pleural effusion status post VATS 03/28/2019. Chest tubes removed yesterday. Cleared by cardiothoracic surgery. Already had 7 days of IV antibiotics, plans to continue levofloxacin by mouth for an additional 7 days. Follow pleural cultures (currently negative) with PCP. Patient would benefit from nebulizer machine for atleast 4 weeks. ] Pertinent Studies: chest x-ray, chest CT, CT chest abdomen and pelvis, KUB, chest ULTRASOUND Procedures: VATS Patient Condition at Discharge: Fair Plan - Discharge Summary New Discharge Prescriptions: New Ipratropium-Albuterol Nebulize [Duoneb 0.5 mg-3 mg/3 ml Soln] 3 ml INHALATION RT-Q4H #90 ampul.neb Tamsulosin [Flomax] 0.4 mg PO PC-BRKFST #30 cap.er.24h Levofloxacin [Levaquin] 750 mg PO DAILY 7 Days #7 tab Continue Multivitamins, Thera [Multivitamin (formulary)] 1 tab PO DAILY Lisinopril [Zestril] 10 mg PO DAILY Lisinopril 20 mg PO DAILY Aspirin EC [Ecotrin Low Dose] 81 mg PO DAILY Atorvastatin [Lipitor] 40 mg PO DAILY Discharge Medication List Aspirin EC [Ecotrin Low Dose] 81 mg PO DAILY 03/19/19 [History] Atorvastatin [Lipitor] 40 mg PO DAILY 03/19/19 [History] Lisinopril 20 mg PO DAILY 03/19/19 [History] Lisinopril [Zestril] 10 mg PO DAILY 03/19/19 [History] Multivitamins, Thera [Multivitamin (formulary)] 1 tab PO DAILY 03/19/19 [History] Ipratropium-Albuterol Nebulize [Duoneb 0.5 mg-3 mg/3 ml Soln] 3 ml INHALATION RT-Q4H #90 ampul.neb 03/31/19 [Rx] Levofloxacin [Levaquin] 750 mg PO DAILY 7 Days #7 tab 03/31/19 [Rx] Tamsulosin [Flomax] 0.4 mg PO PC-BRKFST #30 cap.er.24h 03/31/19 [Rx] Follow up Appointment(s)/Referral(s): Bonny Mejia NPC [Nurse Practitioner] - 04/18/19 3:00 pm Nonstaff,Physician [Primary Care Provider] - 1-2 days Augustine Flores MD [STAFF PHYSICIAN] - 04/14/19 10:00 am Patient Instructions/Handouts: Wound Healing and Your Diet (DC), Pneumonia (DC), Video Assisted Thoracoscopic Surgery (DC) Activity/Diet/Wound Care/Special Instructions: [facility] - [phone] THORACIC DISCHARGE INSTRUCTIONS: 1. No driving for 2 weeks, or until physician gives their ok. 2. No lifting, pushing, or pulling more than 10 pounds for 2 weeks. The physician will advise of any restriction changes. 3. Continue pain control per as needed orders. Alternate acetaminophen (Tylenol) and ibuprofen (Motrin/Advil) for pain. 4. Continue with incentive spirometry and splinting until otherwise directed by the physician. 5. Leave chest tube dressing for 48 hours. After that, remove all dressings and shower daily. 6. Routine incision care. No powders, lotions, ointments on incisions. 7. Please call surgeon/CHILD CARE LEAD TEACHER for temp greater than 101 F or purulent drainage from incisions. Diet: Heart healthy Follow-up PCP within 3 days of discharge. Follow-up with cardiothoracic surgery with the appointment given to you. Follow-up with pulmonology with the appointment given to you. Take all medications as advised. Discharge Disposition: HOME SELF-CARE
[2019-03-31 13:18] VITALS: BP 145/73; PULSE 97; RESP 18
--- NOTE | 2019-03-31 13:42 | P.PN ---
Subjective Progress Note Date: 03/31/19 Principal diagnosis: Acute community acquired left lower lobe pneumonia A pleasant 68-year-old male patient, a nonsmoker without any previous history of lung disease, comes in with pleuritic left-sided chest pain. The patient was admitted to [facility] for a graduation democrat and he felt sick, he was having chills and fever and he was having pleuritic left-sided chest pain which was quite extensive. At that point, he decided to come in to the hospital. His symptoms developed within 24 hours prior to him coming to the ED. No nausea. No vomiting. He was feeling quite weak. No bronchospasm or wheezing. No hemoptysis. Some limited congested cough without any significant sputum production. No exposure to any chemicals or respiratory irritants. Initial CAT scan of the chest showed left lower lobe consolidation with some pleural thickening consistent with pneumonia and the patient was started on a combination of Rocephin and Zithromax. Over the past 24 hours, the patient's pain remains quite active. Today's chest x-ray shows some worsening in the left lower lobe consolidation. There was some effusion as noted on the chest x-ray. Ultrasound of the chest was done and the fluid was small and based on that no marking was done. Collect however, the patient is feeling better. His pain is subsiding 1 is taking Homer and Toradol for pain control. His white cell count is at 15.8. No recurrent pneumonias. No hemoptysis. No history of DVT or pulmonary embolism. The patient is seen today 03/22/2019 in follow-up on the regular medical floor. He is currently sitting up at the bedside. Awake and alert in no acute distress. He is having a little bit more left-sided chest discomfort today as compared to yesterday. He has a loose cough. Maintaining O2 saturations in the 90s on 2 L. On room air assessment he was 83%. Blood culture reveals no growth to date. Sputum culture pending. White count 15.7. Hemoglobin 12.3. Urine Legionella antigen not detected. He remains on ceftriaxone and azithromycin along with bronchodilators. He is working well with the incentive spirometer. Toradol for pain control. On 03/23/2019 patient seen in follow-up. Patient apparently developed worsening dyspnea, he was having difficulty walking, he would the desaturate into the 80s with walking even 20 feet. Follow-up chest x-ray has been reviewed showing increasing left-sided pleural effusion, with underlying atelectasis, infiltrate or mass difficult to exclude. Follow-up chest CT showed interval development of a large left-sided pleural effusion with small aerated left lung apex. Is a parapneumonic effusion, with a recent increase in size. Today's labs have been reviewed, showing white blood cell count of 16.2, hemoglobin of 13.2, influenza screen was negative, urine legionella antigen was not detected, patient is on Flomax and Rocephin for antibiotic coverage. In addition patient had some low- grade fevers last night with a temp of 100.8F. So far blood and sputum cultures remain negative, and discussed the case with interventional radiology and we has agreed to put a CT-guided pigtail chest tube catheter for drainage of the left-sided pleural effusion, and this was done this afternoon by Dr. Bates, Pleur-evac has been connected to the pigtail chest tube and there has already been 500 mL of clear yellow pleural fluid which was sent for cultures, and pleural fluid analysis. Cardiac thoracic surgery has been consulted as well for a possibility of lung decortication On 03/24/2019 patient was seen in follow-up on selective care unit, this morning patient was quite tachycardic, and was having irregular heart rhythm on auscultation, in addition he continues to be febrile, last night his fever was 102.3 Fahrenheit, EKG was ordered, and patient was placed on remote telemetry, however in view of his significant parapneumonic pleural effusion, requiring drainage, and the possibility of arrhythmia patient was transferred to the selective care unit. While on the monitor patient has been in sinus tachycardia, with occasional PACs, no A. fib was captured on the monitor strips, I could not find the EKG that was ordered this morning. Patient has denied any central chest pain, patient has put out additional 1400 cc of pleural drainage initially draining 500 mL after immediate placement of the left-sided pigtail c hest tube catheter. Follow-up chest x-ray today showed decreased but residual moderate-sized left pleural effusion with adjacent atelectasis. Patient is working on incentive spirometer, achieving 1200 on the today, lung sounds reveal diminished breath sounds over left lower lobe, with some crackles. He is on 2 L of oxygen with a pulse ox of 93%, low-grade fever this afternoon, he is hemodynamically stable. Today's labs have been reviewed, white blood cell count is down trending, 14.8, hemoglobin is 12.7, electrodes and renal profile were within normal limits. Influenza screen has been negative, urine legionella antigen has been negative. Fluid LDH was 740, revealing exudative fluid, pl eural fluid cultures are negative. On 03/27/2019 patient seen in follow-up on selective care unit. He is awake and alert, in no acute distress, left chest pigtail chest tube catheter remains in place, and there has been 1.5 L of output in the last 24 hours with significant improvement in the size of left-sided pleural effusion on today's chest x-ray. There is residual left basilar atelectasis or associated infiltrate. Patient will receive additional dose of TPA today, his surgery is on hold. No fever or chills. Pleural fluid cultures have shown no growth, sputum blood culture were negative. Patient has been on Zithromax and Rocephin, and vancomycin has been started On 03/28/2019 patient had additional 600 mL out of the left posterior pigtail chest tube catheter after another dose of alteplase that was given yesterday. Chest x-ray showed persistent left greater than right pleural effusions and associated bibasilar acute infiltrate. This was followed by CT chest without contrast knowing small residual left pleural fluid collection which has improved from prior CT chest however there is incomplete drainage of the pleural fluid collection, still showing loculated pleural effusion. And developing central and right infrahilar consolidation. In view of these findings, and persistence of loculated parapneumonic pleural effusions surgery is tentatively put the patient on a schedule Ceftin for a left VATS/possible thoracotomy with decortication by Dr. Flores. On 03/29/2019 patient seen in follow-up on selective care unit. He is awake and alert, having some mild discomfort from the postsurgical incisions. Incentive spirometry effort is 1500 today, patient has a productive cough with production of small dark bloody phlegm. Low-grade fever with a temp of 99.7 Fahrenheit, blood pressure stable. This is postop day 1 post thoracoscopic video-assisted decortication of the left lung for loculated parapneumonic effusion. 2 left- sided chest tubes are present, and there has been 600 mL out of the posterior chest tube and 155 mL out of the left anterior chest tube, thin serosanguineous fluid in the Pleur-evac. Today's labs showed a white blood cell count of 14.0, hemoglobin of 11.6, electrolytes and renal profile within normal limits. All cultures remain negative to date. Patient is on IV Rocephin, and vancomycin. On 03/30/2019 patient seen in follow-up on selective care unit, he is awake and alert, he is off the oxygen today is pulse ox is 90%, incentive spirometry effort is around 1500 mL. He states he is breathing easier, although still having some left-sided chest discomfort from his incisions and chest tube placements. His been afebrile, so far microbiology results pleural fluid blood and sputum cultures are negative. He is on Rocephin and vancomycin. There has been minimal output from the left posterior and anterior chest tubes in the last 24 hours, chest tubes have been placed to waterseal. This morning's chest x-ray shows no evidence of pneumothorax, and some basilar atelectasis, and improving aeration at the left lung base. On 03/31/2019 he seen in follow-up on selective care unit, awake and alert, in no acute distress, he is on room air pulse ox of 94%, he is working on incentive spirometer, he is tolerating ambulation, his left sided chest tubes have been discontinued yesterday, follow-up chest x-ray today shows no pneumothorax, persistent small left pleural fluid collection, and bibasilar atelectasis left greater than the right. Clinically remains stable, all cultures remain negative to date, patient has been treated with a combination of Rocephin, and vancomycin, patient is stable for discharge home today on 7 more days of oral Levaquin. Objective - Vital Signs Vital signs: Vital Signs Temp 98.3 F 03/31/19 10:38 Pulse 97 03/31/19 12:55 Resp 18 03/31/19 12:55 BP 145/73 03/31/19 12:55 Pulse Ox 94 L 03/31/19 12:55 Intake & Output 03/30/19 03/31/19 03/31/19 18:59 06:59 18:59 Intake Total 702 360 Output Total 3150 2600 1200 Balance -2448 -2600 -840 Weight 104.5 kg Intake: Oral 702 360 Output: Urine 3150 2600 1200 Other: Voiding Method Urinal Urinal Urinal # Voids 2 2 2 - Exam GENERAL EXAM: Alert, pleasant, 68-year-old white male, on room air and mild amount of discomfort from the surgical incisions but no apparent distress. HEAD: Normocephalic/atraumatic. EYES: Normal reaction of pupils, equal size. Conjunctiva pink, sclera white. NOSE: Clear with pink turbinates. THROAT: No erythema or exudates. NECK: No masses, no JVD, no thyroid enlargement, no adenopathy. CHEST: No chest wall deformity. Symmetrical expansion. Interval removal of left posterior and anterior chest tubes chest tube sites clean dry and intact, covered with dressings LUNGS: Equal air entry with diminished breath sounds on the left, no rubs ABDOMEN: Soft, nontender. No hepatosplenomegaly, normal bowel sounds, no guarding or rigidity. EXTREMITIES: No clubbing, no edema, no cyanosis, 2+ pulses and upper and lower extremities. MUSCULOSKELETAL: Muscle strength and tone normal. SPINE: No scoliosis or deformity SKIN: No rashes CENTRAL NERVOUS SYSTEM: Alert and oriented -3. No focal deficits, tone is normal in all 4 extremities. PSYCHIATRIC: Alert and oriented -3. Appropriate affect. Intact judgment and insight. - Labs CBC & Chem 7: 03/31/19 05:31 03/31/19 05:31 Labs: Abnormal Lab Results - Last 24 Hours (Table) 03/31/19 03/31/19 Range/Units 05:31 05:31 RBC 3.75 L (4.30-5.90) m/uL Hgb 11.4 L (13.0-17.5) gm/dL Hct 35.5 L (39.0-53.0) % Plt Count 604 H (150-450) k/uL Neutrophils # 8.1 H (1.3-7.7) k/uL Lymphocytes # 0.8 L (1.0-4.8) k/uL Glucose 112 H (74-99) mg/dL AST 106 H (17-59) U/L ALT 255 H (21-72) U/L Alkaline Phosphatase 147 H (38-126) U/L Total Protein 5.3 L (6.3-8.2) g/dL Albumin 2.7 L (3.5-5.0) g/dL Microbiology - Last 24 Hours (Table) 03/28/19 14:44 Anaerobic Culture - Preliminary Pleural Fluid 03/28/19 14:44 Gram Stain - Preliminary Pleural Fluid Body Fluid Culture - Preliminary Assessment and Plan Plan: Assessment: 1 acute left lower lobe community-acquired pneumonia complicated by a parapneumonic effusion, complicated, status post thoracoscopic decortication of the left lung, postoperative day 3. 2 acute hypoxic respiratory failure, improving 3 acute febrile illness secondary left lower lobe pneumonia, improved 4 acute leukocytosis secondary to above, improving 5 hypertension 6 hyperlipidemia 7 obstructive sleep apnea with an AHI of 9 and the patient was started on CPAP therapy Plan: Patient is without any specific complaints, continue encouraging deep breathing and coughing, today's chest x-ray has been reviewed showing no pneumothorax, small left-sided pleural effusion and bibasilar atelectasis. Clinically stable, breathing is stable. Tolerating ambulation, all cultures remain negative to date. From pulmonary perspective patient is stable for discharge home on 7 more days of oral Levaquin. He will need close follow-up in the office next week by Dr. Snyder, he is planning on finding a wood flooring specialist [place] in the [place] around the area of his residence, we will load old his chest x- rays and CT chest onto a disc for him for his new wood flooring specialist to review and have on record. I performed a history & physical examination of the patient and discussed their management with my nurse practitioner, Manda Preston. I reviewed the nurse practitioner's note and agree with the documented findings and plan of care. Lung sounds are positive for diminished sounds over left lung. The findings and the impression was discussed with the patient. I attest to the documentation by the nurse practitioner. Time with Patient: Less than 30
== END 2019-03-31 14:16 | disposition home health service (06) | DRG 853 ==
LOC: EC 18:41 → 4MS4W 03-20 00:26 → OBSVTOIN 03-21 11:38 → 3SCARD 03-24 08:57
PROVIDERS: ADMIT Internal Medicine; ATTEND Internal Medicine
PROC: 0W9B30Z Drainage of Left Pleural Cavity with Drainage Device, Percutaneous Approach (ICD-10-PCS; 2019-03-23)
PROC: 0BNL4ZZ Release Left Lung, Percutaneous Endoscopic Approach (ICD-10-PCS; principal; 2019-03-28 08:25)
DX: A40.9 Streptococcal sepsis, unspecified (principal); J96.01 Acute respiratory failure with hypoxia; J15.20 Pneumonia due to staphylococcus, unspecified; J15.4 Pneumonia due to other streptococci; J91.8 Pleural effusion in other conditions classified elsewhere; J93.82 Other air leak; J98.11 Atelectasis; D64.9 Anemia, unspecified; E78.5 Hyperlipidemia, unspecified; E86.0 Dehydration; G47.00 Insomnia, unspecified; I10 Essential (primary) hypertension; G47.33 Obstructive sleep apnea (adult) (pediatric); K59.00 Constipation, unspecified; Z90.49 Acquired absence of other specified parts of digestive tract; Z90.89 Acquired absence of other organs; Z98.890 Other specified postprocedural states; Z79.82 Long term (current) use of aspirin; Z79.899 Other long term (current) drug therapy; Z80.8 Family history of malignant neoplasm of other organs or systems; Z87.891 Personal history of nicotine dependence; Z83.79 Family history of other diseases of the digestive system; Z99.89 Dependence on other enabling machines and devices
CPT/HCPCS: 32551; 36415; 71045; 71046; 71250; 71260; 74018; 74177; 76604; 77012; 80048; 80053; 80202; 81001; 82550; 82945; 83605; 83615; 83735; 84157; 85025; 85027; 85610; 86850; 86900; 86901; 87040; 87070; 87075; 87102; 87116; 87205; 87206; 87449; 87502; 89050; 94640; 94667; 94760; 96361; 96374; 96375; 99285